=== PATIENT | female | born 1945 | race Caucasian/White ===

== ENCOUNTER 2023-02-12 09:30 | Outpatient (RCR) | payer MEDICARE, MEDICAID, SELFPAY ==
[2023-02-05 09:39] VITALS: BP 105/85; PULSE 80; RESP 18; TEMP 36.1; BMI 24.7
--- NOTE | 2023-02-05 12:19 | PCM.WC.HP ---
History of Present Illness Date of Service: 02/05/23 Chief Complaint: abdominal wall ulcer History of Wound: Stacie is a pleasant 77 yo woman that presents to the wound healing center today for evaluation and treatment for a nonhealing ulcer of her abdominal wall that has been present for approximately 6 months. She is a poor historian due to dementia/cognitive impairment. She resides at an assisted living facility in [facility]. She reports that she has 3 sons. She is unable to tell us if she has had any abdominal surgeries or C-sections but the area where the ulcer is located has the appearance of scar tissue and is at the suprapubic area where an incision for a or panniculectomy could be located. It does have the appearance of an old incision site. No surgical history is available and she denies history. She does have diabetes and reports that she has been obese previously and weighed 260 lbs at one point but is now approx. 140 lb. It looks like she has been treated with Silvadene. She had been treated with Keflex. [facility] Medical History (Updated 02/12/23 @ 07:[address] Joslyn Walsh, ) B12 deficiency Depression, major, in remission HTN (hypertension) Hyperlipidemia Insulin dependent diabetes mellitus Neuropathy due to type 2 diabetes mellitus ИВАН (obstructive sleep apnea) Osteoporosis Polymyalgia rheumatica Renal artery stenosis Restless leg syndrome Rheumatoid arthritis Type 2 diabetes mellitus without complications Home Medications abatacept 125 mg/mL subcutaneous auto-injector 125 mg subcut QWEEK 02/05/23 [History Last Taken Unknown] aspirin 81 mg tablet,delayed release (Adult Aspirin Regimen) 81 mg PO DAILY 02/05/23 [History Last Taken Unknown] atorvastatin 80 mg tablet (Lipitor) 80 mg PO DAILY 02/05/23 [History Last Taken Unknown] buspirone 5 mg tablet 10 mg PO BID 02/05/23 [History Last Taken Unknown] calcium carb,cit ER 600 mg-vit D3 12.5 mcg (500 unit) tablet,ext.rel tab PO 02/05/23 [History Last Taken Unknown] clopidogrel 75 mg tablet (Plavix) 75 mg PO DAILY 02/05/23 [History Last Taken Unknown] clotrimazole-betamethasone 1 %-0.05 % topical cream 1 applic topical BID 02/05/23 [History Last Taken Unknown] cyanocobalamin (vitamin B-12) 1,000 mcg capsule 1,000 mcg PO DAILY 02/05/23 [History Last Taken Unknown] cyclobenzaprine 10 mg tablet 10 mg PO BID 02/05/23 [History Last Taken Unknown] duloxetine 60 mg capsule,delayed release (Cymbalta) 60 mg PO DAILY 02/05/23 [History Last Taken Unknown] escitalopram oxalate 5 mg tablet (Lexapro) 5 mg PO DAILY 02/05/23 [History Last Taken Unknown] folic acid 800 mcg tablet 800 mcg PO DAILY 02/05/23 [History Last Taken Unknown] terbinafine HCl 250 mg tablet 250 mg PO DAILY 02/05/23 [History Last Taken Unknown] topiramate 25 mg sprinkle capsule (Topamax) 25 mg PO QHS 02/05/23 [History Last Taken Unknown] tramadol 50 mg tablet 50 mg PO Q6H PRN pain 02/05/23 [History Last Taken Unknown] Lactobacillus acidophilus (Acidophilus capsule) 500 mmu cells PO DAILY 02/11/23 [History Last Taken Unknown] Saccharomyces boulardii 250 mg capsule (Florastor) 250 mg PO BID 02/11/23 [History Last Taken Unknown] denosumab 60 mg/mL subcutaneous syringe (Prolia) mg subcut 02/11/23 [History Last Taken Unknown] diclofenac sodium 1 % topical gel topical 02/11/23 [History Last Taken Unknown] duloxetine 60 mg capsule,delayed release (Cymbalta) 60 mg PO DAILY 02/11/23 [History Last Taken Unknown] gabapentin 600 mg tablet (Neurontin) 600 mg PO TID 02/11/23 [History Last Taken Unknown] glucosamine sulfate 500 mg tablet (Glucosamine) 1,000 mg PO DAILY 02/11/23 [History Last Taken Unknown] insulin aspart U-100 100 unit/mL subcutaneous solution (Novolog U-100 Insulin aspart) 3 unit subcut DAILY 02/11/23 [History Last Taken Unknown] insulin detemir U-100 100 unit/mL (3 mL) subcutaneous pen (Levemir FlexPen) 3 unit subcut QHS 02/11/23 [History Last Taken Unknown] insulin glargine 100 unit/mL (3 mL) subcutaneous pen (Lantus Solostar U-100 Insulin) 1 unit subcut QPM 02/11/23 [History Last Taken Unknown] lisinopril 5 mg tablet 5 mg PO DAILY 02/11/23 [History Last Taken Unknown] loratadine 10 mg disintegrating tablet (Alavert) 10 mg PO DAILY 02/11/23 [History Last Taken Unknown] lorazepam 0.5 mg tablet (Ativan) 0.5 mg PO BID 02/11/23 [History Last Taken Unknown] magnesium hydroxide 400 mg/5 mL oral suspension (Dulcolax (magnesium hydroxide)) 5 ml PO DAILY 02/11/23 [History Last Taken Unknown] magnesium oxide 400 mg PO DAILY 02/11/23 [History Last Taken Unknown] multivitamin (Daily Multi-Vitamin tablet) 1 tab PO DAILY 02/11/23 [History Last Taken Unknown] omeprazole 40 mg capsule,delayed release 40 mg PO DAILY 02/11/23 [History Last Taken Unknown] oxybutynin chloride 10 mg tablet,extended release 24 hr 10 mg PO DAILY 02/11/23 [History Last Taken Unknown] potassium chloride 20 mEq tablet,extended release(part/cryst) (Klor-Con M) 20 meq PO BID 02/11/23 [History Last Taken Unknown] sulfasalazine 500 mg tablet (Azulfidine) 0.5 g PO DAILY 02/11/23 [History Last Taken Unknown] Allergy/AdvReac Type Severity Reaction Status Date / Time adhesive tape Allergy Mild rash Verified 02/05/23 09:53 morphine Allergy Mild Nausea Verified 02/05/23 09:53 tetracyclines Allergy Mild Rash Uncoded 02/05/23 09:53 unable to obtain Social History Smoking Status: Never smoker ROS Constitutional Constitutional: Denies chills, fatigue or fever(s) Eyes Eyes: Denies blurry vision, change in vision or loss of vision ENT HEENT: Denies dysphagia, hearing loss or sore throat Cardiovascular Cardiovascular: Denies chest pain, edema or palpitations Respiratory/Chest Respiratory/Chest: Denies dry cough, dyspnea, dyspnea on exertion, productive cough or wheezing Gastrointestinal Gastrointestinal: Denies diarrhea, nausea or vomiting Genitourinary Genitourinary: Denies dysuria or polyuria Musculoskeletal Musculoskeletal: Denies arthralgias, joint stiffness or muscle weakness Integumentary Integumentary: Reports erythema and wounds Neurologic Neurologic: Denies dizziness, memory loss or weakness Psychiatric Psychiatric: Denies homicidal ideation or suicidal ideation Endocrine Endocrinology: Denies polydipsia, polyphagia or polyuria Hematologic/Lymphatic Hematologic/Lymphatic: Denies easy bleeding or easy bruising Allergic/Immunologic Allergic/Immunologic: Denies throat swelling, tongue swelling or urticaria Vital Signs Vital Signs Vital Signs: 02/05/23 09:39 Temperature 97 F L Temperature Source Temporal Pulse Rate 80 Respiratory Rate 18 Blood Pressure 105/85 H Blood Pressure Mean 91 Blood Pressure Source Monitor Blood Pressure Position Semi-Fowlers Blood Pressure Location Left Arm Weight Weight: 63.503 kg Body Mass Index (BMI) 24.7 Physical Exam Const alert, oriented x3 and no apparent distress General Appearance: cooperative and comfortable HEENT normocephalic and head/scalp atraumatic Resp normal respiratory effort Effort and Inspection: able to speak in complete sentences Cardio regular rate and regular rhythm Skin Wounds: wounds noted Wound Narrative: as in clinical panel Psych mental status grossly normal, thought process normal, cooperative and affect normal Debridement Note Debridement Note Wound debrided: left lower abdomen Laterality: Left Type of Debridement: Excisional debridement Anesthesia Used: 4% Lidocaine Solution, 5% Lidocaine Gel and Cetacaine Depth: Down to and including healthy tissue and in the subcutaneous layer Percentage of wound debrided: 100 Instrument Used: #15 blade and Forceps Tissue Removed: Yellow slough, devitalized tissue Severity: Fat Layer Exposed Amount of bleeding with debridement: Mild Bleeding Controlled with: Compression and gauze Patient tolerated procedure: Patient tolerated procedure well Post-Debridement Measurements and Additional Note: Post-Debridement Measurements/Treatment PATRICIA - Nurse 1 - General Ulcer Assessment Start: 02/05/23 09:39 Freq: Status: Active Protocol: JOSUE Activity Type Activity Date Activity User E-sign Co-sign Detail Recorded Client Recorded Date Recorded By Document 02/05/23 09:39 [id number] 02/05/23 09:48 RB 02/05/23 09:39 - Today's Visit Information Type of service Initial Visit Arrival Mode Wheelchair Transfer Assistance None Patient Identification Verified (Name & Yes ) Patient Requires Transmission-Based No Precautions Height and Weight Height 5 ft 3 in Weight 63.503 kg Weight in Pounds 140.0 lbs Body Mass Index (BMI) 24.7 BMI Classification Normal BSA - Chris 1.66 Vital Signs Temperature (97.8 F-99.1 F) 97 F L Temperature Source Temporal Pulse Rate (60-100) 80 Pulse Location Monitor Respiratory Rate (12-18) 18 Respiratory rate source Observation Blood Pressure (90/60-120/80) 105/85 H Blood Pressure Mean 91 Source Monitor Position Semi-Fowlers Blood Pressure Location Left Arm Pain Scale: 0-10 Numeric Is Patient Pain Free? Yes Communication Assessment Preferred language Greek Electronic Plotting System Operator Required No Able to Read Yes Able to Write Yes Communication Tools None Right Hearing Abillity Normal Left Hearing Abillity Normal Visual Assistive Devices None Teaching Assessment Preferences Verbal,Written, Demonstration Barriers to Learning None Readiness To Learn Good Willingness to Engage in Self Management Med Activies Readiness to Engage in Self Management Med Activities Anxiety Level Calm Cooperation Cooperative Perception Coherent Interest in Health Problem Asks Questions Education Importance Acknowledges Need Does Patient Smoke tobacco or other No substances Smoking Status Never smoker Functional Assessment Recent Decline in Ability to Perform Ambulation, Bathing, Toileting, Transferring Culture/Confucianism/Manager Roofing Cultural/Confucianism Needs that may affect No Treatment Plan Would you allow our hospital remotely piloted vehicle controller to No meet you for the purpose of spiritual/ emotional support? Manager Roofing to contact place of anglican No Teaching: Wound Center *Welcome to the Wound Center -Person Taught Patient -Teaching Method Discussion -Response to teaching Verbalize understanding WC - Nurse 1 - General Ulcer Measurement Start: 02/05/23 09:39 Freq: Status: Active Protocol: Activity Type Activity Date Activity User E-sign Co-sign Detail Recorded Client Recorded Date Recorded By Document 02/05/23 09:39 [id number] 02/05/23 09:48 RB 02/05/23 09:39 Wound Center Nurse 1 1. L abd fold -Combined with other wound No -Current Size (cm) - Length 2 -Current Size (cm) - Width 10 -Current Size (cm) - Depth 0.3 -Total Square Cm 20 -Photo Taken Yes -Tunneling No -Undermining/Tunneling No -Circular Undermining No -Exudate Amt Large -Exudate Type Serosanguineous -Wound Margin Thickened & Rolled Under -Granulation Amt Small (1-33%) -Granulation Quality Red Jacket -Slough/Fibrin Yes -Necrosis Amt Large (67-100%) -Necrotic Tissue Type Adherent Slough -Structure Exposed N/A -Texture (Lupis-wound Skin Appearance) Assessed -Moisture (Lupis-wound Skin Appearance) Assessed -Color (Lupis-wound Skin Appearance) Assessed -Temperature (Lupis-wound Skin No Abnormality Appearance) (Pt Warm) -Tenderness on Palpation (Lupis-wound No Skin Appearance) -Foul Odor after Cleansing Yes -Anesthetic Used 4% Lidocaine Solution,5% Lidocaine Gel WC - Nurse 2 - General Ulcer CM Notes Start: 02/05/23 09:39 Freq: Status: Active Protocol: Activity Type Activity Date Activity User E-sign Co-sign Detail Recorded Client Recorded Date Recorded By Document 02/05/23 10:06 MW [id number] 02/05/23 10:34 MW 02/05/23 10:06 Wound Center Nurse 2 -Time 10:06 -Correct Patient Yes -Correct Side, Site, Position Yes -Correct Procedure Yes -Procedure Performed Yes -Type of Procedure Debridement -Clinical Debridement Subcutaneous -Tissue Removed Subcutaneous -Post Debridement (cm) - Length 2.7 -Post Debridement (cm) - Width 10.0 -Post Debridement (cm) - Depth 0.5 -Total Square (Post) (cm) 27.00 -Area of Debridement (cm) - Length 2.7 -Area of Debridement (cm) - Width 10.0 -Total Square (Area) (cm) 27.00 -Tunneling No -Undermining/Tunneling No -Circular Undermining No -Wound/Ulcer Outcome Not Healed -Ulcer Cleansing Rinsed/ Irrigated with Saline -Foul Odor after Cleansing No -Bioengineered Tissue No -Bleeding Controlled with Pressure -Treatment Response Procedure Tolerated Well -Offloading No -Debridement - Subq, 1st 20sq cm Yes -Debridement, SubQ, ea addt'l 20sq cm 1 or part thereof Pain Scale: 0-10 Numeric Is Patient Pain Free? Yes - Nurse 3 - General Ulcer D/C NN Start: 02/05/23 09:39 Freq: Status: Active Protocol: Activity Type Activity Date Activity User E-sign Co-sign Detail Recorded Client Recorded Date Recorded By Document 02/05/23 10:52 DL [id number] 02/05/23 10:54 DL 02/05/23 10:52 Wound Care Center Nurse 3 1. L abd fold -Ulcer Cleansing Rinsed/ Irrigated with Saline -Foul Odor after Cleansing No -Other Dressing hydrogel -Primary Dressing Covered/Secured with Dry Gauze, Secured with Tape Treatment Response Procedure Tolerated Well Pain Scale: 0-10 Numeric Is Patient Pain Free? Yes WC - Visit Discharge Discharge Condition Stable Ambulatory Status Ambulatory, Wheelchair Transportation Private [facility] Facility Type Grain Elevator Motor Starter Care Facility Orders Sent Yes Assessment/Plan Assessment/Plan (1) Nonhealing nonsurgical wound with fat layer exposed: CODE(S): T14.8XXA - Other injury of unspecified body region, initial encounter (2) Skin ulcer of abdomen with fat layer exposed: CODE(S): L98.492 - Non-pressure chronic ulcer of skin of other sites with fat layer exposed (3) Type 2 diabetes mellitus without complications: CODE(S): E11.9 - Type 2 diabetes mellitus without complications QUALIFIERS: Diabetes mellitus extermination supervisor insulin use: with extermination supervisor use Qualified Code(s): E11.9 - Type 2 diabetes mellitus without complications; Z79.4 - intermediate card tender (current) use of insulin (4) Neuropathy due to type 2 diabetes mellitus: CODE(S): E11.40 - Type 2 diabetes mellitus with diabetic neuropathy, unspecified (5) Insulin dependent diabetes mellitus: (6) Polymyalgia rheumatica: CODE(S): M35.3 - Polymyalgia rheumatica (7) Rheumatoid arthritis: CODE(S): M06.9 - Rheumatoid arthritis, unspecified QUALIFIERS: Rheumatoid arthritis location: multiple sites Rheumatoid factor presence: unspecified presence Qualified Code(s): M06.9 - Rheumatoid arthritis, unspecified (8) HTN (hypertension): CODE(S): I10 - Essential (primary) hypertension QUALIFIERS: Hypertension type: primary hypertension Qualified Code(s): I10 - Essential (primary) hypertension (9) Renal artery stenosis: CODE(S): I70.1 - Atherosclerosis of renal artery PLAN: Plan Debridement performed today in clinic as annotated above. At home wound-care instructions: Wash ulcer with soap and water. Apply Santyl to wound bed. If unable to obtain sample then would use Fibracol. Consider traditional wound vac. Keep dressing clean and dry. Off-loading: The patient was instructed to avoid pressure and friction on the affected areas. Reposition every 2 hours at minimum. Avoid prolonged standing and/or dangling of legs. When seated, feet should be elevated at chest level. Frequent ambulation is encouraged. Diet: Patient encouraged to increase protein intake while taking caution to avoid high carbohydrate and/or sugar intake. Labs/cultures/imaging: Culture taken today. Follow-up: Return in 1 week for wound care follow up. Return sooner or report to the emergency room should symptoms worsen, or new symptoms arise. Note: [employer] speech recognition kiss mixer software was used to create portions of this document. Sound-alike and misspelled words, as well as other kiss mixer errors may be contained in the documentation.
[2023-02-12 09:34] VITALS: BP 120/60; PULSE 88; RESP 18; TEMP 35.5; BMI 24.7
--- NOTE | 2023-02-12 13:10 | PN.PCM_ITS ---
History of Present Illness Date of Service: 02/12/23 Chief Complaint: abdominal wall ulcer History of Wound: Stacie is a pleasant 77 yo woman that presents to the wound healing center today for evaluation and treatment for a nonhealing ulcer of her abdominal wall that has been present for approximately 6 months. She is a poor historian due to dementia/cognitive impairment. She resides at an assisted living facility in [facility]. She reports that she has 3 sons. She is unable to tell us if she has had any abdominal surgeries or C-sections but the area where the ulcer is located has the appearance of scar tissue and is at the suprapubic area where an incision for a or panniculectomy could be located. It does have the appearance of an old incision site. No surgical history is available and she denies history. She does have diabetes and reports that she has been obese previously and weighed 260 lbs at one point but is now approx. 140 lb. It looks like she has been treated with Silvadene. She had been treated with Keflex. Subjective Subjective Stacie returns today for treatment of a nonhealing ulcer of her left abdominal skin fold. She was started on treatment with Santyl and has been tolerating this. Her wound culture was positive for several bacteria and she was started on Augmentin but does not know if she is taking this medication. It is present on her medication reconciliation form that was sent with her from the SNF where she resides. She admits increased pain but denies fever, chills, increased drainage or erythema. Objective Data Objective Data Vital Signs: Vital Signs Temp Pulse Resp BP 96 F L 88 18 120/60 02/12/23 09:34 02/12/23 09:34 02/12/23 09:34 02/12/23 09:34 Weight: 63.503 kg Body Mass Index (BMI) 24.7 Lab / Micro Data Micro: Microbiology 02/05/23 10:30 Wound Abcess - Abdominal Gram Stain - Final 02/05/23 10:30 Wound Abcess - Abdominal Wound Culture - Final Enterococcus faecalis 02/05/23 10:30 Wound Abcess - Abdominal Anaerobic Culture - Final No anaerobic bacteria isolated. Physical Exam Const alert, oriented x3 and no apparent distress General Appearance: cooperative and comfortable HEENT normocephalic and head/scalp atraumatic Resp normal respiratory effort Effort and Inspection: able to speak in complete sentences Cardio regular rate and regular rhythm Skin Wounds: wounds noted Wound Narrative: as in clinical panel Psych mental status grossly normal, thought process normal, cooperative and affect normal Debridement Note Debridement Note Wound debrided: left lower abdomen Laterality: Left Type of Debridement: Excisional debridement Anesthesia Used: 4% Lidocaine Solution, 5% Lidocaine Gel and Cetacaine Depth: Down to and including healthy tissue and in the subcutaneous layer Percentage of wound debrided: 100 Instrument Used: #15 blade and Forceps Tissue Removed: Yellow slough, devitalized tissue Severity: Fat Layer Exposed Amount of bleeding with debridement: Mild Bleeding Controlled with: Compression and gauze Patient tolerated procedure: Patient tolerated procedure well Post-Debridement Measurements and Additional Note: Post-Debridement Measurements/Treatment - Nurse 1 - General Ulcer Assessment Start: 02/05/23 09:39 Freq: Status: Active Protocol: JENNI Activity Type Activity Date Activity User E-sign Co-sign Detail Recorded Client Recorded Date Recorded By Document 02/05/23 09:39 [id number] 02/05/23 09:48 RB Document 02/12/23 09:34 RB [id number] 02/12/23 09:36 RB 02/05/23 02/12/23 09:39 09:34 - Today's Visit Information Type of service Initial Visit Follow-up Visit (Physician/BARGAIN TABLE CLERK ) Arrival Mode Wheelchair Ambulatory Transfer Assistance None None Patient Identification Verified (Name & Yes Yes ) Patient Requires Transmission-Based No No Precautions Height and Weight Height 5 ft 3 in Weight 63.503 kg Weight in Pounds 140.0 lbs Body Mass Index (BMI) 24.7 24.7 BMI Classification Normal Normal BSA - Chris 1.66 Vital Signs Temperature (97.8 F-99.1 F) 97 F L 96 F L Temperature Source Temporal Temporal Pulse Rate (60-100) 80 88 Pulse Location Monitor Monitor Respiratory Rate (12-18) 18 18 Respiratory rate source Observation Observation Blood Pressure (90/60-120/80) 105/85 H 120/60 Blood Pressure Mean (mm Hg) 91 80 Source Monitor Monitor Position Semi-Fowlers Semi-Fowlers Blood Pressure Location Left Arm Left Arm History Since Last Visit- (Skip if this is Patient's initial visit) Have you changed medications since your No last visit? Any new allergies or adverse reactions No Had a fall/change in ADL's that may No increase risk of falls Signs or symptoms of abuse and/or No neglect since last visit Have you been in the hospital since your No last visit? Has dressing in place as prescribed Yes Has compression in place as prescribed No Has offloadiing in place as prescribed No Experienced any changes in pain level or No management Pain Scale: 0-10 Numeric Is Patient Pain Free? Yes Yes Communication Assessment Preferred language Mosotho Quality Assurance Qa Lab Analyst Required No Able to Read Yes Able to Write Yes Communication Tools None Right Hearing Abillity Normal Left Hearing Abillity Normal Visual Assistive Devices None Teaching Assessment Preferences Verbal,Written, Demonstration Barriers to Learning None Readiness To Learn Good Willingness to Engage in Self Management Med Activies Readiness to Engage in Self Management Med Activities Anxiety Level Calm Cooperation Cooperative Perception Coherent Interest in Health Problem Asks Questions Education Importance Acknowledges Need Does Patient Smoke tobacco or other No substances Smoking Status Never smoker Functional Assessment Recent Decline in Ability to Perform Ambulation, Bathing, Toileting, Transferring Culture/Anabaptism/Helpdesk Analyst Cultural/Anabaptism Needs that may affect No Treatment Plan Would you allow our hospital marketing ambassador to No meet you for the purpose of spiritual/ emotional support? Helpdesk Analyst to contact place of nondenominational No Teaching: Wound Center *Welcome to the Wound Center -Person Taught Patient -Teaching Method Discussion -Response to teaching Verbalize understanding WC - Nurse 1 - General Ulcer Measurement Start: 02/05/23 09:39 Freq: Status: Active Protocol: Activity Type Activity Date Activity User E-sign Co-sign Detail Recorded Client Recorded Date Recorded By Document 02/05/23 09:39 RB [id number] 02/05/23 09:48 RB Document 02/12/23 09:34 RB [id number] 02/12/23 09:36 RB 02/05/23 02/12/23 09:39 09:34 Wound Center Nurse 1 1. L abd fold -Combined with other wound No No -Current Size (cm) - Length 2 0.1 -Current Size (cm) - Width 10 0.1 -Current Size (cm) - Depth 0.3 0.1 -Total Square Cm 20 0.01 -Photo Taken Yes -Tunneling No No -Undermining/Tunneling No No -Circular Undermining No No -Exudate Amt Large Large -Exudate Type Serosanguineous Serosanguineous -Wound Margin Thickened & Distinct, Rolled Under Outline Attached -Granulation Amt Small (1-33%) Medium (34-66%) -Granulation Quality [place] -Slough/Fibrin Yes Yes -Necrosis Amt Large (67-100%) Medium (34-66%) -Necrotic Tissue Type Adherent Slough Adherent Slough -Structure Exposed N/A N/A -Texture (Lupis-wound Skin Appearance) Assessed Assessed, Scarring -Moisture (Lupis-wound Skin Appearance) Assessed Assessed -Color (Lupis-wound Skin Appearance) Assessed Assessed -Temperature (Lupis-wound Skin No Abnormality No Abnormality Appearance) (Pt Warm) (Pt Warm) -Tenderness on Palpation (Lupis-wound No No Skin Appearance) -Ulcer Cleansing Wound Cleanser -Foul Odor after Cleansing Yes No -Anesthetic Used 4% Lidocaine 5% Lidocaine Solution,5% Gel Lidocaine Gel WC - Nurse 2 - General Ulcer CM Notes Start: 02/05/23 09:39 Freq: Status: Active Protocol: Activity Type Activity Date Activity User E-sign Co-sign Detail Recorded Client Recorded Date Recorded By Document 02/05/23 10:06 MW [id number] 02/05/23 10:34 MW Document 02/12/23 10:21 RB [id number] 02/12/23 10:22 RB 02/05/23 02/12/23 10:06 10:21 Wound Center Nurse 2 1. L abd fold -Time 10:06 10:21 -Correct Patient Yes Yes -Correct Side, Site, Position Yes Yes -Correct Procedure Yes Yes -Procedure Performed Yes Yes -Type of Procedure Debridement Debridement -Clinical Debridement Subcutaneous Subcutaneous -Tissue Removed Subcutaneous Subcutaneous -Post Debridement (cm) - Length 2.7 2.7 -Post Debridement (cm) - Width 10.0 10.0 -Post Debridement (cm) - Depth 0.5 0.5 -Total Square (Post) (cm) 27.00 27.00 -Area of Debridement (cm) - Length 2.7 2.7 -Area of Debridement (cm) - Width 10.0 10.0 -Total Square (Area) (cm) 27.00 27.00 -Tunneling No No -Undermining/Tunneling No No -Circular Undermining No No -Wound/Ulcer Outcome Not Healed Not Healed -Ulcer Cleansing Rinsed/ Rinsed/ Irrigated with Irrigated with Saline Saline -Foul Odor after Cleansing No No -Bioengineered Tissue No No -Bleeding Controlled with Pressure Pressure -Treatment Response Procedure Procedure Tolerated Well Tolerated Well -Offloading No No -Debridement - Subq, 1st 20sq cm Yes Yes -Debridement, SubQ, ea addt'l 20sq cm 1 1 or part thereof Pain Scale: 0-10 Numeric Is Patient Pain Free? Yes Yes - Nurse 3 - General Ulcer D/C NN Start: 02/05/23 09:39 Freq: Status: Active Protocol: Activity Type Activity Date Activity User E-sign Co-sign Detail Recorded Client Recorded Date Recorded By Document 02/05/23 10:52 DL [id number] 02/05/23 10:54 DL Document 02/12/23 10:22 RB [id number] 02/12/23 10:23 RB 02/05/23 02/12/23 10:52 10:22 Wound Care Center Nurse 3 1. L abd fold -Ulcer Cleansing Rinsed/ Rinsed/ Irrigated with Irrigated with Saline Saline -Foul Odor after Cleansing No No -Negative Pressure Wound Therapy N/A -Other Dressing hydrogel hydrogel -Primary Dressing Covered/Secured with Dry Gauze, Dry Gauze, Secured with Secured with Tape Tape -Other Covering abd Treatment Response Procedure Procedure Tolerated Well Tolerated Well Pain Scale: 0-10 Numeric Is Patient Pain Free? Yes Yes Teaching: Wound Center Dressing Your Wound -Person Taught Patient -Teaching Method Discussion, Demonstration -Response to teaching Verbalize understanding WC - Visit Discharge Discharge Condition Stable Stable Ambulatory Status Ambulatory, Wheelchair Wheelchair Transportation Private [facility] Medication Reconcilliation completed & No provided to patient/care provider Clinical Summary of Care Provided Yes Facility Type Header Set Up Operator Care Facility Orders Sent Yes Assessment/Plan Assessment/Plan (1) Nonhealing nonsurgical wound with fat layer exposed: CODE(S): T14.8XXA - Other injury of unspecified body region, initial encounter (2) Skin ulcer of abdomen with fat layer exposed: CODE(S): L98.492 - Non-pressure chronic ulcer of skin of other sites with fat layer exposed (3) Type 2 diabetes mellitus without complications: CODE(S): E11.9 - Type 2 diabetes mellitus without complications QUALIFIERS: Diabetes mellitus correction insulin use: with correction use Qualified Code(s): E11.9 - Type 2 diabetes mellitus without complications; Z79.4 - salvage determiner (current) use of insulin (4) Neuropathy due to type 2 diabetes mellitus: CODE(S): E11.40 - Type 2 diabetes mellitus with diabetic neuropathy, unspecified (5) Insulin dependent diabetes mellitus: (6) Polymyalgia rheumatica: CODE(S): M35.3 - Polymyalgia rheumatica (7) Rheumatoid arthritis: CODE(S): M06.9 - Rheumatoid arthritis, unspecified QUALIFIERS: Rheumatoid arthritis location: multiple sites Rheumatoid factor presence: unspecified presence Qualified Code(s): M06.9 - Rheumatoid arthritis, unspecified (8) HTN (hypertension): CODE(S): I10 - Essential (primary) hypertension QUALIFIERS: Hypertension type: primary hypertension Qualified Code(s): I10 - Essential (primary) hypertension (9) Renal artery stenosis: CODE(S): I70.1 - Atherosclerosis of renal artery PLAN: Plan Debridement performed today in clinic as annotated above. At home wound-care instructions: Wash ulcer with soap and water. Apply Santyl to wound bed. Consider traditional wound vac if not improving. Keep dressing clean and dry. Off-loading: The patient was instructed to avoid pressure and friction on the affected areas. Reposition every 2 hours at minimum. Avoid prolonged standing and/or dangling of legs. When seated, feet should be elevated at chest level. Frequent ambulation is encouraged. Diet: Patient encouraged to increase protein intake while taking caution to avoid high carbohydrate and/or sugar intake. Labs/cultures/imaging: Culture positive for Enterococcus Faecalis. Follow-up: Return in 2 weeks for wound care follow up. Return sooner or report to the emergency room should symptoms worsen, or new symptoms arise. Note: [employer] speech recognition outdoor power equipment mechanic software was used to create portions of this document. Sound-alike and misspelled words, as well as other outdoor power equipment mechanic errors may be contained in the documentation.
== END 2023-02-15 23:59 | disposition home or self-care (01) ==
LOC: WC 09:30
PROVIDERS: PCP Internal Medicine; Referring Provider Internal Medicine; Visit Provider Family Medicine
DX: E11.622 Type 2 diabetes mellitus with other skin ulcer (principal); L98.492 Non-pressure chronic ulcer of skin of other sites with fat layer exposed; M35.3 Polymyalgia rheumatica; F03.90 Unspecified dementia, unspecified severity, without behavioral disturbance, psychotic disturbance, mood disturbance, and anxiety; E11.40 Type 2 diabetes mellitus with diabetic neuropathy, unspecified; I70.1 Atherosclerosis of renal artery; Z79.4 Long term (current) use of insulin; I10 Essential (primary) hypertension; E78.5 Hyperlipidemia, unspecified; Z79.02 Long term (current) use of antithrombotics/antiplatelets; Z79.82 Long term (current) use of aspirin; Z79.899 Other long term (current) drug therapy; G47.33 Obstructive sleep apnea (adult) (pediatric)
CPT/HCPCS: 11042; 11045; 87070; 87075; 87077; 87186; 87205; 99203; G0463

== ENCOUNTER 2023-03-12 09:30 | Outpatient (RCR) | payer MEDICARE, MEDICAID, SELFPAY ==
[2023-02-16 00:41] VITALS: BP 120/60; PULSE 88; RESP 18; TEMP 35.5; BMI 24.7
[2023-03-05 09:28] VITALS: BP 137/71; PULSE 95; RESP 20; TEMP 36; BMI 24.7
--- NOTE | 2023-03-05 13:42 | PN.PCM_ITS ---
History of Present Illness Date of Service: 03/05/23 Chief Complaint: abdominal wall ulcer History of Wound: Stacie is a pleasant 77 yo woman that presents to the wound healing center today for evaluation and treatment for a nonhealing ulcer of her abdominal wall that has been present for approximately 6 months. She is a poor historian due to dementia/cognitive impairment. She resides at an assisted living facility in [facility]. She reports that she has 3 sons. She is unable to tell us if she has had any abdominal surgeries or C-sections but the area where the ulcer is located has the appearance of scar tissue and is at the suprapubic area where an incision for a or panniculectomy could be located. It does have the appearance of an old incision site. No surgical history is available and she denies history. She does have diabetes and reports that she has been obese previously and weighed 260 lbs at one point but is now approx. 140 lb. It looks like she has been treated with Silvadene. She had been treated with Keflex. Subjective Subjective Stacie returns today for treatment of a nonhealing ulcer of her left abdominal skin fold. She was started on treatment with Santyl and has been tolerating this. She has worsening of the helio-ulcer today and no change to the ulcer itself. She also reports having vaginal bleeding for the last month which she is going to see a physician for today. She admits increased pain but denies fever, chills, increased drainage or erythema. Objective Data Objective Data Vital Signs: Vital Signs Temp Pulse Resp BP 96.8 F L 95 20 H 137/71 H 03/05/23 09:28 03/05/23 09:28 03/05/23 09:28 03/05/23 09:28 Weight: 63.503 kg Body Mass Index (BMI) 24.7 Physical Exam Const alert, oriented x3 and no apparent distress General Appearance: cooperative and comfortable HEENT normocephalic and head/scalp atraumatic Resp normal respiratory effort Effort and Inspection: able to speak in complete sentences Cardio regular rate and regular rhythm Skin Skin Narrative: surrounding ulcer area there is erythema, skin breakdown and satellite lesions typical of candidal dermatitis General Skin Exam: erythema Wounds: wounds noted Wound Narrative: as in clinical panel Psych mental status grossly normal, thought process normal, cooperative and affect normal Debridement Note Debridement Note Wound debrided: left lateral abdomen Laterality: Left No debridement was completed: No debridement was completed today Post-Debridement Measurements and Additional Note: Post-Debridement Measurements/Treatment WC - Nurse 1 - General Ulcer Assessment Start: 03/05/23 09:24 Freq: Status: Active Protocol: JOSUE Activity Type Activity Date Activity User E-sign Co-sign Detail Recorded Client Recorded Date Recorded By Document 03/05/23 09:28 DL [id number] 03/05/23 09:37 DL 03/05/23 09:28 WC - Today's Visit Information Type of service Follow-up Visit (Physician/CROP SETTING OUT MACHINE OPERATOR ) Arrival Mode Wheelchair Transfer Assistance Manual Transfer Assist (Other) x1 Patient Identification Verified (Name & Yes ) Patient Requires Transmission-Based Yes Precautions Safety Precautions Fall Prevention Height and Weight Body Mass Index (BMI) 24.7 BMI Classification Normal Vital Signs Temperature (97.8 F-99.1 F) 96.8 F L Temperature Source Temporal Pulse Rate (60-100) 95 Pulse Location Monitor Respiratory Rate (12-18) 20 H Respiratory rate source Observation Blood Pressure (90/60-120/80) 137/71 H Blood Pressure Mean (mm Hg) 93 Source Monitor History Since Last Visit- (Skip if this is Patient's initial visit) Have you changed medications since your No last visit? Any new allergies or adverse reactions No Had a fall/change in ADL's that may No increase risk of falls Signs or symptoms of abuse and/or No neglect since last visit Have you been in the hospital since your No last visit? Has dressing in place as prescribed Yes Has compression in place as prescribed N/A Has offloadiing in place as prescribed N/A Experienced any changes in pain level or No management Pain Scale: 0-10 Numeric Is Patient Pain Free? Yes - Nurse 1 - General Ulcer Measurement Start: 03/05/23 09:24 Freq: Status: Active Protocol: Activity Type Activity Date Activity User E-sign Co-sign Detail Recorded Client Recorded Date Recorded By Document 03/05/23 09:28 DL [id number] 03/05/23 09:37 DL 03/05/23 09:28 Wound Center Nurse 1 1. L abd fold -Current Size (cm) - Length 2 -Current Size (cm) - Width 10 -Current Size (cm) - Depth 0.8 -Total Square Cm 20 -Exudate Amt Medium -Exudate Type Serosanguineous -Wound Margin Distinct, Outline Attached -Granulation Amt Large (67-100%) -Granulation Quality Pale,[place] -Necrosis Amt None Present (0 %) -Structure Exposed N/A -Texture (Helio-wound Skin Appearance) Excoriation, Scarring -Moisture (Helio-wound Skin Appearance) Weeping -Color (Helio-wound Skin Appearance) No Abnormality -Temperature (Helio-wound Skin No Abnormality Appearance) (Pt Warm) -Tenderness on Palpation (Helio-wound No Skin Appearance) -Ulcer Cleansing Soap and Water -Foul Odor after Cleansing No -Anesthetic Used 4% Lidocaine Solution WC - Nurse 2 - General Ulcer CM Notes Start: 03/05/23 09:24 Freq: Status: Active Protocol: Activity Type Activity Date Activity User E-sign Co-sign Detail Recorded Client Recorded Date Recorded By Document 03/05/23 10:20 MW Desktop 03/05/23 10:24 MW 03/05/23 10:20 Wound Center Nurse 2 -Time 10:21 -Correct Patient Yes -Correct Side, Site, Position Yes -Correct Procedure Yes -Procedure Performed No -Tunneling No -Undermining/Tunneling No -Circular Undermining No -Wound/Ulcer Outcome Not Healed -Ulcer Cleansing Rinsed/ Irrigated with Saline -Foul Odor after Cleansing No -Bioengineered Tissue No -Bleeding Controlled with NA Pain Scale: 0-10 Numeric Is Patient Pain Free? Yes Assessment/Plan Assessment/Plan (1) Nonhealing nonsurgical wound with fat layer exposed: CODE(S): T14.8XXA - Other injury of unspecified body region, initial encounter (2) Skin ulcer of abdomen with fat layer exposed: CODE(S): L98.492 - Non-pressure chronic ulcer of skin of other sites with fat layer exposed (3) Type 2 diabetes mellitus without complications: CODE(S): E11.9 - Type 2 diabetes mellitus without complications QUALIFIERS: Diabetes mellitus strap machine operator automatic insulin use: with prison use Qualified Code(s): E11.9 - Type 2 diabetes mellitus without complications; Z79.4 - milk wagon driver (current) use of insulin (4) Neuropathy due to type 2 diabetes mellitus: CODE(S): E11.40 - Type 2 diabetes mellitus with diabetic neuropathy, unspecified (5) Insulin dependent diabetes mellitus: (6) Polymyalgia rheumatica: CODE(S): M35.3 - Polymyalgia rheumatica (7) Rheumatoid arthritis: CODE(S): M06.9 - Rheumatoid arthritis, unspecified QUALIFIERS: Rheumatoid arthritis location: multiple sites Rheumatoid factor presence: unspecified presence Qualified Code(s): M06.9 - Rheumatoid arthritis, unspecified (8) HTN (hypertension): CODE(S): I10 - Essential (primary) hypertension QUALIFIERS: Hypertension type: primary hypertension Qualified Code(s): I10 - Essential (primary) hypertension (9) Renal artery stenosis: CODE(S): I70.1 - Atherosclerosis of renal artery PLAN: Plan Debridement performed today in clinic as annotated above. At home wound-care instructions: Wash ulcer with soap and water. Apply Santyl to wound bed and cover with Aquacel Extra and ABD. Consider traditional wound vac if not improving. Keep dressing clean and dry. Fluconazole prescribed for candidal dermatitis. Off-loading: The patient was instructed to avoid pressure and friction on the affected areas. Reposition every 2 hours at minimum. Avoid prolonged standing and/or dangling of legs. When seated, feet should be elevated at chest level. Frequent ambulation is encouraged. Diet: Patient encouraged to increase protein intake while taking caution to avoid high carbohydrate and/or sugar intake. Labs/cultures/imaging: Culture positive for Enterococcus Faecalis and treated with Augmentin. Follow-up: Return in 1 week for wound care follow up. Return sooner or report to the emergency room should symptoms worsen, or new symptoms arise. Note: [employer] speech recognition blanking machine operator software was used to create portions of this document. Sound-alike and misspelled words, as well as other blanking machine operator errors may be contained in the documentation.
[2023-03-12 09:36] VITALS: BP 162/72; PULSE 92; RESP 18; TEMP 35.5; BMI 24.7
--- NOTE | 2023-03-12 14:46 | PCM.WC.PN ---
History of Present Illness Date of Service: 03/12/23 Chief Complaint: abdominal wall ulcer History of Wound: Stacie is a pleasant 77 yo woman that presents to the wound healing center today for evaluation and treatment for a nonhealing ulcer of her abdominal wall that has been present for approximately 6 months. She is a poor historian due to dementia/cognitive impairment. She resides at an assisted living facility in [facility]. She reports that she has 3 sons. She is unable to tell us if she has had any abdominal surgeries or C-sections but the area where the ulcer is located has the appearance of scar tissue and is at the suprapubic area where an incision for a or panniculectomy could be located. It does have the appearance of an old incision site. No surgical history is available and she denies history. She does have diabetes and reports that she has been obese previously and weighed 260 lbs at one point but is now approx. 140 lb. It looks like she has been treated with Silvadene. She had been treated with Keflex. Subjective Subjective Stacie returns today for treatment of a nonhealing ulcer of her left abdominal skin fold. She has some improvement in the periwound but still significant candidal dermatitis. She did receive Fluconazole that was prescribed. She admits increased pain but denies fever, chills, increased drainage or erythema. Objective Data Objective Data Vital Signs: Vital Signs Temp Pulse Resp BP 96 F L 92 18 162/72 H 03/12/23 09:36 03/12/23 09:36 03/12/23 09:36 03/12/23 09:36 Weight: 63.503 kg Body Mass Index (BMI) 24.7 Physical Exam Const alert, oriented x3 and no apparent distress General Appearance: cooperative and comfortable HEENT normocephalic and head/scalp atraumatic Resp normal respiratory effort Effort and Inspection: able to speak in complete sentences Cardio regular rate and regular rhythm Skin Skin Narrative: surrounding ulcer area there is erythema, skin breakdown and satellite lesions typical of candidal dermatitis General Skin Exam: erythema Wounds: wounds noted Wound Narrative: as in clinical panel Psych mental status grossly normal, thought process normal, cooperative and affect normal Debridement Note Debridement Note Wound debrided: left lateral abdomen Laterality: Left No debridement was completed: No debridement was completed today Post-Debridement Measurements and Additional Note: Post-Debridement Measurements/Treatment WC - Nurse 1 - General Ulcer Assessment Start: 03/05/23 09:24 Freq: Status: Active Protocol: JOSUE Activity Type Activity Date Activity User E-sign Co-sign Detail Recorded Client Recorded Date Recorded By Document 03/05/23 09:28 DL [id number] 03/05/23 09:37 DL Document 03/12/23 09:36 RB [id number] 03/12/23 09:38 RB 03/05/23 03/12/23 09:28 09:36 WC - Today's Visit Information Type of service Follow-up Visit Follow-up Visit (Physician/ECONOMICS INSTRUCTOR (Physician/ECONOMICS INSTRUCTOR ) ) Arrival Mode Wheelchair Wheelchair Transfer Assistance Manual Manual Transfer Assist (Other) x1 Patient Identification Verified (Name & Yes Yes ) Patient Requires Transmission-Based Yes No Precautions Safety Precautions Fall Prevention Height and Weight Body Mass Index (BMI) 24.7 24.7 BMI Classification Normal Normal Vital Signs Temperature (97.8 F-99.1 F) 96.8 F L 96 F L Temperature Source Temporal Temporal Pulse Rate (60-100) 95 92 Pulse Location Monitor Monitor Respiratory Rate (12-18) 20 H 18 Respiratory rate source Observation Observation Blood Pressure (90/60-120/80) 137/71 H 162/72 H Blood Pressure Mean (mm Hg) 93 102 Source Monitor Monitor Position Sitting Blood Pressure Location Left Arm History Since Last Visit- (Skip if this is Patient's initial visit) Have you changed medications since your No No last visit? Any new allergies or adverse reactions No No Had a fall/change in ADL's that may No No increase risk of falls Signs or symptoms of abuse and/or No No neglect since last visit Have you been in the hospital since your No No last visit? Has dressing in place as prescribed Yes Yes Has compression in place as prescribed N/A Has offloadiing in place as prescribed N/A No Experienced any changes in pain level or No No management Pain Scale: 0-10 Numeric Is Patient Pain Free? Yes No lower abd -Description Aching -Intensity 5 -Duration (hours) Acute -Pain Behavior Withdrawal from Touch -Pain Aggravating Factors ADL's -Alleviating Factors/Interventions Medication -Effectiveness of Alleviating Factor/ Moderately Intervention effective - Nurse 1 - General Ulcer Measurement Start: 03/05/23 09:24 Freq: Status: Active Protocol: Activity Type Activity Date Activity User E-sign Co-sign Detail Recorded Client Recorded Date Recorded By Document 03/05/23 09:28 DL [id number] 03/05/23 09:37 DL Document 03/12/23 09:36 RB [id number] 03/12/23 09:38 RB 03/05/23 03/12/23 09:28 09:36 Wound Center Nurse 1 1. L abd fold -Combined with other wound No -Current Size (cm) - Length 2 9 -Current Size (cm) - Width 10 2 -Current Size (cm) - Depth 0.8 0.2 -Total Square Cm 20 18 -Tunneling No -Undermining/Tunneling No -Circular Undermining No -Exudate Amt Medium Large -Exudate Type Serosanguineous Serosanguineous -Wound Margin Distinct, Distinct, Outline Outline Attached Attached -Granulation Amt Large (67-100%) Medium (34-66%) -Granulation Quality Pale,Carbon Cliff Carbon Cliff -Slough/Fibrin Yes -Necrosis Amt None Present (0 Medium (34-66%) %) -Necrotic Tissue Type Adherent Slough -Structure Exposed N/A N/A -Texture (Lupis-wound Skin Appearance) Excoriation, Excoriation Scarring -Moisture (Lupis-wound Skin Appearance) Weeping Assessed -Color (Lupis-wound Skin Appearance) No Abnormality Erythema -Temperature (Lupis-wound Skin No Abnormality No Abnormality Appearance) (Pt Warm) (Pt Warm) -Tenderness on Palpation (Lupis-wound No No Skin Appearance) -Ulcer Cleansing Soap and Water Wound Cleanser -Foul Odor after Cleansing No No -Anesthetic Used 4% Lidocaine 5% Lidocaine Solution Gel WC - Nurse 2 - General Ulcer CM Notes Start: 03/05/23 09:24 Freq: Status: Active Protocol: Activity Type Activity Date Activity User E-sign Co-sign Detail Recorded Client Recorded Date Recorded By Document 03/05/23 10:20 MW Desktop 03/05/23 10:24 MW Document 03/12/23 09:56 MW [id number] 03/12/23 10:07 MW 03/05/23 03/12/23 10:20 09:56 Wound Center Nurse 2 1. L abd fold -Time 10:21 09:57 -Correct Patient Yes Yes -Correct Side, Site, Position Yes Yes -Correct Procedure Yes Yes -Procedure Performed No -Tunneling No No -Undermining/Tunneling No No -Circular Undermining No No -Wound/Ulcer Outcome Not Healed Not Healed -Ulcer Cleansing Rinsed/ Rinsed/ Irrigated with Irrigated with Saline Saline -Foul Odor after Cleansing No No -Bioengineered Tissue No No -Bleeding Controlled with NA NA Pain Scale: 0-10 Numeric Is Patient Pain Free? Yes Yes - Nurse 3 - General Ulcer D/C NN Start: 03/05/23 09:24 Freq: Status: Active Protocol: Activity Type Activity Date Activity User E-sign Co-sign Detail Recorded Client Recorded Date Recorded By Document 03/05/23 13:48 DL [id number] 03/05/23 13:50 DL Document 03/12/23 10:36 RB [id number] 03/12/23 10:37 RB 03/05/23 03/12/23 13:48 10:36 Wound Care Center Nurse 3 1. L abd fold -Ulcer Cleansing Rinsed/ Rinsed/ Irrigated with Irrigated with Saline Saline -Foul Odor after Cleansing No -Primary Dressing Applied Aquacel Extra Aquacel AG 4x4 -Other Dressing ABD -Primary Dressing Covered/Secured with Dry Gauze, Dry Gauze, Secured with Secured with Tape Tape -Aquacel Extra 1 -Aquacel AG 4x4 1 Treatment Response Procedure Procedure Tolerated Well Tolerated Well Pain Scale: 0-10 Numeric Is Patient Pain Free? Yes Yes - Visit Discharge Discharge Condition Stable Stable Ambulatory Status Ambulatory Wheelchair Transportation Private Auto Medication Reconcilliation completed & No provided to patient/care provider Clinical Summary of Care Provided Yes Facility Type Detention Care Facility Orders Sent Yes Assessment/Plan Assessment/Plan (1) Nonhealing nonsurgical wound with fat layer exposed: CODE(S): T14.8XXA - Other injury of unspecified body region, initial encounter (2) Skin ulcer of abdomen with fat layer exposed: CODE(S): L98.492 - Non-pressure chronic ulcer of skin of other sites with fat layer exposed (3) Type 2 diabetes mellitus without complications: CODE(S): E11.9 - Type 2 diabetes mellitus without complications QUALIFIERS: Diabetes mellitus marine oil terminal superintendent insulin use: with nursing home use Qualified Code(s): E11.9 - Type 2 diabetes mellitus without complications; Z79.4 - terminal make up operator (current) use of insulin (4) Neuropathy due to type 2 diabetes mellitus: CODE(S): E11.40 - Type 2 diabetes mellitus with diabetic neuropathy, unspecified (5) Insulin dependent diabetes mellitus: (6) Polymyalgia rheumatica: CODE(S): M35.3 - Polymyalgia rheumatica (7) Rheumatoid arthritis: CODE(S): M06.9 - Rheumatoid arthritis, unspecified QUALIFIERS: Rheumatoid arthritis location: multiple sites Rheumatoid factor presence: unspecified presence Qualified Code(s): M06.9 - Rheumatoid arthritis, unspecified (8) HTN (hypertension): CODE(S): I10 - Essential (primary) hypertension QUALIFIERS: Hypertension type: primary hypertension Qualified Code(s): I10 - Essential (primary) hypertension (9) Renal artery stenosis: CODE(S): I70.1 - Atherosclerosis of renal artery PLAN: Plan Debridement performed today in clinic as annotated above. At home wound-care instructions: Wash ulcer with soap and water. Hold Santyl for now due to irritation and infection. Apply Aquacel Extra to ulcer and cover with ABD. Consider traditional wound vac if not improving. Keep dressing clean and dry. Voriconazole prescribed for candidal dermatitis. Off-loading: The patient was instructed to avoid pressure and friction on the affected areas. Reposition every 2 hours at minimum. Avoid prolonged standing and/or dangling of legs. When seated, feet should be elevated at chest level. Frequent ambulation is encouraged. Diet: Patient encouraged to increase protein intake while taking caution to avoid high carbohydrate and/or sugar intake. Labs/cultures/imaging: Culture positive for Enterococcus Faecalis and completed treatment with Augmentin. Follow-up: Return in 1 week for wound care follow up. Return sooner or report to the emergency room should symptoms worsen, or new symptoms arise. Note: [employer] speech recognition manager six sigma software was used to create portions of this document. Sound-alike and misspelled words, as well as other manager six sigma errors may be contained in the documentation.
== END 2023-03-18 23:59 | disposition home or self-care (01) ==
LOC: WC 09:30
PROVIDERS: PCP Internal Medicine; Referring Provider Internal Medicine; Visit Provider Family Medicine
DX: E11.622 Type 2 diabetes mellitus with other skin ulcer (principal); L98.492 Non-pressure chronic ulcer of skin of other sites with fat layer exposed; M05.9 Rheumatoid arthritis with rheumatoid factor, unspecified; M35.3 Polymyalgia rheumatica; M06.9 Rheumatoid arthritis, unspecified; F03.90 Unspecified dementia, unspecified severity, without behavioral disturbance, psychotic disturbance, mood disturbance, and anxiety; E11.40 Type 2 diabetes mellitus with diabetic neuropathy, unspecified; I70.1 Atherosclerosis of renal artery; Z79.4 Long term (current) use of insulin; B37.2 Candidiasis of skin and nail; I10 Essential (primary) hypertension
CPT/HCPCS: 99212; 99213; G0463

== ENCOUNTER 2023-04-09 09:30 | Outpatient (RCR) | payer MEDICARE, MEDICAID, SELFPAY ==
[2023-03-19 00:38] VITALS: BP 162/72; PULSE 92; RESP 18; TEMP 35.5; BMI 24.7
[2023-03-26 09:30] VITALS: BP 115/66; PULSE 87; RESP 18; TEMP 35.7; BMI 24.7
--- NOTE | 2023-03-26 10:15 | PN.PCM_ITS ---
History of Present Illness Date of Service: 03/26/23 Chief Complaint: abdominal wall ulcer History of Wound: Stacie is a pleasant 77 yo woman that presents to the wound healing center today for evaluation and treatment for a nonhealing ulcer of her abdominal wall that has been present for approximately 6 months. She is a poor historian due to dementia/cognitive impairment. She resides at an assisted living facility in [facility]. She reports that she has 3 sons. She is unable to tell us if she has had any abdominal surgeries or C-sections but the area where the ulcer is located has the appearance of scar tissue and is at the suprapubic area where an incision for a or panniculectomy could be located. It does have the appearance of an old incision site. No surgical history is available and she denies history. She does have diabetes and reports that she has been obese previously and weighed 260 lbs at one point but is now approx. 140 lb. It looks like she has been treated with Silvadene. She had been treated with Keflex. Subjective Subjective Stacie returns today for treatment of a nonhealing ulcer of her left abdominal skin fold. She has some improvement in the periwound but still significant candidal dermatitis. She did receive Fluconazole that was prescribed. She admits increased pain but denies fever, chills, increased drainage or erythema. Objective Data Objective Data Vital Signs: Vital Signs Temp Pulse Resp BP 96.3 F L 87 18 115/66 03/26/23 09:30 03/26/23 09:30 03/26/23 09:30 03/26/23 09:30 Weight: 63.503 kg Body Mass Index (BMI) 24.7 Physical Exam Const alert, oriented x3 and no apparent distress General Appearance: cooperative and comfortable HEENT normocephalic and head/scalp atraumatic Resp normal respiratory effort Effort and Inspection: able to speak in complete sentences Cardio regular rate and regular rhythm Skin Skin Narrative: surrounding ulcer area there is erythema, skin breakdown and satellite lesions typical of candidal dermatitis General Skin Exam: erythema Wounds: wounds noted Wound Narrative: as in clinical panel Psych mental status grossly normal, thought process normal, cooperative and affect normal Debridement Note Debridement Note Wound debrided: left lateral abdomen Laterality: Left Wound Grade/Stage: Stage 3 Type of Debridement: Excisional debridement Anesthesia Used: 4% Lidocaine Solution and 5% Lidocaine Gel Depth: Down to and including healthy tissue and in the subcutaneous layer Percentage of wound debrided: 100 Instrument Used: 7mm curette Tissue Removed: Yellow slough, devitalized tissue Severity: Fat Layer Exposed Amount of bleeding with debridement: Mild Bleeding Controlled with: Compression and gauze Patient tolerated procedure: Patient tolerated procedure well Post-Debridement Measurements and Additional Note: Post-Debridement Measurements/Treatment WC - Nurse 1 - General Ulcer Assessment Start: 03/26/23 09:29 Freq: Status: Active Protocol: JOSUE Activity Type Activity Date Activity User E-sign Co-sign Detail Recorded Client Recorded Date Recorded By Document 03/26/23 09:30 RB Desktop 03/26/23 09:32 RB 03/26/23 09:30 WC - Today's Visit Information Type of service Follow-up Visit (Physician/BOWLING BALL ENGRAVER ) Arrival Mode Wheelchair Transfer Assistance Manual Patient Identification Verified (Name & No ) Patient Requires Transmission-Based No Precautions Height and Weight Body Mass Index (BMI) 24.7 BMI Classification Normal Vital Signs Temperature (97.8 F-99.1 F) 96.3 F L Temperature Source Temporal Pulse Rate (60-100) 87 Pulse Location Monitor Respiratory Rate (12-18) 18 Respiratory rate source Observation Blood Pressure (90/60-120/80) 115/66 Blood Pressure Mean (mm Hg) 82 Source Monitor Position Semi-Fowlers Blood Pressure Location Left Arm History Since Last Visit- (Skip if this is Patient's initial visit) Have you changed medications since your No last visit? Any new allergies or adverse reactions No Had a fall/change in ADL's that may No increase risk of falls Signs or symptoms of abuse and/or No neglect since last visit Have you been in the hospital since your No last visit? Has dressing in place as prescribed Yes Has compression in place as prescribed No Has offloadiing in place as prescribed No Experienced any changes in pain level or No management Pain Scale: 0-10 Numeric Is Patient Pain Free? No abd fold -Description Aching -Intensity 3 -Duration (hours) Acute -Pain Behavior Withdrawal from Touch -Pain Aggravating Factors Debridement -Alleviating Factors/Interventions Medication -Effectiveness of Alleviating Factor/ Minimally Intervention effective WC - Nurse 1 - General Ulcer Measurement Start: 03/26/23 09:29 Freq: Status: Active Protocol: Activity Type Activity Date Activity User E-sign Co-sign Detail Recorded Client Recorded Date Recorded By Document 03/26/23 09:30 RB Desktop 03/26/23 09:32 RB 03/26/23 09:30 Wound Center Nurse 1 1. L abd fold -Combined with other wound No -Current Size (cm) - Length 2 -Current Size (cm) - Width 8.2 -Current Size (cm) - Depth 0.2 -Total Square Cm 16.4 -Photo Taken Yes -Tunneling No -Undermining/Tunneling No -Circular Undermining No -Exudate Amt Medium -Exudate Type Serosanguineous -Wound Margin Thickened & Rolled Under -Granulation Amt Medium (34-66%) -Granulation Quality Lyles -Slough/Fibrin Yes -Necrosis Amt Medium (34-66%) -Necrotic Tissue Type Adherent Slough -Structure Exposed N/A -Texture (Helio-wound Skin Appearance) Assessed, Excoriation -Moisture (Helio-wound Skin Appearance) Assessed -Color (Helio-wound Skin Appearance) Erythema -Temperature (Helio-wound Skin No Abnormality Appearance) (Pt Warm) -Tenderness on Palpation (Helio-wound No Skin Appearance) -Ulcer Cleansing Wound Cleanser -Foul Odor after Cleansing No -Anesthetic Used 5% Lidocaine Gel WC - Nurse 3 - General Ulcer D/C NN Start: 03/26/23 09:29 Freq: Status: Active Protocol: Activity Type Activity Date Activity User E-sign Co-sign Detail Recorded Client Recorded Date Recorded By Document 03/26/23 09:59 OH [id number] 03/26/23 10:04 OH 03/26/23 09:59 Wound Care Center Nurse 3 -Ulcer Cleansing Soap and Water -Primary Dressing Applied Aquacel AG 4x4 -Other Dressing 2 abds -Aquacel AG 4x4 1 Pain Scale: 0-10 Numeric Is Patient Pain Free? Yes WC - Visit Discharge Discharge Condition Stable Medication Reconcilliation completed & No provided to patient/care provider Clinical Summary of Care Provided Yes Notes: residential Assessment/Plan Assessment/Plan (1) Nonhealing nonsurgical wound with fat layer exposed: CODE(S): T14.8XXA - Other injury of unspecified body region, initial encounter (2) Skin ulcer of abdomen with fat layer exposed: CODE(S): L98.492 - Non-pressure chronic ulcer of skin of other sites with fat layer exposed (3) Type 2 diabetes mellitus without complications: CODE(S): E11.9 - Type 2 diabetes mellitus without complications QUALIFIERS: Diabetes mellitus correction insulin use: with keno terminal operator use Qualified Code(s): E11.9 - Type 2 diabetes mellitus without complications; Z79.4 - retirement (current) use of insulin (4) Neuropathy due to type 2 diabetes mellitus: CODE(S): E11.40 - Type 2 diabetes mellitus with diabetic neuropathy, unspecified (5) Insulin dependent diabetes mellitus: (6) Polymyalgia rheumatica: CODE(S): M35.3 - Polymyalgia rheumatica (7) Rheumatoid arthritis: CODE(S): M06.9 - Rheumatoid arthritis, unspecified QUALIFIERS: Rheumatoid arthritis location: multiple sites Rheumatoid factor presence: unspecified presence Qualified Code(s): M06.9 - Rheumatoid arthritis, unspecified (8) HTN (hypertension): CODE(S): I10 - Essential (primary) hypertension QUALIFIERS: Hypertension type: primary hypertension Qualified Code(s): I10 - Essential (primary) hypertension (9) Renal artery stenosis: CODE(S): I70.1 - Atherosclerosis of renal artery PLAN: Plan Debridement performed today in clinic as annotated above. At home wound-care instructions: Wash ulcer with soap and water. Apply Aquacel Extra to ulcer and cover with ABD. Consider traditional wound vac if not improving. Keep dressing clean and dry. Apply A and D to helio-wound. Dermatitis improved but still present. Apply lotrisone to right breast skin fold. Off-loading: The patient was instructed to avoid pressure and friction on the affected areas. Reposition every 2 hours at minimum. Avoid prolonged standing and/or dangling of legs. When seated, feet should be elevated at chest level. Frequent ambulation is encouraged. Diet: Patient encouraged to increase protein intake while taking caution to avoid high carbohydrate and/or sugar intake. Labs/cultures/imaging: Culture positive for Enterococcus Faecalis and completed treatment with Augmentin. Follow-up: Return in 1 week for wound care follow up. Return sooner or report to the emergency room should symptoms worsen, or new symptoms arise. Note: [employer] speech recognition engineer third assistant software was used to create portions of this document. Sound-alike and misspelled words, as well as other engineer third assistant errors may be contained in the documentation.
[2023-04-09 09:50] VITALS: BP 107/65; PULSE 92; RESP 18; TEMP 35.6; BMI 24.7
--- NOTE | 2023-04-09 13:35 | PCM.WC.PN ---
History of Present Illness Date of Service: 04/09/23 Chief Complaint: abdominal wall ulcer History of Wound: Stacie is a pleasant 77 yo woman that presents to the wound healing center today for evaluation and treatment for a nonhealing ulcer of her abdominal wall that has been present for approximately 6 months. She is a poor historian due to dementia/cognitive impairment. She resides at an assisted living facility in [facility]. She reports that she has 3 sons. She is unable to tell us if she has had any abdominal surgeries or C-sections but the area where the ulcer is located has the appearance of scar tissue and is at the suprapubic area where an incision for a or panniculectomy could be located. It does have the appearance of an old incision site. No surgical history is available and she denies history. She does have diabetes and reports that she has been obese previously and weighed 260 lbs at one point but is now approx. 140 lb. It looks like she has been treated with Silvadene previously. She had been treated with Keflex. Subjective Subjective Stacie returns today for treatment of a nonhealing ulcer of her left abdominal skin fold. She has some improvement in the periwound but still mild erythema. SNF has been dressing the ulcer with Aquacel Ag and ABD daily per SEP. Patient is a poor historian due to dementia. She admits increased pain but denies fever, chills, increased drainage or erythema. Objective Data Objective Data Vital Signs: Vital Signs Temp Pulse Resp BP 96.1 F L 92 18 107/65 04/09/23 09:50 04/09/23 09:50 04/09/23 09:50 04/09/23 09:50 Weight: 63.503 kg Body Mass Index (BMI) 24.7 Physical Exam Const alert, oriented x3 and no apparent distress General Appearance: cooperative and comfortable HEENT normocephalic and head/scalp atraumatic Resp normal respiratory effort Effort and Inspection: able to speak in complete sentences Cardio regular rate and regular rhythm Skin Skin Narrative: surrounding ulcer area there is erythema, skin breakdown and satellite lesions typical of candidal dermatitis General Skin Exam: erythema Wounds: wounds noted Wound Narrative: as in clinical panel Psych mental status grossly normal, thought process normal, cooperative and affect normal Debridement Note Debridement Note Wound debrided: left lateral abdomen Laterality: Left Wound Grade/Stage: Stage 3 Type of Debridement: Excisional debridement Anesthesia Used: 4% Lidocaine Solution and 5% Lidocaine Gel Depth: Down to and including healthy tissue and in the subcutaneous layer Percentage of wound debrided: 100 Instrument Used: 5mm curette Tissue Removed: Yellow slough, devitalized tissue Severity: Fat Layer Exposed Amount of bleeding with debridement: Mild Bleeding Controlled with: Compression and gauze Patient tolerated procedure: Patient tolerated procedure well Post-Debridement Measurements and Additional Note: Post-Debridement Measurements/Treatment - Nurse 1 - General Ulcer Assessment Start: 03/26/23 09:29 Freq: Status: Active Protocol: [id number] Activity Type Activity Date Activity User E-sign Co-sign Detail Recorded Client Recorded Date Recorded By Document 03/26/23 09:30 RB Desktop 03/26/23 09:32 RB Document 04/09/23 09:50 RB Desktop 04/09/23 09:52 RB 03/26/23 04/09/23 09:30 09:50 - Today's Visit Information Type of service Follow-up Visit Follow-up Visit (Physician/CHARTER BUS DRIVER (Physician/CHARTER BUS DRIVER ) ) Arrival Mode Wheelchair Wheelchair Transfer Assistance Manual Manual Patient Identification Verified (Name & No Yes ) Patient Requires Transmission-Based No No Precautions Height and Weight Body Mass Index (BMI) 24.7 24.7 BMI Classification Normal Normal Vital Signs Temperature (97.8 F-99.1 F) 96.3 F L 96.1 F L Temperature Source Temporal Temporal Pulse Rate (60-100) 87 92 Pulse Location Monitor Monitor Respiratory Rate (12-18) 18 18 Respiratory rate source Observation Observation Blood Pressure (90/60-120/80) 115/66 107/65 Blood Pressure Mean (mm Hg) 82 79 Source Monitor Monitor Position Semi-Fowlers Sitting Blood Pressure Location Left Arm Right Arm History Since Last Visit- (Skip if this is Patient's initial visit) Have you changed medications since your No No last visit? Any new allergies or adverse reactions No No Had a fall/change in ADL's that may No No increase risk of falls Signs or symptoms of abuse and/or No No neglect since last visit Have you been in the hospital since your No No last visit? Has dressing in place as prescribed Yes Yes Has compression in place as prescribed No No Has offloadiing in place as prescribed No No Experienced any changes in pain level or No No management Pain Scale: 0-10 Numeric Is Patient Pain Free? No Yes abd fold -Description Aching -Intensity 3 -Duration (hours) Acute -Pain Behavior Withdrawal from Touch -Pain Aggravating Factors Debridement -Alleviating Factors/Interventions Medication -Effectiveness of Alleviating Factor/ Minimally Intervention effective WC - Nurse 1 - General Ulcer Measurement Start: 03/26/23 09:29 Freq: Status: Active Protocol: Activity Type Activity Date Activity User E-sign Co-sign Detail Recorded Client Recorded Date Recorded By Document 03/26/23 09:30 RB Desktop 03/26/23 09:32 RB Document 04/09/23 09:50 RB Desktop 04/09/23 09:52 RB 03/26/23 04/09/23 09:30 09:50 Wound Center Nurse 1 1. L abd fold -Combined with other wound No No -Current Size (cm) - Length 2 7.7 -Current Size (cm) - Width 8.2 8.8 -Current Size (cm) - Depth 0.2 0.2 -Total Square Cm 16.4 67.76 -Photo Taken Yes -Tunneling No No -Undermining/Tunneling No No -Circular Undermining No No -Exudate Amt Medium Large -Exudate Type Serosanguineous Serosanguineous -Wound Margin Thickened & Thickened & Rolled Under Rolled Under -Granulation Amt Medium (34-66%) Large (67-100%) -Granulation Quality [place],Red -Slough/Fibrin Yes Yes -Necrosis Amt Medium (34-66%) Small (1-33%) -Necrotic Tissue Type Adherent Slough Adherent Slough -Structure Exposed N/A N/A -Texture (Helio-wound Skin Appearance) Assessed, Assessed, Excoriation Excoriation -Moisture (Helio-wound Skin Appearance) Assessed Assessed -Color (Helio-wound Skin Appearance) Erythema Assessed -Temperature (Helio-wound Skin No Abnormality No Abnormality Appearance) (Pt Warm) (Pt Warm) -Tenderness on Palpation (Helio-wound No No Skin Appearance) -Ulcer Cleansing Wound Cleanser Wound Cleanser -Foul Odor after Cleansing No No -Anesthetic Used 5% Lidocaine 4% Lidocaine Gel Solution WC - Nurse 2 - General Ulcer CM Notes Start: 03/26/23 09:29 Freq: Status: Active Protocol: Activity Type Activity Date Activity User E-sign Co-sign Detail Recorded Client Recorded Date Recorded By Document 03/26/23 12:40 PL [id number] 03/26/23 12:41 PL Document 04/09/23 13:06 PL [id number] 04/09/23 13:07 PL 03/26/23 04/09/23 12:40 13:06 Wound Center Nurse 2 1. L abd fold -Time 09:38 10:21 -Correct Patient Yes Yes -Correct Side, Site, Position Yes Yes -Correct Procedure Yes Yes -Procedure Performed Yes Yes -Type of Procedure Debridement Debridement -Clinical Debridement Subcutaneous Subcutaneous -Tissue Removed Subcutaneous Subcutaneous -Post Debridement (cm) - Length 2.0 2.3 -Post Debridement (cm) - Width 8.2 8.0 -Post Debridement (cm) - Depth 0.2 0.2 -Total Square (Post) (cm) 16.40 18.40 -Area of Debridement (cm) - Length 2.0 2.3 -Area of Debridement (cm) - Width 8.2 8.0 -Total Square (Area) (cm) 16.40 18.40 -Tunneling No No -Undermining/Tunneling No No -Circular Undermining No No -Wound/Ulcer Outcome Not Healed Not Healed -Ulcer Cleansing Rinsed/ Rinsed/ Irrigated with Irrigated with Saline Saline -Foul Odor after Cleansing No No -Bioengineered Tissue No No -Bleeding Controlled with Pressure Pressure -Treatment Response Procedure Procedure Tolerated Well Tolerated Well -Debridement - Subq, 1st 20sq cm Yes Yes Pain Scale: 0-10 Numeric Is Patient Pain Free? Yes Yes WC - Nurse 3 - General Ulcer D/C NN Start: 03/26/23 09:29 Freq: Status: Active Protocol: Activity Type Activity Date Activity User E-sign Co-sign Detail Recorded Client Recorded Date Recorded By Document 03/26/23 09:59 MT [id number] 03/26/23 10:04 MT Document 04/09/23 10:49 RB Desktop 04/09/23 10:50 RB 03/26/23 04/09/23 09:59 10:49 Wound Care Center Nurse 3 1. L abd fold -Ulcer Cleansing Soap and Water Rinsed/ Irrigated with Saline -Primary Dressing Applied Aquacel AG 4x4 Aquacel Extra -Other Dressing 2 abds abd ([facility]antyl [facility]) -Primary Dressing Covered/Secured with Dry Gauze, Secured with Tape -Aquacel Extra 1 -Aquacel AG 4x4 1 Treatment Response Procedure Tolerated Well Pain Scale: 0-10 Numeric Is Patient Pain Free? Yes Yes Teaching: Wound Center Dressing Your Wound -Person Taught Patient -Teaching Method Discussion, Demonstration -Response to teaching Unable to comprehend WC - Visit Discharge Discharge Condition Stable Stable Ambulatory Status Wheelchair Transportation Fpc Medication Reconcilliation completed & No No provided to patient/care provider Clinical Summary of Care Provided Yes Yes Notes: [facility] Assessment/Plan Assessment/Plan (1) Nonhealing nonsurgical wound with fat layer exposed: CODE(S): T14.8XXA - Other injury of unspecified body region, initial encounter (2) Skin ulcer of abdomen with fat layer exposed: CODE(S): L98.492 - Non-pressure chronic ulcer of skin of other sites with fat layer exposed (3) Type 2 diabetes mellitus without complications: CODE(S): E11.9 - Type 2 diabetes mellitus without complications QUALIFIERS: Diabetes mellitus buttermilk drier operator insulin use: with buttermilk drier operator use Qualified Code(s): E11.9 - Type 2 diabetes mellitus without complications; Z79.4 - intermodal customer service (current) use of insulin (4) Neuropathy due to type 2 diabetes mellitus: CODE(S): E11.40 - Type 2 diabetes mellitus with diabetic neuropathy, unspecified (5) Insulin dependent diabetes mellitus: (6) Polymyalgia rheumatica: CODE(S): M35.3 - Polymyalgia rheumatica (7) Rheumatoid arthritis: CODE(S): M06.9 - Rheumatoid arthritis, unspecified QUALIFIERS: Rheumatoid arthritis location: multiple sites Rheumatoid factor presence: unspecified presence Qualified Code(s): M06.9 - Rheumatoid arthritis, unspecified (8) HTN (hypertension): CODE(S): I10 - Essential (primary) hypertension QUALIFIERS: Hypertension type: primary hypertension Qualified Code(s): I10 - Essential (primary) hypertension (9) Renal artery stenosis: CODE(S): I70.1 - Atherosclerosis of renal artery PLAN: Plan Debridement performed today in clinic as annotated above. At home wound-care instructions: Wash ulcer with soap and water daily and pat dry. Apply Santyl nickel thickness to largest area of ulcer. Apply Aquacel Ag over Santyl and to other smaller ulcers bilaterally and cover with ABD. Keep dressing clean and dry. Apply A and D to helio-wound. Dermatitis improved but still present. Apply lotrisone to right breast skin fold. Off-loading: The patient was instructed to avoid pressure and friction on the affected areas. Reposition every 2 hours at minimum. Avoid prolonged standing and/or dangling of legs. When seated, feet should be elevated at chest level. Frequent ambulation is encouraged. Diet: Patient encouraged to increase protein intake while taking caution to avoid high carbohydrate and/or sugar intake. Labs/cultures/imaging: Culture positive for Enterococcus Faecalis and completed treatment with Augmentin. Follow-up: Return in 2 weeks for wound care follow up. Return sooner or report to the emergency room should symptoms worsen, or new symptoms arise. Note: [employer] speech recognition licensed clinician software was used to create portions of this document. Sound-alike and misspelled words, as well as other licensed clinician errors may be contained in the documentation.
== END 2023-04-17 23:59 | disposition home or self-care (01) ==
LOC: WC 09:30
PROVIDERS: PCP Internal Medicine; Referring Provider Internal Medicine; Visit Provider Family Medicine
DX: E11.622 Type 2 diabetes mellitus with other skin ulcer (principal); L98.492 Non-pressure chronic ulcer of skin of other sites with fat layer exposed; M35.3 Polymyalgia rheumatica; M06.9 Rheumatoid arthritis, unspecified; F03.90 Unspecified dementia, unspecified severity, without behavioral disturbance, psychotic disturbance, mood disturbance, and anxiety; E11.40 Type 2 diabetes mellitus with diabetic neuropathy, unspecified; Z79.4 Long term (current) use of insulin; B37.2 Candidiasis of skin and nail; I10 Essential (primary) hypertension
CPT/HCPCS: 11042

== ENCOUNTER 2023-05-14 09:15 | Outpatient (RCR) | payer MEDICARE, MEDICAID, SELFPAY ==
[2023-04-18 00:24] VITALS: BP 107/65; PULSE 92; RESP 18; TEMP 35.6; BMI 24.7
--- NOTE | 2023-04-30 12:32 | PN.PCM_ITS ---
History of Present Illness Date of Service: 04/30/23 Chief Complaint: abdominal wall ulcer History of Wound: Stacie is a pleasant 77 yo woman that presents to the wound healing center today for evaluation and treatment for a nonhealing ulcer of her abdominal wall that has been present for approximately 6 months. She is a poor historian due to dementia/cognitive impairment. She resides at an assisted living facility in [facility]. She reports that she has 3 sons. She is unable to tell us if she has had any abdominal surgeries or C-sections but the area where the ulcer is located has the appearance of scar tissue and is at the suprapubic area where an incision for a or panniculectomy could be located. It does have the appearance of an old incision site. No surgical history is available and she denies history. She does have diabetes and reports that she has been obese previously and weighed 260 lbs at one point but is now approx. 140 lb. It looks like she has been treated with Silvadene previously. She had been treated with Keflex. Subjective Subjective Stacie returns today for treatment of a nonhealing ulcer of her left abdominal skin fold. She has significant improvement in the periwound and the ulcer is smaller and showing more granulation. SNF has been dressing the ulcer with Santyl, Aquacel Ag and ABD daily per SEP. Patient is a poor historian due to dementia. She admits increased pain but denies fever, chills, increased drainage or erythema. Objective Data Objective Data Vital Signs: Vital Signs Temp Pulse Resp BP 96.1 F L 92 18 107/65 04/18/23 00:24 04/18/23 00:24 04/18/23 00:24 04/18/23 00:24 Weight: 63.503 kg Body Mass Index (BMI) 24.7 Physical Exam Const alert, oriented x3 and no apparent distress General Appearance: cooperative and comfortable HEENT normocephalic and head/scalp atraumatic Resp normal respiratory effort Effort and Inspection: able to speak in complete sentences Cardio regular rate and regular rhythm Skin Wounds: wounds noted Wound Narrative: as in clinical panel Psych mental status grossly normal, thought process normal, cooperative and affect normal Debridement Note Debridement Note Wound debrided: left lateral abdomen Laterality: Left Wound Grade/Stage: Stage 3 Type of Debridement: Excisional debridement Anesthesia Used: 4% Lidocaine Solution and 5% Lidocaine Gel Depth: Down to and including healthy tissue and in the subcutaneous layer Percentage of wound debrided: 100 Instrument Used: 5mm curette Tissue Removed: Yellow slough, devitalized tissue Severity: Fat Layer Exposed Amount of bleeding with debridement: Mild Bleeding Controlled with: Compression and gauze Patient tolerated procedure: Patient tolerated procedure well Post-Debridement Measurements and Additional Note: Post-Debridement Measurements/Treatment WC - Nurse 2 - General Ulcer CM Notes Start: 04/30/23 10:06 Freq: Status: Active Protocol: Activity Type Activity Date Activity User E-sign Co-sign Detail Recorded Client Recorded Date Recorded By Document 04/30/23 10:06 Desktop 04/30/23 10:12 GM 04/30/23 10:06 Wound Center Nurse 2 1. L abd fold -Time 10:07 -Correct Patient Yes -Correct Side, Site, Position Yes -Correct Procedure Yes -Procedure Performed Yes -Type of Procedure Debridement -Clinical Debridement Subcutaneous -Tissue Removed Subcutaneous -Post Debridement (cm) - Length 2.0 -Post Debridement (cm) - Width 7.7 -Post Debridement (cm) - Depth 0.1 -Total Square (Post) (cm) 15.40 -Area of Debridement (cm) - Length 2.0 -Area of Debridement (cm) - Width 7.7 -Total Square (Area) (cm) 15.40 -Tunneling No -Undermining/Tunneling No -Circular Undermining No -Wound/Ulcer Outcome Not Healed -Ulcer Cleansing Rinsed/ Irrigated with Saline -Foul Odor after Cleansing No -Bioengineered Tissue No -Bleeding Controlled with Pressure -Treatment Response Procedure Tolerated Well -Debridement - Subq, 1st 20sq cm Yes Pain Scale: 0-10 Numeric Is Patient Pain Free? Yes - Nurse 3 - General Ulcer D/C NN Start: 04/30/23 10:06 Freq: Status: Active Protocol: Activity Type Activity Date Activity User E-sign Co-sign Detail Recorded Client Recorded Date Recorded By Document 04/30/23 10:25 Desktop 04/30/23 10:25 GM 04/30/23 10:25 Wound Care Center Nurse 3 1. L abd fold -Ulcer Cleansing Not Cleansed -Foul Odor after Cleansing No -Primary Dressing Applied Aquacel AG 4x4 -Aquacel AG 4x4 1 Pain Scale: 0-10 Numeric Is Patient Pain Free? Yes WC - Visit Discharge Discharge Condition Stable Ambulatory Status Wheelchair Transportation correction Medication Reconcilliation completed & Yes provided to patient/care provider Clinical Summary of Care Provided Yes Assessment/Plan Assessment/Plan (1) HTN (hypertension): CODE(S): I10 - Essential (primary) hypertension QUALIFIERS: Hypertension type: primary hypertension Qualified Code(s): I10 - Essential (primary) hypertension (2) Rheumatoid arthritis: CODE(S): M06.9 - Rheumatoid arthritis, unspecified QUALIFIERS: Rheumatoid arthritis location: multiple sites Rheumatoid factor presence: unspecified presence Qualified Code(s): M06.9 - Rheumatoid arthritis, unspecified (3) Polymyalgia rheumatica: CODE(S): M35.3 - Polymyalgia rheumatica (4) Insulin dependent diabetes mellitus: (5) Neuropathy due to type 2 diabetes mellitus: CODE(S): E11.40 - Type 2 diabetes mellitus with diabetic neuropathy, unspecified (6) Skin ulcer of abdomen with fat layer exposed: CODE(S): L98.492 - Non-pressure chronic ulcer of skin of other sites with fat layer exposed (7) Nonhealing nonsurgical wound with fat layer exposed: CODE(S): T14.8XXA - Other injury of unspecified body region, initial encounter (8) Type 2 diabetes mellitus without complications: CODE(S): E11.9 - Type 2 diabetes mellitus without complications QUALIFIERS: Diabetes mellitus middle or intermediate school principal insulin use: with fdc use Qualified Code(s): E11.9 - Type 2 diabetes mellitus without complications; Z79.4 - long term care phlebotomist (current) use of insulin PLAN: Plan Debridement performed today in clinic as annotated above. At home wound-care instructions: Wash ulcer with soap and water daily and pat dry. Apply Santyl nickel thickness to largest area of ulcer. Apply Aquacel Ag over Santyl and to other smaller ulcers bilaterally and cover with ABD. Keep dressing clean and dry. Apply A and D to helio-wound. Off-loading: The patient was instructed to avoid pressure and friction on the affected areas. Reposition every 2 hours at minimum. Avoid prolonged standing and/or dangling of legs. When seated, feet should be elevated at chest level. Frequent ambulation is encouraged. Diet: Patient encouraged to increase protein intake while taking caution to avoid high carbohydrate and/or sugar intake. Labs/cultures/imaging: Culture positive for Enterococcus Faecalis and completed treatment with Augmentin. Follow-up: Return in 2 weeks for wound care follow up. Return sooner or report to the emergency room should symptoms worsen, or new symptoms arise. Note: [employer] speech recognition electrical intern software was used to create portions of this document. Sound-alike and misspelled words, as well as other electrical intern errors may be contained in the documentation.
[2023-04-30 13:08] VITALS: BP 162/82; PULSE 84; RESP 16; TEMP 36.6; BMI 24.7
--- NOTE | 2023-05-03 13:59 | WC ---
allen from joselyn- nurse at [facility]. states pt's helio wound is ^ red, itchy, yeasty looking, along w/ some purulent drainage from wound (noted w/ olivia chg this am). asked if they could try nystatin cream to helio wound (pasteuriser operator at f also looked at this am and thought it looked yeasty). this nurse notified dr mendoza. ok'd topical nystatin. if area worsens ecf to call wound center back and we will get pt in for a visit this week instead of in 2 weeks.
[2023-05-14 09:22] VITALS: BP 172/79; PULSE 82; RESP 18; TEMP 36.6; BMI 24.7
--- NOTE | 2023-05-14 10:07 | PCM.WC.PN ---
History of Present Illness Date of Service: 05/14/23 Chief Complaint: abdominal wall ulcer History of Wound: Stacie is a pleasant 77 yo woman that presents to the wound healing center today for evaluation and treatment for a nonhealing ulcer of her abdominal wall that has been present for approximately 6 months. She is a poor historian due to dementia/cognitive impairment. She resides at an assisted living facility in [facility]. She reports that she has 3 sons. She is unable to tell us if she has had any abdominal surgeries or C-sections but the area where the ulcer is located has the appearance of scar tissue and is at the suprapubic area where an incision for a or panniculectomy could be located. It does have the appearance of an old incision site. No surgical history is available and she denies history. She does have diabetes and reports that she has been obese previously and weighed 260 lbs at one point but is now approx. 140 lb. It looks like she has been treated with Silvadene previously. She had been treated with Keflex. Subjective Subjective Stacie returns today for treatment of a nonhealing ulcer of her left abdominal skin fold. She has significant worsening in the periwound but the ulcer is smaller and showing more granulation. SNF has been dressing the ulcer with Santyl, Aquacel Ag and ABD daily per SEP. Patient is a poor historian due to dementia. She admits increased pain but denies fever, chills, increased drainage or erythema. Objective Data Objective Data Vital Signs: Vital Signs Temp Pulse Resp BP O2 Del Method 98 F 82 18 172/79 H Room Air 05/14/23 09:22 05/14/23 09:22 05/14/23 09:22 05/14/23 09:22 05/14/23 09:22 Oxygen Delivery Method Room Air Weight: 63.503 kg Body Mass Index (BMI) 24.7 Physical Exam Const alert, oriented x3 and no apparent distress General Appearance: cooperative and comfortable HEENT normocephalic and head/scalp atraumatic Resp normal respiratory effort Effort and Inspection: able to speak in complete sentences Cardio regular rate and regular rhythm Skin Wounds: wounds noted Wound Narrative: as in clinical panel Psych mental status grossly normal, thought process normal, cooperative and affect normal Debridement Note Debridement Note Wound debrided: left lateral abdomen Laterality: Left Wound Grade/Stage: Stage 3 Type of Debridement: Excisional debridement Anesthesia Used: 4% Lidocaine Solution and 5% Lidocaine Gel Depth: Down to and including healthy tissue and in the subcutaneous layer Percentage of wound debrided: 100 Instrument Used: 5mm curette Tissue Removed: Yellow slough, devitalized tissue Severity: Fat Layer Exposed Amount of bleeding with debridement: Mild Bleeding Controlled with: Compression and gauze Patient tolerated procedure: Patient tolerated procedure well Post-Debridement Measurements and Additional Note: Post-Debridement Measurements/Treatment - Nurse 1 - General Ulcer Assessment Start: 04/30/23 10:06 Freq: Status: Active Protocol: NeuropureT Activity Type Activity Date Activity User E-sign Co-sign Detail Recorded Client Recorded Date Recorded By Document 04/30/23 13:08 VA [id number] 04/30/23 13:16 MT Document 05/14/23 09:22 VA Desktop 05/14/23 09:34 MT 04/30/23 05/14/23 13:08 09:22 - Today's Visit Information Type of service Follow-up Visit Follow-up Visit (Physician/AGENCY CASHIER (Physician/AGENCY CASHIER ) ) Arrival Mode Wheelchair Wheelchair Accompanied by self Patient Identification Verified (Name & Yes Yes ) Safety Precautions Fall Prevention Fall Prevention Height and Weight Body Mass Index (BMI) 24.7 24.7 BMI Classification Normal Normal Vital Signs Temperature (97.8 F-99.1 F) 98 F 98 F Temperature Source Temporal Temporal Pulse Rate (60-100) 84 82 Pulse Location Monitor Monitor Respiratory Rate (12-18) 16 18 Respiratory rate source Monitor Observation Oxygen Delivery Method Room Air Room Air Blood Pressure (90/60-120/80) 162/82 H 172/79 H Blood Pressure Mean (mm Hg) 108 110 Source Monitor Monitor Position Sitting Supine Blood Pressure Location Left Arm Right Arm History Since Last Visit- (Skip if this is Patient's initial visit) Has dressing in place as prescribed Yes Yes Has compression in place as prescribed N/A N/A Has offloadiing in place as prescribed N/A N/A Experienced any changes in pain level or No No management Left Footwear Regular Shoe Regular Shoe Right Footwear Regular Shoe Regular Shoe Pain Scale: 0-10 Numeric Is Patient Pain Free? No No abd fold -Description Dull,Throbbing Dull,Throbbing -Duration (hours) Chronic -Pain Behavior Guarding Irritability -Pain Aggravating Factors Changing Changing Position, Position Exercise/ Activity, Debridement -Alleviating Factors/Interventions Medicate when Turning/ due,Turning/ Repositioning, Repositioning Will continue to monitor, Emotional Support WC - Nurse 1 - General Ulcer Measurement Start: 04/30/23 10:06 Freq: Status: Active Protocol: Activity Type Activity Date Activity User E-sign Co-sign Detail Recorded Client Recorded Date Recorded By Document 04/30/23 13:08 VA [id number] 04/30/23 13:16 MT Document 05/14/23 09:22 VA Desktop 05/14/23 09:34 MT 04/30/23 05/14/23 13:08 09:22 Wound Center Nurse 1 1. L abd fold -Combined with other wound No -Current Size (cm) - Length 8.5 1.5 -Current Size (cm) - Width 1.5 7.2 -Current Size (cm) - Depth 0.1 0.1 -Total Square Cm 12.75 10.80 -Photo Taken No -Tunneling No No -Undermining/Tunneling No No -Circular Undermining No No -Exudate Amt Medium Medium -Exudate Type Purulent Purulent -Wound Margin Fibrotic Scar, Thickened & Thickened Scar Rolled Under -Granulation Amt Medium (34-66%) Medium (34-66%) -Granulation Quality Pale,[place]aggoner Pale,[place]aggoner -Necrosis Amt Medium (34-66%) Medium (34-66%) -Necrotic Tissue Type Adherent Slough Adherent Slough -Texture (Lupis-wound Skin Appearance) Assessed, Assessed, Excoriation Induration,Rash -Moisture (Lupis-wound Skin Appearance) Assessed, Assessed, Maceration, Maceration Weeping -Color (Lupis-wound Skin Appearance) Assessed Assessed, Erythema -Temperature (Lupis-wound Skin No Abnormality No Abnormality Appearance) (Pt Warm) (Pt Warm) -Tenderness on Palpation (Lupis-wound No No Skin Appearance) -Ulcer Cleansing Soap and Water Wound Cleanser -Foul Odor after Cleansing No No -Anesthetic Used 5% Lidocaine 5% Lidocaine Gel Gel Lower Limb Edema Present NA NA PATRICIA - Nurse 2 - General Ulcer CM Notes Start: 04/30/23 10:06 Freq: Status: Active Protocol: Activity Type Activity Date Activity User E-sign Co-sign Detail Recorded Client Recorded Date Recorded By Document 04/30/23 10:06 Desktop 04/30/23 10:12 GM Document 05/14/23 09:42 Desktop 05/14/23 09:51 GM 04/30/23 05/14/23 10:06 09:42 Wound Center Nurse 2 1. L abd fold -Time 10:07 09:42 -Correct Patient Yes Yes -Correct Side, Site, Position Yes Yes -Correct Procedure Yes Yes -Procedure Performed Yes Yes -Type of Procedure Debridement Debridement -Clinical Debridement Subcutaneous Subcutaneous -Tissue Removed Subcutaneous Subcutaneous -Post Debridement (cm) - Length 2.0 1.5 -Post Debridement (cm) - Width 7.7 7.0 -Post Debridement (cm) - Depth 0.1 0.1 -Total Square (Post) (cm) 15.40 10.50 -Area of Debridement (cm) - Length 2.0 -Area of Debridement (cm) - Width 7.7 -Total Square (Area) (cm) 15.40 -Tunneling No -Undermining/Tunneling No -Circular Undermining No -Wound/Ulcer Outcome Not Healed Not Healed -Ulcer Cleansing Rinsed/ Rinsed/ Irrigated with Irrigated with Saline Saline -Foul Odor after Cleansing No No -Bioengineered Tissue No No -Bleeding Controlled with Pressure Pressure -Treatment Response Procedure Procedure Tolerated Well Tolerated Well -Debridement - Subq, 1st 20sq cm Yes Yes Pain Scale: 0-10 Numeric Is Patient Pain Free? Yes Yes - Nurse 3 - General Ulcer D/C NN Start: 04/30/23 10:06 Freq: Status: Active Protocol: Activity Type Activity Date Activity User E-sign Co-sign Detail Recorded Client Recorded Date Recorded By Document 04/30/23 10:25 Desktop 04/30/23 10:25 GM Document 05/14/23 10:00 Desktop 05/14/23 10:01 GM 04/30/23 05/14/23 10:25 10:00 Wound Care Center Nurse 3 1. L abd fold -Ulcer Cleansing Not Cleansed -Foul Odor after Cleansing No No -Negative Pressure Wound Therapy N/A -Primary Dressing Applied Aquacel AG 4x4 Aquacel AG 4x4 -Primary Dressing Covered/Secured with Dry Gauze, Secured with Tape -Aquacel AG 4x4 1 1 Pain Scale: 0-10 Numeric Is Patient Pain Free? Yes Yes Teaching: Wound Center wound description -Person Taught Patient -Teaching Method Discussion -Response to teaching Verbalize understanding, Reinforcement needed Dressing Your Wound -Person Taught Patient -Teaching Method Discussion -Response to teaching Verbalize understanding, Reinforcement needed WC - Visit Discharge Discharge Condition Stable Stable Ambulatory Status Wheelchair Wheelchair Transportation long-term long-term transportati Medication Reconcilliation completed & Yes Yes provided to patient/care provider Clinical Summary of Care Provided Yes Yes Assessment/Plan Assessment/Plan (1) HTN (hypertension): CODE(S): I10 - Essential (primary) hypertension QUALIFIERS: Hypertension type: primary hypertension Qualified Code(s): I10 - Essential (primary) hypertension (2) Rheumatoid arthritis: CODE(S): M06.9 - Rheumatoid arthritis, unspecified QUALIFIERS: Rheumatoid arthritis location: multiple sites Rheumatoid factor presence: unspecified presence Qualified Code(s): M06.9 - Rheumatoid arthritis, unspecified (3) Polymyalgia rheumatica: CODE(S): M35.3 - Polymyalgia rheumatica (4) Insulin dependent diabetes mellitus: (5) Neuropathy due to type 2 diabetes mellitus: CODE(S): E11.40 - Type 2 diabetes mellitus with diabetic neuropathy, unspecified (6) Skin ulcer of abdomen with fat layer exposed: CODE(S): L98.492 - Non-pressure chronic ulcer of skin of other sites with fat layer exposed (7) Nonhealing nonsurgical wound with fat layer exposed: CODE(S): T14.8XXA - Other injury of unspecified body region, initial encounter (8) Type 2 diabetes mellitus without complications: CODE(S): E11.9 - Type 2 diabetes mellitus without complications QUALIFIERS: Diabetes mellitus ad terminal makeup operator insulin use: with half-way use Qualified Code(s): E11.9 - Type 2 diabetes mellitus without complications; Z79.4 - marine oil terminal superintendent (current) use of insulin PLAN: Plan Debridement performed today in clinic as annotated above. At home wound-care instructions: Wash ulcer with soap and water daily and pat dry. Apply Santyl nickel thickness to largest area of ulcer. Apply Aquacel Ag over Santyl and to periwound bilaterally and cover with ABD. Keep dressing clean and dry. Diflucan prescribed for yeast infection surrounding wound. Off-loading: The patient was instructed to avoid pressure and friction on the affected areas. Reposition every 2 hours at minimum. Avoid prolonged standing and/or dangling of legs. When seated, feet should be elevated at chest level. Frequent ambulation is encouraged. Diet: Patient encouraged to increase protein intake while taking caution to avoid high carbohydrate and/or sugar intake. Labs/cultures/imaging: Culture positive for Enterococcus Faecalis and completed treatment with Augmentin. Follow-up: Return in 2 weeks for wound care follow up. Return sooner or report to the emergency room should symptoms worsen, or new symptoms arise. Note: [employer] speech recognition lathe set up person software was used to create portions of this document. Sound-alike and misspelled words, as well as other lathe set up person errors may be contained in the documentation.
== END 2023-05-18 23:59 | disposition home or self-care (01) ==
LOC: WC 09:15
PROVIDERS: PCP Internal Medicine; Referring Provider Internal Medicine; Visit Provider Family Medicine
DX: E11.622 Type 2 diabetes mellitus with other skin ulcer (principal); L98.492 Non-pressure chronic ulcer of skin of other sites with fat layer exposed; M35.3 Polymyalgia rheumatica; M06.9 Rheumatoid arthritis, unspecified; F03.90 Unspecified dementia, unspecified severity, without behavioral disturbance, psychotic disturbance, mood disturbance, and anxiety; E11.40 Type 2 diabetes mellitus with diabetic neuropathy, unspecified; Z79.4 Long term (current) use of insulin; R41.89 Other symptoms and signs involving cognitive functions and awareness; I10 Essential (primary) hypertension
CPT/HCPCS: 11042

== ENCOUNTER 2023-05-28 09:28 | Outpatient (RCR) | payer MEDICARE, MEDICAID, SELFPAY ==
[2023-05-19 00:17] VITALS: BP 172/79; PULSE 82; RESP 18; TEMP 36.6; BMI 24.7
[2023-05-28 09:34] VITALS: BP 143/66; PULSE 91; RESP 18; TEMP 35.5; BMI 24.7
--- NOTE | 2023-05-28 11:13 | PCM.WC.PN ---
History of Present Illness Date of Service: 05/28/23 Chief Complaint: abdominal wall ulcer History of Wound: Stacie is a pleasant 77 yo woman that presents to the wound healing center today for evaluation and treatment for a nonhealing ulcer of her abdominal wall that has been present for approximately 6 months. She is a poor historian due to dementia/cognitive impairment. She resides at an assisted living facility in [facility]. She reports that she has 3 sons. She is unable to tell us if she has had any abdominal surgeries or C-sections but the area where the ulcer is located has the appearance of scar tissue and is at the suprapubic area where an incision for a or panniculectomy could be located. It does have the appearance of an old incision site. No surgical history is available and she denies history. She does have diabetes and reports that she has been obese previously and weighed 260 lbs at one point but is now approx. 140 lb. It looks like she has been treated with Silvadene previously. She had been treated with Keflex. Subjective Subjective Stacie returns today for treatment of a nonhealing ulcer of her left abdominal skin fold. She has significant worsening in the periwound but the ulcer is smaller and showing more granulation. SNF has been dressing the ulcer with Santyl, Aquacel Ag and ABD daily per SEP. Patient is a poor historian due to dementia. She admits increased pain but denies fever, chills, increased drainage or erythema. Objective Data Objective Data Vital Signs: Vital Signs Temp Pulse Resp BP 96 F L 91 18 143/66 H 05/28/23 09:34 05/28/23 09:34 05/28/23 09:34 05/28/23 09:34 Weight: 63.503 kg Body Mass Index (BMI) 24.7 Physical Exam Const alert, oriented x3 and no apparent distress General Appearance: cooperative and comfortable HEENT normocephalic and head/scalp atraumatic Resp normal respiratory effort Effort and Inspection: able to speak in complete sentences Cardio regular rate and regular rhythm Skin Wounds: wounds noted Wound Narrative: as in clinical panel Psych mental status grossly normal, thought process normal, cooperative and affect normal Debridement Note Debridement Note Wound debrided: left lateral abdomen Laterality: Left Wound Grade/Stage: Stage 3 Type of Debridement: Excisional debridement Anesthesia Used: 4% Lidocaine Solution and 5% Lidocaine Gel Depth: Down to and including healthy tissue and in the subcutaneous layer Percentage of wound debrided: 100 Instrument Used: 5mm curette Tissue Removed: Yellow slough, devitalized tissue Severity: Fat Layer Exposed Amount of bleeding with debridement: Mild Bleeding Controlled with: Compression and gauze Patient tolerated procedure: Patient tolerated procedure well Post-Debridement Measurements and Additional Note: Post-Debridement Measurements/Treatment - Nurse 1 - General Ulcer Assessment Start: 05/28/23 09:34 Freq: Status: Active Protocol: JOSUE Activity Type Activity Date Activity User E-sign Co-sign Detail Recorded Client Recorded Date Recorded By Document 05/28/23 09:34 CO [place] 05/28/23 09:39 CO 05/28/23 09:34 WC - Today's Visit Information Type of service Follow-up Visit (Physician/TELEPHONE SERVICES SALES REPRESENTATIVE ) Arrival Mode Ambulatory Transfer Assistance None Patient Identification Verified (Name & Yes ) Patient Requires Transmission-Based No Precautions Height and Weight Body Mass Index (BMI) 24.7 BMI Classification Normal Vital Signs Temperature (97.8 F-99.1 F) 96 F L Temperature Source Temporal Pulse Rate (60-100) 91 Pulse Location Monitor Respiratory Rate (12-18) 18 Respiratory rate source Observation Blood Pressure (90/60-120/80) 143/66 H Blood Pressure Mean (mm Hg) 91 Source Monitor Position Semi-Fowlers Blood Pressure Location Left Arm History Since Last Visit- (Skip if this is Patient's initial visit) Have you changed medications since your No last visit? Any new allergies or adverse reactions No Had a fall/change in ADL's that may No increase risk of falls Signs or symptoms of abuse and/or No neglect since last visit Have you been in the hospital since your No last visit? Has dressing in place as prescribed Yes Has compression in place as prescribed No Has offloadiing in place as prescribed No Experienced any changes in pain level or No management Pain Scale: 0-10 Numeric Is Patient Pain Free? Yes - Nurse 1 - General Ulcer Measurement Start: 05/28/23 09:34 Freq: Status: Active Protocol: Activity Type Activity Date Activity User E-sign Co-sign Detail Recorded Client Recorded Date Recorded By Document 05/28/23 09:34 CO [place] 05/28/23 09:39 CO 05/28/23 09:34 Wound Center Nurse 1 1. L abd fold -Combined with other wound No -Current Size (cm) - Length 2 -Current Size (cm) - Width 7.6 -Current Size (cm) - Depth 0.2 -Total Square Cm 15.2 -Tunneling No -Undermining/Tunneling No -Circular Undermining No -Exudate Amt Large -Exudate Type Serosanguineous -Wound Margin Distinct, Outline Attached -Granulation Amt Medium (34-66%) -Granulation Quality [place] -Slough/Fibrin Yes -Necrosis Amt Large (67-100%) -Necrotic Tissue Type Adherent Slough -Structure Exposed N/A -Texture (Lupis-wound Skin Appearance) Assessed -Moisture (Lupis-wound Skin Appearance) Assessed -Color (Lupis-wound Skin Appearance) Assessed -Temperature (Lupis-wound Skin No Abnormality Appearance) (Pt Warm) -Tenderness on Palpation (Lupis-wound No Skin Appearance) -Ulcer Cleansing Wound Cleanser -Foul Odor after Cleansing No -Anesthetic Used 4% Lidocaine Solution WC - Nurse 2 - General Ulcer CM Notes Start: 05/28/23 09:34 Freq: Status: Active Protocol: Activity Type Activity Date Activity User E-sign Co-sign Detail Recorded Client Recorded Date Recorded By Document 05/28/23 09:52 Desktop 05/28/23 10:01 05/28/23 09:52 Wound Center Nurse 2 -Time 09:52 -Correct Patient Yes -Correct Side, Site, Position Yes -Correct Procedure Yes -Procedure Performed Yes -Type of Procedure Debridement -Clinical Debridement Subcutaneous -Tissue Removed Subcutaneous -Post Debridement (cm) - Length 1.4 -Post Debridement (cm) - Width 7.2 -Post Debridement (cm) - Depth 0.1 -Total Square (Post) (cm) 10.08 -Area of Debridement (cm) - Length 1.4 -Area of Debridement (cm) - Width 7.2 -Total Square (Area) (cm) 10.08 -Tunneling No -Undermining/Tunneling No -Circular Undermining No -Wound/Ulcer Outcome Not Healed -Ulcer Cleansing Rinsed/ Irrigated with Saline -Foul Odor after Cleansing No -Bioengineered Tissue No -Bleeding Controlled with Pressure -Treatment Response Procedure Tolerated Well -Assistive Device(s) Wheelchair -Debridement - Subq, 1st 20sq cm Yes Pain Scale: 0-10 Numeric Is Patient Pain Free? Yes WC - Nurse 3 - General Ulcer D/C NN Start: 05/28/23 09:34 Freq: Status: Active Protocol: Activity Type Activity Date Activity User E-sign Co-sign Detail Recorded Client Recorded Date Recorded By Document 05/28/23 10:18 RB Desktop 05/28/23 10:19 RB 05/28/23 10:18 Wound Care Center Nurse 3 1. L abd fold -Ulcer Cleansing Rinsed/ Irrigated with Saline -Primary Dressing Applied Aquacel AG 4x4 -Other Dressing abd pads and silicone tape -Primary Dressing Covered/Secured with Dry Gauze, Secured with Tape -Aquacel AG 4x4 1 Treatment Response Procedure Tolerated Well Pain Scale: 0-10 Numeric Is Patient Pain Free? Yes WC - Visit Discharge Discharge Condition Stable Ambulatory Status Wheelchair Transportation Private Auto Medication Reconcilliation completed & No provided to patient/care provider Clinical Summary of Care Provided Yes Assessment/Plan Assessment/Plan (1) HTN (hypertension): CODE(S): I10 - Essential (primary) hypertension QUALIFIERS: Hypertension type: primary hypertension Qualified Code(s): I10 - Essential (primary) hypertension (2) Rheumatoid arthritis: CODE(S): M06.9 - Rheumatoid arthritis, unspecified QUALIFIERS: Rheumatoid arthritis location: multiple sites Rheumatoid factor presence: unspecified presence Qualified Code(s): M06.9 - Rheumatoid arthritis, unspecified (3) Polymyalgia rheumatica: CODE(S): M35.3 - Polymyalgia rheumatica (4) Insulin dependent diabetes mellitus: (5) Neuropathy due to type 2 diabetes mellitus: CODE(S): E11.40 - Type 2 diabetes mellitus with diabetic neuropathy, unspecified (6) Skin ulcer of abdomen with fat layer exposed: CODE(S): L98.492 - Non-pressure chronic ulcer of skin of other sites with fat layer exposed (7) Nonhealing nonsurgical wound with fat layer exposed: CODE(S): T14.8XXA - Other injury of unspecified body region, initial encounter (8) Type 2 diabetes mellitus without complications: CODE(S): E11.9 - Type 2 diabetes mellitus without complications QUALIFIERS: Diabetes mellitus terminal operations manager insulin use: with fci use Qualified Code(s): E11.9 - Type 2 diabetes mellitus without complications; Z79.4 - buttermaker (current) use of insulin PLAN: Plan Debridement performed today in clinic as annotated above. At home wound-care instructions: Wash ulcer with soap and water daily and pat dry. Apply Aquacel Ag to wound bed and cover with ABD. Keep dressing clean and dry. Diflucan prescribed for yeast infection surrounding wound. Apply clotrimazole-betamethasone to periwound. Use silicone tape to secure dressings. Off-loading: The patient was instructed to avoid pressure and friction on the affected areas. Reposition every 2 hours at minimum. Avoid prolonged standing and/or dangling of legs. When seated, feet should be elevated at chest level. Frequent ambulation is encouraged. Diet: Patient encouraged to increase protein intake while taking caution to avoid high carbohydrate and/or sugar intake. Labs/cultures/imaging: Culture positive for Enterococcus Faecalis and completed treatment with Augmentin. Follow-up: Return in 3 weeks for wound care follow up. Return sooner or report to the emergency room should symptoms worsen, or new symptoms arise. Note: [employer] speech recognition process cheese cooker software was used to create portions of this document. Sound-alike and misspelled words, as well as other process cheese cooker errors may be contained in the documentation.
== END 2023-06-17 23:59 | disposition home or self-care (01) ==
LOC: WC 09:28
PROVIDERS: PCP Internal Medicine; Referring Provider Internal Medicine; Visit Provider Family Medicine
DX: E11.622 Type 2 diabetes mellitus with other skin ulcer (principal); L98.492 Non-pressure chronic ulcer of skin of other sites with fat layer exposed; M06.9 Rheumatoid arthritis, unspecified; F03.90 Unspecified dementia, unspecified severity, without behavioral disturbance, psychotic disturbance, mood disturbance, and anxiety; I10 Essential (primary) hypertension; M35.3 Polymyalgia rheumatica; E11.40 Type 2 diabetes mellitus with diabetic neuropathy, unspecified; Z79.4 Long term (current) use of insulin
CPT/HCPCS: 11042

== ENCOUNTER 2023-07-16 09:00 | Outpatient (RCR) | payer MEDICARE, MEDICAID, SELFPAY ==
[2023-06-18 00:11] VITALS: BP 143/66; PULSE 91; RESP 18; TEMP 35.5; BMI 24.7
[2023-06-18 09:21] VITALS: BP 150/57; PULSE 82; RESP 18; TEMP 36.4; BMI 24.7
--- NOTE | 2023-06-18 13:19 | PCM.WC.PN ---
History of Present Illness Date of Service: 06/18/23 Chief Complaint: abdominal wall ulcer History of Wound: Stacie is a pleasant 77 yo woman that presents to the wound healing center today for evaluation and treatment for a nonhealing ulcer of her abdominal wall that has been present for approximately 6 months. She is a poor historian due to dementia/cognitive impairment. She resides at an assisted living facility in [facility]. She reports that she has 3 sons. She is unable to tell us if she has had any abdominal surgeries or C-sections but the area where the ulcer is located has the appearance of scar tissue and is at the suprapubic area where an incision for a or panniculectomy could be located. It does have the appearance of an old incision site. No surgical history is available and she denies history. She does have diabetes and reports that she has been obese previously and weighed 260 lbs at one point but is now approx. 140 lb. It looks like she has been treated with Silvadene previously. She had been treated with Keflex. Subjective Subjective Stacie returns today for treatment of a nonhealing ulcer of her left abdominal skin fold. She has significant improvement in the periwound and the ulcer is smaller and showing more granulation. SNF has been dressing the ulcer with Aquacel Ag and ABD daily per SEP and applying clotrimazole to periwound. Medipore tape was found on lower abdomen and this may be the cause of her irritation. Patient is a poor historian due to dementia. She admits increased pain but denies fever, chills, increased drainage or erythema. Objective Data Objective Data Vital Signs: Vital Signs Temp Pulse Resp BP 97.5 F L 82 18 150/57 H 06/18/23 09:21 06/18/23 09:21 06/18/23 09:21 06/18/23 09:21 Weight: 63.503 kg Body Mass Index (BMI) 24.7 Physical Exam Const alert, oriented x3 and no apparent distress General Appearance: cooperative and comfortable HEENT normocephalic and head/scalp atraumatic Resp normal respiratory effort Effort and Inspection: able to speak in complete sentences Cardio regular rate and regular rhythm Skin General Skin Exam: erythema and dermatitis Wounds: wounds noted Wound Narrative: as in clinical panel Psych mental status grossly normal, thought process normal, cooperative and affect normal Debridement Note Debridement Note Wound debrided: left lateral abdomen Laterality: Left Wound Grade/Stage: Stage 3 Type of Debridement: Excisional debridement Anesthesia Used: 4% Lidocaine Solution and 5% Lidocaine Gel Depth: Down to and including healthy tissue and in the subcutaneous layer Percentage of wound debrided: 100 Instrument Used: 5mm curette Tissue Removed: Yellow slough, devitalized tissue Severity: Fat Layer Exposed Amount of bleeding with debridement: Mild Bleeding Controlled with: Compression and gauze Patient tolerated procedure: Patient tolerated procedure well Post-Debridement Measurements and Additional Note: Post-Debridement Measurements/Treatment - Nurse 1 - General Ulcer Assessment Start: 06/18/23 09:21 Freq: Status: Active Protocol: JOSUE Activity Type Activity Date Activity User E-sign Co-sign Detail Recorded Client Recorded Date Recorded By Document 06/18/23 09:21 PL Tablet 06/18/23 09:23 PL 06/18/23 09:21 WC - Today's Visit Information Type of service Follow-up Visit (Physician/SLASH TRIMMER ) Arrival Mode Wheelchair Transfer Assistance Manual Patient Identification Verified (Name & Yes ) Patient Requires Transmission-Based No Precautions Safety Precautions NA Height and Weight Body Mass Index (BMI) 24.7 BMI Classification Normal Vital Signs Temperature (97.8 F-99.1 F) 97.5 F L Temperature Source Temporal Pulse Rate (60-100) 82 Respiratory Rate (12-18) 18 Blood Pressure (90/60-120/80) 150/57 H Blood Pressure Mean (mm Hg) 88 History Since Last Visit- (Skip if this is Patient's initial visit) Have you changed medications since your No last visit? Any new allergies or adverse reactions No Had a fall/change in ADL's that may No increase risk of falls Signs or symptoms of abuse and/or No neglect since last visit Have you been in the hospital since your No last visit? Has dressing in place as prescribed Yes Has compression in place as prescribed N/A Has offloadiing in place as prescribed N/A Experienced any changes in pain level or No management Pain Scale: 0-10 Numeric Is Patient Pain Free? Yes PATRICIA Garza Nurse 2 - General Ulcer CM Notes Start: 06/18/23 09:21 Freq: Status: Active Protocol: Activity Type Activity Date Activity User E-sign Co-sign Detail Recorded Client Recorded Date Recorded By Document 06/18/23 09:57 GM Desktop 1201/23 10:15 06/18/23 09:57 Wound Center Nurse 2 1. L abd fold -Time 09:57 -Correct Patient Yes -Correct Side, Site, Position Yes -Correct Procedure Yes -Procedure Performed Yes -Type of Procedure Debridement -Clinical Debridement Subcutaneous -Tissue Removed Subcutaneous -Post Debridement (cm) - Length 1.7 -Post Debridement (cm) - Width 6.8 -Post Debridement (cm) - Depth 0.1 -Total Square (Post) (cm) 11.56 -Area of Debridement (cm) - Length 1.7 -Area of Debridement (cm) - Width 6.8 -Total Square (Area) (cm) 11.56 -Tunneling No -Undermining/Tunneling No -Wound/Ulcer Outcome Not Healed -Ulcer Cleansing Rinsed/ Irrigated with Saline -Foul Odor after Cleansing No -Bioengineered Tissue No -Bleeding Controlled with Pressure -Treatment Response Procedure Tolerated Well -Debridement - Subq, 1st 20sq cm Yes Pain Scale: 0-10 Numeric Is Patient Pain Free? Yes WC - Nurse 3 - General Ulcer D/C NN Start: 06/18/23 09:21 Freq: Status: Active Protocol: Activity Type Activity Date Activity User E-sign Co-sign Detail Recorded Client Recorded Date Recorded By Document 06/18/23 10:18 [facility] 06/18/23 10:19 06/18/23 10:18 Wound Care Center Nurse 3 1. L abd fold -Ulcer Cleansing Not Cleansed -Foul Odor after Cleansing No -Negative Pressure Wound Therapy N/A -Primary Dressing Applied Aquacel AG 4x4 -Primary Dressing Covered/Secured with Dry Gauze, Secured with Tape -Aquacel AG 4x4 1 Pain Scale: 0-10 Numeric Is Patient Pain Free? Yes Teaching: Wound Center wound description -Person Taught Patient -Teaching Method Discussion -Response to teaching Verbalize understanding, Reinforcement needed Dressing Your Wound -Person Taught Patient -Teaching Method Discussion, Demonstration -Response to teaching Verbalize understanding WC - Visit Discharge Discharge Condition Stable Transportation residential transport Medication Reconcilliation completed & Yes provided to patient/care provider Clinical Summary of Care Provided Yes Assessment/Plan Assessment/Plan (1) HTN (hypertension): CODE(S): I10 - Essential (primary) hypertension QUALIFIERS: Hypertension type: primary hypertension Qualified Code(s): I10 - Essential (primary) hypertension (2) Rheumatoid arthritis: CODE(S): M06.9 - Rheumatoid arthritis, unspecified QUALIFIERS: Rheumatoid arthritis location: multiple sites Rheumatoid factor presence: unspecified presence Qualified Code(s): M06.9 - Rheumatoid arthritis, unspecified (3) Polymyalgia rheumatica: CODE(S): M35.3 - Polymyalgia rheumatica (4) Insulin dependent diabetes mellitus: (5) Neuropathy due to type 2 diabetes mellitus: CODE(S): E11.40 - Type 2 diabetes mellitus with diabetic neuropathy, unspecified (6) Skin ulcer of abdomen with fat layer exposed: CODE(S): L98.492 - Non-pressure chronic ulcer of skin of other sites with fat layer exposed (7) Nonhealing nonsurgical wound with fat layer exposed: CODE(S): T14.8XXA - Other injury of unspecified body region, initial encounter (8) Type 2 diabetes mellitus without complications: CODE(S): E11.9 - Type 2 diabetes mellitus without complications QUALIFIERS: Diabetes mellitus combined rail operator insulin use: with intermediate use Qualified Code(s): E11.9 - Type 2 diabetes mellitus without complications; Z79.4 - process control programmer (current) use of insulin PLAN: Plan Debridement performed today in clinic as annotated above. At home wound-care instructions: Wash ulcer with soap and water daily and pat dry. Apply Aquacel Ag to wound bed and cover with ABD. Keep dressing clean and dry. Apply clotrimazole-betamethasone to periwound. Use silicone tape to secure dressings. Off-loading: The patient was instructed to avoid pressure and friction on the affected areas. Reposition every 2 hours at minimum. Avoid prolonged standing and/or dangling of legs. When seated, feet should be elevated at chest level. Frequent ambulation is encouraged. Diet: Patient encouraged to increase protein intake while taking caution to avoid high carbohydrate and/or sugar intake. Labs/cultures/imaging: Culture positive for Enterococcus Faecalis and completed treatment with Augmentin. Follow-up: Return in 2 weeks for wound care follow up. Return sooner or report to the emergency room should symptoms worsen, or new symptoms arise. Note: [employer] speech recognition silo filler software was used to create portions of this document. Sound-alike and misspelled words, as well as other silo filler errors may be contained in the documentation.
[2023-07-02 09:07] VITALS: BP 150/85; PULSE 99; RESP 18; TEMP 35.5; BMI 24.7
--- NOTE | 2023-07-02 13:46 | PN.PCM_ITS ---
History of Present Illness Date of Service: 07/02/23 Chief Complaint: abdominal wall ulcer History of Wound: Stacie is a pleasant 77 yo woman that presents to the wound healing center today for evaluation and treatment for a nonhealing ulcer of her abdominal wall that has been present for approximately 6 months. She is a poor historian due to dementia/cognitive impairment. She resides at an assisted living facility in [facility]. She reports that she has 3 sons. She is unable to tell us if she has had any abdominal surgeries or C-sections but the area where the ulcer is located has the appearance of scar tissue and is at the suprapubic area where an incision for a or panniculectomy could be located. It does have the appearance of an old incision site. No surgical history is available and she denies history. She does have diabetes and reports that she has been obese previously and weighed 260 lbs at one point but is now approx. 140 lb. It looks like she has been treated with Silvadene previously. She had been treated with Keflex. Subjective Subjective Stacie returns today for treatment of a nonhealing ulcer of her left abdominal skin fold. There has been minimal change to the ulcer but the periwound has been worse. SNF has been dressing the ulcer with Aquacel Ag and ABD daily per SEP and applying clotrimazole to periwound. Patient is a poor historian due to dementia. She admits increased pain but denies fever, chills, increased drainage or erythema. Objective Data Objective Data Vital Signs: Vital Signs Temp Pulse Resp BP 96 F L 99 18 150/85 H 07/02/23 09:07 07/02/23 09:07 07/02/23 09:07 07/02/23 09:07 Weight: 63.503 kg Body Mass Index (BMI) 24.7 Physical Exam Const alert, oriented x3 and no apparent distress General Appearance: cooperative and comfortable HEENT normocephalic and head/scalp atraumatic Resp normal respiratory effort Effort and Inspection: able to speak in complete sentences Cardio regular rate and regular rhythm Skin General Skin Exam: erythema and dermatitis Wounds: wounds noted Wound Narrative: as in clinical panel Psych mental status grossly normal, thought process normal, cooperative and affect normal Debridement Note Debridement Note Wound debrided: left lateral abdomen Laterality: Left Wound Grade/Stage: Stage 3 Type of Debridement: Excisional debridement Anesthesia Used: 4% Lidocaine Solution and 5% Lidocaine Gel Depth: Down to and including healthy tissue and in the subcutaneous layer Percentage of wound debrided: 100 Instrument Used: 5mm curette Tissue Removed: Yellow slough, devitalized tissue Severity: Fat Layer Exposed Amount of bleeding with debridement: Mild Bleeding Controlled with: Compression and gauze Patient tolerated procedure: Patient tolerated procedure well Post-Debridement Measurements and Additional Note: Post-Debridement Measurements/Treatment WC - Nurse 1 - General Ulcer Assessment Start: 06/18/23 09:21 Freq: Status: Active Protocol: [email or web address].[email or web address] Activity Type Activity Date Activity User E-sign Co-sign Detail Recorded Client Recorded Date Recorded By Document 06/18/23 09:21 PL Tablet 06/18/23 09:23 PL Document 07/02/23 09:07 RB Desktop 07/02/23 09:09 RB 06/18/23 07/02/23 09:21 09:07 - Today's Visit Information Type of service Follow-up Visit Follow-up Visit (Physician/PUMP STITCHER (Physician/PUMP STITCHER ) ) Arrival Mode Wheelchair Wheelchair Transfer Assistance Manual Manual Patient Identification Verified (Name & Yes Yes ) Patient Requires Transmission-Based No No Precautions Safety Precautions NA Height and Weight Body Mass Index (BMI) 24.7 24.7 BMI Classification Normal Normal Vital Signs Temperature (97.8 F-99.1 F) 97.5 F L 96 F L Temperature Source Temporal Temporal Pulse Rate (60-100) 82 99 Pulse Location Monitor Respiratory Rate (12-18) 18 18 Respiratory rate source Observation Blood Pressure (90/60-120/80) 150/57 H 150/85 H Blood Pressure Mean (mm Hg) 88 106 Source Monitor Position Semi-Fowlers Blood Pressure Location Left Arm History Since Last Visit- (Skip if this is Patient's initial visit) Have you changed medications since your No No last visit? Any new allergies or adverse reactions No No Had a fall/change in ADL's that may No No increase risk of falls Signs or symptoms of abuse and/or No No neglect since last visit Have you been in the hospital since your No No last visit? Has dressing in place as prescribed Yes Yes Has compression in place as prescribed N/A No Has offloadiing in place as prescribed N/A No Experienced any changes in pain level or No No management Pain Scale: 0-10 Numeric Is Patient Pain Free? Yes Yes WC - Nurse 1 - General Ulcer Measurement Start: 06/18/23 09:21 Freq: Status: Active Protocol: Activity Type Activity Date Activity User E-sign Co-sign Detail Recorded Client Recorded Date Recorded By Document 07/02/23 09:07 RB Desktop 07/02/23 09:09 RB 07/02/23 09:07 Wound Center Nurse 1 1. L abd fold -Combined with other wound No -Current Size (cm) - Length 1.5 -Current Size (cm) - Width 7.5 -Current Size (cm) - Depth 0.1 -Total Square Cm 11.25 -Tunneling No -Undermining/Tunneling No -Circular Undermining No -Exudate Amt Large -Exudate Type Serosanguineous -Wound Margin Thickened & Rolled Under -Granulation Amt Large (67-100%) -Granulation Quality [place] -Slough/Fibrin Yes -Necrosis Amt Medium (34-66%) -Necrotic Tissue Type Adherent Slough -Structure Exposed N/A -Texture (Lupis-wound Skin Appearance) Assessed -Moisture (Lupis-wound Skin Appearance) Assessed -Color (Lupis-wound Skin Appearance) Erythema -Temperature (Lupis-wound Skin No Abnormality Appearance) (Pt Warm) -Tenderness on Palpation (Lupis-wound No Skin Appearance) -Ulcer Cleansing Wound Cleanser -Foul Odor after Cleansing No -Anesthetic Used 4% Lidocaine Solution - Nurse 2 - General Ulcer CM Notes Start: 06/18/23 09:21 Freq: Status: Active Protocol: Activity Type Activity Date Activity User E-sign Co-sign Detail Recorded Client Recorded Date Recorded By Document 06/18/23 09:57 GM Desktop 06/18/23 10:15 GM Document 07/02/23 09:43 MW Desktop 07/02/23 09:51 MW 06/18/23 07/02/23 09:57 09:43 Wound Center Nurse 2 1. L abd fold -Time 09:57 09:43 -Correct Patient Yes Yes -Correct Side, Site, Position Yes Yes -Correct Procedure Yes Yes -Procedure Performed Yes Yes -Type of Procedure Debridement Debridement -Clinical Debridement Subcutaneous Subcutaneous -Tissue Removed Subcutaneous Subcutaneous -Post Debridement (cm) - Length 1.7 8.0 -Post Debridement (cm) - Width 6.8 1.5 -Post Debridement (cm) - Depth 0.1 0.1 -Total Square (Post) (cm) 11.56 12.00 -Area of Debridement (cm) - Length 1.7 8.0 -Area of Debridement (cm) - Width 6.8 1.5 -Total Square (Area) (cm) 11.56 12.00 -Tunneling No No -Undermining/Tunneling No No -Circular Undermining No -Wound/Ulcer Outcome Not Healed Not Healed -Ulcer Cleansing Rinsed/ Rinsed/ Irrigated with Irrigated with Saline Saline -Foul Odor after Cleansing No No -Bioengineered Tissue No No -Bleeding Controlled with Pressure Pressure -Treatment Response Procedure Procedure Tolerated Well Tolerated Well -Offloading No -Debridement - Subq, 1st 20sq cm Yes Yes Pain Scale: 0-10 Numeric Is Patient Pain Free? Yes Yes - Nurse 3 - General Ulcer D/C NN Start: 06/18/23 09:21 Freq: Status: Active Protocol: Activity Type Activity Date Activity User E-sign Co-sign Detail Recorded Client Recorded Date Recorded By Document 06/18/23 10:18 [employer] 06/18/23 10:19 [employer] Document 07/02/23 10:[address] [facility] Desktop 07/02/23 10:[address] [facility] 06/18/23 07/02/23 10:18 10:02 Wound Care Center Nurse 3 1. L abd fold -Ulcer Cleansing Not Cleansed Rinsed/ Irrigated with Saline -Foul Odor after Cleansing No No -Negative Pressure Wound Therapy N/A -Primary Dressing Applied Aquacel AG 4x4 Aquacel AG 4x4 -Other Dressing abd, silicone tape -Primary Dressing Covered/Secured with Dry Gauze, Secured with Tape -Aquacel AG 4x4 1 1 Treatment Response Procedure Tolerated Well Pain Scale: 0-10 Numeric Is Patient Pain Free? Yes Yes Teaching: Wound Center wound description -Person Taught Patient -Teaching Method Discussion -Response to teaching Verbalize understanding, Reinforcement needed Dressing Your Wound -Person Taught Patient -Teaching Method Discussion, Demonstration -Response to teaching Verbalize understanding WC - Visit Discharge Discharge Condition Stable Stable Transportation intermediate ecf transport Medication Reconcilliation completed & Yes provided to patient/care provider Clinical Summary of Care Provided Yes Facility Type [facility] Assessment/Plan Assessment/Plan (1) HTN (hypertension): CODE(S): I10 - Essential (primary) hypertension QUALIFIERS: Hypertension type: primary hypertension Qualified Code(s): I10 - Essential (primary) hypertension (2) Rheumatoid arthritis: CODE(S): M06.9 - Rheumatoid arthritis, unspecified QUALIFIERS: Rheumatoid arthritis location: multiple sites Rheumatoid factor presence: unspecified presence Qualified Code(s): M06.9 - Rheumatoid arthritis, unspecified (3) Polymyalgia rheumatica: CODE(S): M35.3 - Polymyalgia rheumatica (4) Insulin dependent diabetes mellitus: (5) Neuropathy due to type 2 diabetes mellitus: CODE(S): E11.40 - Type 2 diabetes mellitus with diabetic neuropathy, unspecified (6) Skin ulcer of abdomen with fat layer exposed: CODE(S): L98.492 - Non-pressure chronic ulcer of skin of other sites with fat layer exposed (7) Nonhealing nonsurgical wound with fat layer exposed: CODE(S): T14.8XXA - Other injury of unspecified body region, initial encounter (8) Type 2 diabetes mellitus without complications: CODE(S): E11.9 - Type 2 diabetes mellitus without complications QUALIFIERS: Diabetes mellitus terminal superintendent insulin use: with terminal superintendent use Qualified Code(s): E11.9 - Type 2 diabetes mellitus without complications; Z79.4 - retirement (current) use of insulin PLAN: Plan Debridement performed today in clinic as annotated above. At home wound-care instructions: Wash ulcer with soap and water daily and pat dry. Apply Aquacel Ag to wound bed and cover with ABD. Keep dressing clean and dry. Apply Nystatin powder to periwound. Use silicone tape to secure dressings. Diflucan 200 mg once weekly prescribed to treat candidal infection complicating wound healing. Off-loading: The patient was instructed to avoid pressure and friction on the affected areas. Reposition every 2 hours at minimum. Avoid prolonged standing and/or dangling of legs. When seated, feet should be elevated at chest level. Frequent ambulation is encouraged. Diet: Patient encouraged to increase protein intake while taking caution to avoid high carbohydrate and/or sugar intake. Labs/cultures/imaging: Follow-up: Return in 2 weeks for wound care follow up. Return sooner or report to the emergency room should symptoms worsen, or new symptoms arise. Note: [employer] speech recognition electrical test technician software was used to create portions of this document. Sound-alike and misspelled words, as well as other electrical test technician errors may be contained in the documentation.
[2023-07-16 08:47] VITALS: BP 149/75; PULSE 95; RESP 16; TEMP 35.5; BMI 24.7
--- NOTE | 2023-07-16 11:51 | PN.PCM_ITS ---
History of Present Illness Date of Service: 07/16/23 Chief Complaint: abdominal wall ulcer History of Wound: Stacie is a pleasant 77 yo woman that presents to the wound healing center today for evaluation and treatment for a nonhealing ulcer of her abdominal wall that has been present for approximately 6 months. She is a poor historian due to dementia/cognitive impairment. She resides at an assisted living facility in [facility]. She reports that she has 3 sons. She is unable to tell us if she has had any abdominal surgeries or C-sections but the area where the ulcer is located has the appearance of scar tissue and is at the suprapubic area where an incision for a or panniculectomy could be located. It does have the appearance of an old incision site. No surgical history is available and she denies history. She does have diabetes and reports that she has been obese previously and weighed 260 lbs at one point but is now approx. 140 lb. It looks like she has been treated with Silvadene previously. She had been treated with Keflex. Subjective Subjective Stacie returns today for treatment of a nonhealing ulcer of her left abdominal skin fold. There has been minimal change to the ulcer but the periwound has been worse. SNF has been dressing the ulcer with Aquacel Ag and ABD daily per SEP and applying clotrimazole to periwound. Patient is a poor historian due to dementia. She admits increased pain but denies fever, chills, increased drainage or erythema. Objective Data Objective Data Vital Signs: Vital Signs Temp Pulse Resp BP O2 Del Method 95.9 F L 95 16 149/75 H Room Air 07/16/23 08:47 07/16/23 08:47 07/16/23 08:47 07/16/23 08:47 07/16/23 08:47 Oxygen Delivery Method Room Air Weight: 63.503 kg Body Mass Index (BMI) 24.7 Physical Exam Const alert, oriented x3 and no apparent distress General Appearance: cooperative and comfortable HEENT normocephalic and head/scalp atraumatic Resp normal respiratory effort Effort and Inspection: able to speak in complete sentences Cardio regular rate and regular rhythm Skin General Skin Exam: erythema and dermatitis Wounds: wounds noted Wound Narrative: as in clinical panel Psych mental status grossly normal, thought process normal, cooperative and affect normal Debridement Note Debridement Note Wound debrided: left lateral abdomen Laterality: Left Wound Grade/Stage: Stage 3 Type of Debridement: Excisional debridement Anesthesia Used: 4% Lidocaine Solution and 5% Lidocaine Gel Depth: Down to and including healthy tissue and in the subcutaneous layer Percentage of wound debrided: 100 Instrument Used: 5mm curette Tissue Removed: Yellow slough, devitalized tissue Severity: Fat Layer Exposed Amount of bleeding with debridement: Mild Bleeding Controlled with: Compression and gauze Patient tolerated procedure: Patient tolerated procedure well Post-Debridement Measurements and Additional Note: Post-Debridement Measurements/Treatment - Nurse 1 - General Ulcer Assessment Start: 06/18/23 09:21 Freq: Status: Active Protocol: PATRICIAAsh Access TechnologyJaime Activity Type Activity Date Activity User E-sign Co-sign Detail Recorded Client Recorded Date Recorded By Document 06/18/23 09:21 PL Tablet 06/18/23 09:23 PL Document 07/02/23 09:07 RB Desktop 07/02/23 09:09 RB Document 07/16/23 08:47 DL Desktop 07/16/23 08:54 DL 06/18/23 07/02/23 07/16/23 09:21 09:07 08:47 - Today's Visit Information Type of service Follow-up Visit Follow-up Visit Follow-up Visit (Physician/RETREAD TECHNICIAN (Physician/RETREAD TECHNICIAN (Physician/RETREAD TECHNICIAN ) ) ) Arrival Mode Wheelchair Wheelchair Wheelchair Transfer Assistance Manual Manual Other Transfer Assist (Other) 1 assist Patient Identification Verified (Name & Yes Yes Yes ) Patient Requires Transmission-Based No No No Precautions Safety Precautions NA Height and Weight Body Mass Index (BMI) 24.7 24.7 24.7 BMI Classification Normal Normal Normal Vital Signs Temperature (97.8 F-99.1 F) 97.5 F L 96 F L 95.9 F L Temperature Source Temporal Temporal Temporal Pulse Rate (60-100) 82 99 95 Pulse Location Monitor Monitor Respiratory Rate (12-18) 18 18 16 Respiratory rate source Observation Observation Oxygen Delivery Method Room Air Blood Pressure (90/60-120/80) 150/57 H 150/85 H 149/75 H Blood Pressure Mean (mm Hg) 88 106 99 Source Monitor Monitor Position Semi-Fowlers Sitting Blood Pressure Location Left Arm Right Arm History Since Last Visit- (Skip if this is Patient's initial visit) Have you changed medications since your No No No last visit? Any new allergies or adverse reactions No No No Had a fall/change in ADL's that may No No No increase risk of falls Signs or symptoms of abuse and/or No No No neglect since last visit Have you been in the hospital since your No No No last visit? Has dressing in place as prescribed Yes Yes Yes Has compression in place as prescribed N/A No N/A Has offloadiing in place as prescribed N/A No N/A Experienced any changes in pain level or No No No management Left Footwear Regular Shoe Right Footwear Regular Shoe Pain Scale: 0-10 Numeric Is Patient Pain Free? Yes Yes Yes WC - Nurse 1 - General Ulcer Measurement Start: 06/18/23 09:21 Freq: Status: Active Protocol: Activity Type Activity Date Activity User E-sign Co-sign Detail Recorded Client Recorded Date Recorded By Document 07/02/23 09:07 RB Desktop 07/02/23 09:09 RB Document 07/16/23 08:47 DL Desktop 07/16/23 08:54 DL 07/02/23 07/16/23 09:07 08:47 Wound Center Nurse 1 1. L abd fold -Combined with other wound No No -Current Size (cm) - Length 1.5 1.3 -Current Size (cm) - Width 7.5 9 -Current Size (cm) - Depth 0.1 0.2 -Total Square Cm 11.25 11.7 -Date of Last Picture (Recall this 07/16/23 field) -Photo Taken Yes -Epithelialization None Present -Tunneling No No -Undermining/Tunneling No No -Circular Undermining No -Exudate Amt Large Large -Exudate Type Serosanguineous Serosanguineous -Wound Margin Thickened & Distinct, Rolled Under Outline Attached -Granulation Amt Large (67-100%) Medium (34-66%) -Granulation Quality [place] -Slough/Fibrin Yes Yes -Necrosis Amt Medium (34-66%) Medium (34-66%) -Necrotic Tissue Type Adherent Slough Adherent Slough -Structure Exposed N/A -Texture (Lupis-wound Skin Appearance) Assessed Assessed, Excoriation, Scarring,Rash -Moisture (Lupis-wound Skin Appearance) Assessed Assessed -Color (Lupis-wound Skin Appearance) Erythema Assessed, Erythema -Temperature (Lupis-wound Skin No Abnormality No Abnormality Appearance) (Pt Warm) (Pt Warm) -Tenderness on Palpation (Lupis-wound No Yes Skin Appearance) -Ulcer Cleansing Wound Cleanser Soap and Water -Foul Odor after Cleansing No No -Anesthetic Used 4% Lidocaine 4% Lidocaine Solution Solution WC - Nurse 2 - General Ulcer CM Notes Start: 06/18/23 09:21 Freq: Status: Active Protocol: Activity Type Activity Date Activity User E-sign Co-sign Detail Recorded Client Recorded Date Recorded By Document 06/18/23 09:57 GM Desktop 06/18/23 10:15 GM Document 07/02/23 09:43 MW Desktop 07/02/23 09:51 MW Document 07/16/23 09:38 GM Desktop 07/16/23 09:46 GM 06/18/23 07/02/23 07/16/23 09:57 09:43 09:38 Wound Center Nurse 2 1. L abd fold -Time 09:57 09:43 09:38 -Correct Patient Yes Yes Yes -Correct Side, Site, Position Yes Yes Yes -Correct Procedure Yes Yes Yes -Procedure Performed Yes Yes Yes -Type of Procedure Debridement Debridement Debridement -Clinical Debridement Subcutaneous Subcutaneous Subcutaneous -Tissue Removed Subcutaneous Subcutaneous Subcutaneous -Post Debridement (cm) - Length 1.7 8.0 1.0 -Post Debridement (cm) - Width 6.8 1.5 7.0 -Post Debridement (cm) - Depth 0.1 0.1 0.1 -Total Square (Post) (cm) 11.56 12.00 7.00 -Area of Debridement (cm) - Length 1.7 8.0 1.0 -Area of Debridement (cm) - Width 6.8 1.5 7.0 -Total Square (Area) (cm) 11.56 12.00 7.00 -Tunneling No No No -Undermining/Tunneling No No No -Circular Undermining No No -Wound/Ulcer Outcome Not Healed Not Healed Not Healed -Ulcer Cleansing Rinsed/ Rinsed/ Rinsed/ Irrigated with Irrigated with Irrigated with Saline Saline Saline -Foul Odor after Cleansing No No Yes, Due to Product Use -Bioengineered Tissue No No No -Bleeding Controlled with Pressure Pressure Pressure -Treatment Response Procedure Procedure Procedure Tolerated Well Tolerated Well Tolerated Well -Offloading No -Debridement - Subq, 1st 20sq cm Yes Yes Yes Pain Scale: 0-10 Numeric Is Patient Pain Free? Yes Yes Yes WC - Nurse 3 - General Ulcer D/C NN Start: 06/18/23 09:21 Freq: Status: Active Protocol: Activity Type Activity Date Activity User E-sign Co-sign Detail Recorded Client Recorded Date Recorded By Document 06/18/23 10:18 GM Desktop 06/18/23 10:19 GM Document 07/02/23 10:02 BM Desktop 07/02/23 10:03 [facility] Document 07/16/23 09:49 KW Desktop 07/16/23 09:51 KW 06/18/23 07/02/23 07/16/23 10:18 10:02 09:49 Wound Care Center Nurse 3 1. L abd fold -Ulcer Cleansing Not Cleansed Rinsed/ Rinsed/ Irrigated with Irrigated with Saline Saline -Foul Odor after Cleansing No No -Negative Pressure Wound Therapy N/A -Primary Dressing Applied Aquacel AG 4x4 Aquacel AG 4x4 Aquacel Extra -Other Dressing abd, silicone tape -Primary Dressing Covered/Secured with Dry Gauze, Dry Gauze, Secured with Secured with Tape Tape -Aquacel Extra 1 -Aquacel AG 4x4 1 1 Treatment Response Procedure Tolerated Well Pain Scale: 0-10 Numeric Is Patient Pain Free? Yes Yes Yes Teaching: Wound Center wound description -Person Taught Patient -Teaching Method Discussion -Response to teaching Verbalize understanding, Reinforcement needed Dressing Your Wound -Person Taught Patient -Teaching Method Discussion, Demonstration -Response to teaching Verbalize understanding WC - Visit Discharge Discharge Condition Stable Stable Stable Ambulatory Status Wheelchair Transportation halfway ecf halfway transport transport Medication Reconcilliation completed & Yes No provided to patient/care provider Clinical Summary of Care Provided Yes Yes Facility Type Detention Care Facility Assessment/Plan Assessment/Plan (1) HTN (hypertension): CODE(S): I10 - Essential (primary) hypertension QUALIFIERS: Hypertension type: primary hypertension Qualified Code(s): I10 - Essential (primary) hypertension (2) Rheumatoid arthritis: CODE(S): M06.9 - Rheumatoid arthritis, unspecified QUALIFIERS: Rheumatoid arthritis location: multiple sites Rheumatoid factor presence: unspecified presence Qualified Code(s): M06.9 - Rheumatoid arthritis, unspecified (3) Polymyalgia rheumatica: CODE(S): M35.3 - Polymyalgia rheumatica (4) Insulin dependent diabetes mellitus: (5) Neuropathy due to type 2 diabetes mellitus: CODE(S): E11.40 - Type 2 diabetes mellitus with diabetic neuropathy, unspecified (6) Skin ulcer of abdomen with fat layer exposed: CODE(S): L98.492 - Non-pressure chronic ulcer of skin of other sites with fat layer exposed (7) Nonhealing nonsurgical wound with fat layer exposed: CODE(S): T14.8XXA - Other injury of unspecified body region, initial encounter (8) Type 2 diabetes mellitus without complications: CODE(S): E11.9 - Type 2 diabetes mellitus without complications QUALIFIERS: Diabetes mellitus longterm insulin use: with longterm use Qualified Code(s): E11.9 - Type 2 diabetes mellitus without complications; Z79.4 - regional intermodal truck driver (current) use of insulin PLAN: Plan Debridement performed today in clinic as annotated above. At home wound-care instructions: Wash ulcer with soap and water daily and pat dry. Apply Aquacel Extra to wound bed and cover with ABD. Keep dressing clean and dry. Apply Nystatin powder to periwound. Use silicone tape to secure dressings. Diflucan 200 mg once weekly prescribed to treat candidal infection complicating wound healing. Off-loading: The patient was instructed to avoid pressure and friction on the affected areas. Reposition every 2 hours at minimum. Avoid prolonged standing and/or dangling of legs. When seated, feet should be elevated at chest level. Frequent ambulation is encouraged. Diet: Patient encouraged to increase protein intake while taking caution to avoid high carbohydrate and/or sugar intake. Labs/cultures/imaging: Follow-up: Return in 2 weeks for wound care follow up. Return sooner or report to the emergency room should symptoms worsen, or new symptoms arise. Note: [employer] speech recognition trademark affixer software was used to create portions of this document. Sound-alike and misspelled words, as well as other trademark affixer errors may be contained in the documentation.
== END 2023-07-18 23:59 | disposition home or self-care (01) ==
LOC: WC 09:00
PROVIDERS: PCP Internal Medicine; Referring Provider Internal Medicine; Visit Provider Family Medicine
DX: E11.622 Type 2 diabetes mellitus with other skin ulcer (principal); L98.492 Non-pressure chronic ulcer of skin of other sites with fat layer exposed; M35.3 Polymyalgia rheumatica; M06.9 Rheumatoid arthritis, unspecified; F03.90 Unspecified dementia, unspecified severity, without behavioral disturbance, psychotic disturbance, mood disturbance, and anxiety; Z79.4 Long term (current) use of insulin; R41.89 Other symptoms and signs involving cognitive functions and awareness; I10 Essential (primary) hypertension
CPT/HCPCS: 11042

== ENCOUNTER 2023-08-13 09:30 | Outpatient (RCR) | payer MEDICARE, MEDICAID, SELFPAY ==
[2023-07-19 00:12] VITALS: BP 149/75; PULSE 95; RESP 16; TEMP 35.5; BMI 24.7
[2023-07-30 09:40] VITALS: BP 122/69; PULSE 108; RESP 18; TEMP 35.6; BMI 24.7
--- NOTE | 2023-07-30 13:30 | PN.PCM_ITS ---
History of Present Illness Date of Service: 07/30/23 Chief Complaint: abdominal wall ulcer History of Wound: Stacie is a pleasant 77 yo woman that presents to the wound healing center today for evaluation and treatment for a nonhealing ulcer of her abdominal wall that has been present for approximately 6 months. She is a poor historian due to dementia/cognitive impairment. She resides at an assisted living facility in [facility]. She reports that she has 3 sons. She is unable to tell us if she has had any abdominal surgeries or C-sections but the area where the ulcer is located has the appearance of scar tissue and is at the suprapubic area where an incision for a or panniculectomy could be located. It does have the appearance of an old incision site. No surgical history is available and she denies history. She does have diabetes and reports that she has been obese previously and weighed 260 lbs at one point but is now approx. 140 lb. It looks like she has been treated with Silvadene previously. She had been treated with Keflex. Subjective Subjective Stacie returns today for treatment of a nonhealing ulcer of her left abdominal skin fold. There has been minimal change to the ulcer but the periwound has been worse. SNF has been dressing the ulcer with Aquacel Ag and ABD daily per SEP and applying clotrimazole to periwound. Patient is a poor historian due to dementia. She admits increased pain but denies fever, chills, increased drainage or erythema. There is significant odor from the ulcer today. Objective Data Objective Data Vital Signs: Vital Signs Temp Pulse Resp BP O2 Del Method 96.0 F L 108 H 18 122/69 H Room Air 07/30/23 09:40 07/30/23 09:40 07/30/23 09:40 07/30/23 09:40 07/30/23 09:40 Oxygen Delivery Method Room Air Weight: 63.503 kg Body Mass Index (BMI) 24.7 Physical Exam Const alert, oriented x3 and no apparent distress General Appearance: cooperative and comfortable HEENT normocephalic and head/scalp atraumatic Resp normal respiratory effort Effort and Inspection: able to speak in complete sentences Cardio regular rate and regular rhythm Skin General Skin Exam: erythema and dermatitis Wounds: wounds noted Wound Narrative: as in clinical panel Psych mental status grossly normal, thought process normal, cooperative and affect normal Debridement Note Debridement Note Wound debrided: left lateral abdomen Laterality: Left Wound Grade/Stage: Stage 3 Type of Debridement: Excisional debridement Anesthesia Used: 4% Lidocaine Solution and 5% Lidocaine Gel Depth: Down to and including healthy tissue and in the subcutaneous layer Percentage of wound debrided: 100 Instrument Used: 5mm curette Tissue Removed: Yellow slough, devitalized tissue Severity: Fat Layer Exposed Amount of bleeding with debridement: Mild Bleeding Controlled with: Compression and gauze Patient tolerated procedure: Patient tolerated procedure well Post-Debridement Measurements and Additional Note: Post-Debridement Measurements/Treatment - Nurse 1 - General Ulcer Assessment Start: 07/30/23 09:39 Freq: Status: Active Protocol: JOSUE Activity Type Activity Date Activity User E-sign Co-sign Detail Recorded Client Recorded Date Recorded By Document 07/30/23 09:40 KW Desktop 07/30/23 09:49 KW 07/30/23 09:40 WC - Today's Visit Information Type of service Follow-up Visit (Physician/INSPECTOR WATCH ASSEMBLY ) Arrival Mode Wheelchair Patient Identification Verified (Name & Yes ) Height and Weight Body Mass Index (BMI) 24.7 BMI Classification Normal Vital Signs Temperature (97.8 F-99.1 F) 96.0 F L Temperature Source Temporal Pulse Rate (60-100) 108 H Pulse Location Monitor Respiratory Rate (12-18) 18 Respiratory rate source Observation Oxygen Delivery Method Room Air Blood Pressure (90/60-120/80) 122/69 H Blood Pressure Mean (mm Hg) 86 Source Monitor Position Sitting Blood Pressure Location Left Arm History Since Last Visit- (Skip if this is Patient's initial visit) Have you changed medications since your No last visit? Any new allergies or adverse reactions No Had a fall/change in ADL's that may No increase risk of falls Signs or symptoms of abuse and/or No neglect since last visit Have you been in the hospital since your No last visit? Has dressing in place as prescribed Yes Has compression in place as prescribed N/A Has offloadiing in place as prescribed N/A Experienced any changes in pain level or No management Left Footwear Regular Shoe Right Footwear Regular Shoe Pain Scale: 0-10 Numeric Is Patient Pain Free? Yes - Nurse 1 - General Ulcer Measurement Start: 07/30/23 09:39 Freq: Status: Active Protocol: Activity Type Activity Date Activity User E-sign Co-sign Detail Recorded Client Recorded Date Recorded By Document 07/30/23 09:40 KW Desktop 07/30/23 09:49 07/30/23 09:40 Wound Center Nurse 1 1. L abd fold -Current Size (cm) - Length 1.5 -Current Size (cm) - Width 5.8 -Current Size (cm) - Depth 0.1 -Total Square Cm 8.70 -Exudate Amt Large -Exudate Type Serosanguineous -Wound Margin Distinct, Outline Attached -Granulation Amt Large (67-100%) -Granulation Quality Red -Texture (Lupis-wound Skin Appearance) Assessed, Excoriation, Rash -Moisture (Lupis-wound Skin Appearance) Assessed -Color (Lupis-wound Skin Appearance) Assessed, Erythema -Temperature (Lupis-wound Skin No Abnormality Appearance) (Pt Warm) -Tenderness on Palpation (Lupis-wound Yes Skin Appearance) -Ulcer Cleansing Soap and Water -Foul Odor after Cleansing Yes -Anesthetic Used 5% Lidocaine Gel -Wound Comment(s) ABD is very excoriated and sore. WC - Nurse 2 - General Ulcer CM Notes Start: 07/30/23 09:39 Freq: Status: Active Protocol: Activity Type Activity Date Activity User E-sign Co-sign Detail Recorded Client Recorded Date Recorded By Document 07/30/23 10:20 Desktop 07/30/23 10:21 07/30/23 10:20 Wound Center Nurse 2 -Time 10:20 -Correct Patient Yes -Correct Side, Site, Position Yes -Correct Procedure Yes -Procedure Performed Yes -Type of Procedure Debridement -Clinical Debridement Subcutaneous -Tissue Removed Subcutaneous -Post Debridement (cm) - Length 1.2 -Post Debridement (cm) - Width 6.0 -Post Debridement (cm) - Depth 0.1 -Total Square (Post) (cm) 7.20 -Area of Debridement (cm) - Length 1.2 -Area of Debridement (cm) - Width 6.0 -Total Square (Area) (cm) 7.20 -Tunneling No -Undermining/Tunneling No -Circular Undermining No -Wound/Ulcer Outcome Not Healed -Ulcer Cleansing Rinsed/ Irrigated with Saline -Foul Odor after Cleansing No -Bioengineered Tissue No -Bleeding Controlled with Pressure -Treatment Response Procedure Tolerated Well -Debridement - Subq, 1st 20sq cm Yes Pain Scale: 0-10 Numeric Is Patient Pain Free? Yes WC - Nurse 3 - General Ulcer D/C NN Start: 07/30/23 09:39 Freq: Status: Active Protocol: Activity Type Activity Date Activity User E-sign Co-sign Detail Recorded Client Recorded Date Recorded By Document 07/30/23 10:24 RB Desktop 07/30/23 10:26 RB 07/30/23 10:24 Wound Care Center Nurse 3 1. L abd fold -Ulcer Cleansing Wound Cleanser -Primary Dressing Applied Aquacel Extra -Other Dressing abd -Primary Dressing Covered/Secured with Secured with Tape -Other Covering silicone tape -Aquacel Extra 1 Treatment Response Procedure Tolerated Well Pain Scale: 0-10 Numeric Is Patient Pain Free? No lower abd -Description Aching -Intensity 5 -Duration (hours) Acute -Pain Aggravating Factors Debridement -Alleviating Factors/Interventions Medication -Effectiveness of Alleviating Factor/ Minimally Intervention effective WC - Visit Discharge Discharge Condition Stable Ambulatory Status Wheelchair Transportation Private Auto Medication Reconcilliation completed & No provided to patient/care provider Clinical Summary of Care Provided Yes Assessment/Plan Assessment/Plan (1) HTN (hypertension): CODE(S): I10 - Essential (primary) hypertension QUALIFIERS: Hypertension type: primary hypertension Qualified Code(s): I10 - Essential (primary) hypertension (2) Rheumatoid arthritis: CODE(S): M06.9 - Rheumatoid arthritis, unspecified QUALIFIERS: Rheumatoid arthritis location: multiple sites Rheumatoid factor presence: unspecified presence Qualified Code(s): M06.9 - Rheumatoid arthritis, unspecified (3) Polymyalgia rheumatica: CODE(S): M35.3 - Polymyalgia rheumatica (4) Insulin dependent diabetes mellitus: (5) Neuropathy due to type 2 diabetes mellitus: CODE(S): E11.40 - Type 2 diabetes mellitus with diabetic neuropathy, unspecified (6) Skin ulcer of abdomen with fat layer exposed: CODE(S): L98.492 - Non-pressure chronic ulcer of skin of other sites with fat layer exposed (7) Nonhealing nonsurgical wound with fat layer exposed: CODE(S): T14.8XXA - Other injury of unspecified body region, initial encounter (8) Type 2 diabetes mellitus without complications: CODE(S): E11.9 - Type 2 diabetes mellitus without complications QUALIFIERS: Diabetes mellitus intermodal owner operator truck driver insulin use: with intermodal owner operator truck driver use Qualified Code(s): E11.9 - Type 2 diabetes mellitus without complications; Z79.4 - termite inspector (current) use of insulin PLAN: Plan Debridement performed today in clinic as annotated above. At home wound-care instructions: Wash ulcer with soap and water daily and pat dry. Apply Aquacel Extra to wound bed and cover with ABD. Keep dressing clean a nd dry. Apply Nystatin powder to periwound. Use silicone tape to secure dressings. Diflucan 200 mg once weekly prescribed to treat candidal infection complicating wound healing. Change dressings twice daily due to periwound irritation. Off-loading: The patient was instructed to avoid pressure and friction on the affected areas. Reposition every 2 hours at minimum. Avoid prolonged standing and/or dangling of legs. When seated, feet should be elevated at chest level. Frequent ambulation is encouraged. Diet: Patient encouraged to increase protein intake while taking caution to avoid high carbohydrate and/or sugar intake. Labs/cultures/imaging: Wound culture taken today due to odor and increased erythema. Follow-up: Return in 2 weeks for wound care follow up. Return sooner or report to the emergency room should symptoms worsen, or new symptoms arise. Note: [employer] speech recognition boatbuilder supervisor software was used to create portions of this document. Sound-alike and misspelled words, as well as other boatbuilder supervisor errors may be contained in the documentation.
[2023-08-13 09:40] VITALS: BP 138/81; PULSE 94; RESP 18; TEMP 35.7; BMI 24.7
--- NOTE | 2023-08-13 12:46 | PCM.WC.PN ---
History of Present Illness Date of Service: 08/13/23 Chief Complaint: abdominal wall ulcer History of Wound: Stacie is a pleasant 77 yo woman that presents to the wound healing center today for evaluation and treatment for a nonhealing ulcer of her abdominal wall that has been present for approximately 6 months. She is a poor historian due to dementia/cognitive impairment. She resides at an assisted living facility in [facility]. She reports that she has 3 sons. She is unable to tell us if she has had any abdominal surgeries or C-sections but the area where the ulcer is located has the appearance of scar tissue and is at the suprapubic area where an incision for a or panniculectomy could be located. It does have the appearance of an old incision site. No surgical history is available and she denies history. She does have diabetes and reports that she has been obese previously and weighed 260 lbs at one point but is now approx. 140 lb. It looks like she has been treated with Silvadene previously. She had been treated with Keflex. Subjective Subjective Stacie returns today for treatment of a nonhealing ulcer of her left abdominal skin fold. There has been minimal change to the ulcer but the periwound has been worse. SNF has been dressing the ulcer with Aquacel Ag and ABD twice daily per SEP and applying clotrimazole to periwound. Patient is a poor historian due to dementia. She admits improvement in pain but denies fever, chills, increased drainage or erythema. Wound culture was positive for Enterococcus and anaerobic bacteria. Has been on Augmentin x 2 weeks. Objective Data Objective Data Vital Signs: Vital Signs Temp Pulse Resp BP O2 Del Method 96.3 F L 94 18 138/81 H Room Air 08/13/23 09:40 08/13/23 09:40 08/13/23 09:40 08/13/23 09:40 07/30/23 09:40 Oxygen Delivery Method Room Air Weight: 63.503 kg Body Mass Index (BMI) 24.7 Lab / Micro Data Micro: Microbiology 07/30/23 10:20 Wound - Abdominal Gram Stain - Final 07/30/23 10:20 Wound - Abdominal Wound Culture - Final Enterococcus faecalis Gram positive twan 07/30/23 10:20 Wound - Abdominal Anaerobic Culture - Final Anaerobic cocci Physical Exam Const alert, oriented x3 and no apparent distress General Appearance: cooperative and comfortable HEENT normocephalic and head/scalp atraumatic Resp normal respiratory effort Effort and Inspection: able to speak in complete sentences Cardio regular rate and regular rhythm Skin General Skin Exam: erythema and dermatitis Wounds: wounds noted Wound Narrative: as in clinical panel Psych mental status grossly normal, thought process normal, cooperative and affect normal Debridement Note Debridement Note Wound debrided: left lateral abdomen Laterality: Left Wound Grade/Stage: Stage 3 Type of Debridement: Excisional debridement Anesthesia Used: 4% Lidocaine Solution and 5% Lidocaine Gel Depth: Down to and including healthy tissue and in the subcutaneous layer Percentage of wound debrided: 100 Instrument Used: 5mm curette Tissue Removed: Yellow slough, devitalized tissue Severity: Fat Layer Exposed Amount of bleeding with debridement: Mild Bleeding Controlled with: Compression and gauze Patient tolerated procedure: Patient tolerated procedure well Post-Debridement Measurements and Additional Note: Post-Debridement Measurements/Treatment - Nurse 1 - General Ulcer Assessment Start: 07/30/23 09:39 Freq: Status: Active Protocol: JOSUE Activity Type Activity Date Activity User E-sign Co-sign Detail Recorded Client Recorded Date Recorded By Document 07/30/23 09:40 KW Desktop 07/30/23 09:49 KW Document 08/13/23 09:40 RB [id number] 08/13/23 09:42 RB 07/30/23 08/13/23 09:40 09:40 - Today's Visit Information Type of service Follow-up Visit Follow-up Visit (Physician/AGENT BROKER (Physician/AGENT BROKER ) ) Arrival Mode Wheelchair Ambulatory Transfer Assistance None Patient Identification Verified (Name & Yes Yes ) Patient Requires Transmission-Based No Precautions Height and Weight Body Mass Index (BMI) 24.7 24.7 BMI Classification Normal Normal Vital Signs Temperature (97.8 F-99.1 F) 96.0 F L 96.3 F L Temperature Source Temporal Temporal Pulse Rate (60-100) 108 H 94 Pulse Location Monitor Monitor Respiratory Rate (12-18) 18 18 Respiratory rate source Observation Observation Oxygen Delivery Method Room Air Blood Pressure (90/60-120/80) 122/69 H 138/81 H Blood Pressure Mean (mm Hg) 86 100 Source Monitor Monitor Position Sitting Semi-Fowlers Blood Pressure Location Left Arm Left Arm History Since Last Visit- (Skip if this is Patient's initial visit) Have you changed medications since your No No last visit? Any new allergies or adverse reactions No No Had a fall/change in ADL's that may No No increase risk of falls Signs or symptoms of abuse and/or No No neglect since last visit Have you been in the hospital since your No No last visit? Has dressing in place as prescribed Yes Yes Has compression in place as prescribed N/A No Has offloadiing in place as prescribed N/A No Experienced any changes in pain level or No No management Left Footwear Regular Shoe Right Footwear Regular Shoe Pain Scale: 0-10 Numeric Is Patient Pain Free? Yes Yes WC - Nurse 1 - General Ulcer Measurement Start: 07/30/23 09:39 Freq: Status: Active Protocol: Activity Type Activity Date Activity User E-sign Co-sign Detail Recorded Client Recorded Date Recorded By Document 07/30/23 09:40 KW Desktop 07/30/23 09:49 KW Document 08/13/23 09:40 RB [id number] 08/13/23 09:42 RB 07/30/23 08/13/23 09:40 09:40 Wound Center Nurse 1 1. L abd fold -Combined with other wound No -Current Size (cm) - Length 1.5 7.4 -Current Size (cm) - Width 5.8 1.2 -Current Size (cm) - Depth 0.1 0.1 -Total Square Cm 8.70 8.88 -Photo Taken Yes -Tunneling No -Undermining/Tunneling No -Circular Undermining No -Exudate Amt Large Medium -Exudate Type Serosanguineous Serosanguineous -Wound Margin Distinct, Distinct, Outline Outline Attached Attached -Granulation Amt Large (67-100%) Medium (34-66%) -Granulation Quality [place] -Slough/Fibrin Yes -Necrosis Amt Medium (34-66%) -Necrotic Tissue Type Adherent Slough -Structure Exposed N/A -Texture (Lupis-wound Skin Appearance) Assessed, Assessed Excoriation, Rash -Moisture (Lupis-wound Skin Appearance) Assessed Assessed -Color (Lupis-wound Skin Appearance) Assessed, Assessed, Erythema Erythema -Temperature (Lupis-wound Skin No Abnormality No Abnormality Appearance) (Pt Warm) (Pt Warm) -Tenderness on Palpation (Lupis-wound Yes No Skin Appearance) -Ulcer Cleansing Soap and Water Wound Cleanser -Foul Odor after Cleansing Yes No -Anesthetic Used 5% Lidocaine 4% Lidocaine Gel Solution -Wound Comment(s) ABD is very excoriated and sore. WC - Nurse 2 - General Ulcer CM Notes Start: 07/30/23 09:39 Freq: Status: Active Protocol: Activity Type Activity Date Activity User E-sign Co-sign Detail Recorded Client Recorded Date Recorded By Document 07/30/23 10:20 Desktop 07/30/23 10:21 Document 08/13/23 09:41 Desktop 08/13/23 09:48 07/30/23 08/13/23 10:20 09:41 Wound Center Nurse 2 1. L abd fold -Time 10:20 09:41 -Correct Patient Yes Yes -Correct Side, Site, Position Yes Yes -Correct Procedure Yes Yes -Procedure Performed Yes Yes -Type of Procedure Debridement Debridement -Clinical Debridement Subcutaneous Subcutaneous -Tissue Removed Subcutaneous Subcutaneous -Post Debridement (cm) - Length 1.2 0.8 -Post Debridement (cm) - Width 6.0 6.5 -Post Debridement (cm) - Depth 0.1 0.1 -Total Square (Post) (cm) 7.20 5.20 -Area of Debridement (cm) - Length 1.2 0.8 -Area of Debridement (cm) - Width 6.0 6.5 -Total Square (Area) (cm) 7.20 5.20 -Tunneling No No -Undermining/Tunneling No No -Circular Undermining No No -Wound/Ulcer Outcome Not Healed Not Healed -Ulcer Cleansing Rinsed/ Rinsed/ Irrigated with Irrigated with Saline Saline -Foul Odor after Cleansing No No -Bioengineered Tissue No No -Bleeding Controlled with Pressure Pressure -Treatment Response Procedure Procedure Tolerated Well Tolerated Well -Debridement - Subq, 1st 20sq cm Yes Yes Pain Scale: 0-10 Numeric Is Patient Pain Free? Yes Yes PATRICIA - Nurse 3 - General Ulcer D/C NN Start: 07/30/23 09:39 Freq: Status: Active Protocol: Activity Type Activity Date Activity User E-sign Co-sign Detail Recorded Client Recorded Date Recorded By Document 07/30/23 10:24 RB Desktop 07/30/23 10:26 RB Document 08/13/23 09:52 KW Desktop 08/13/23 09:55 KW 07/30/23 08/13/23 10:24 09:52 Wound Care Center Nurse 3 1. L abd fold -Ulcer Cleansing Wound Cleanser -Primary Dressing Applied Aquacel Extra Aquacel Extra -Other Dressing abd -Primary Dressing Covered/Secured with Secured with Dry Gauze, Tape Secured with Tape -Other Covering silicone tape -Aquacel Extra 1 1 Treatment Response Procedure Tolerated Well Pain Scale: 0-10 Numeric Is Patient Pain Free? No Yes lower abd -Description Aching -Intensity 5 -Duration (hours) Acute -Pain Aggravating Factors Debridement -Alleviating Factors/Interventions Medication -Effectiveness of Alleviating Factor/ Minimally Intervention effective WC - Visit Discharge Discharge Condition Stable Stable Ambulatory Status Wheelchair Wheelchair Transportation Private Auto Medication Reconcilliation completed & No No provided to patient/care provider Clinical Summary of Care Provided Yes Yes Assessment/Plan Assessment/Plan (1) HTN (hypertension): CODE(S): I10 - Essential (primary) hypertension QUALIFIERS: Hypertension type: primary hypertension Qualified Code(s): I10 - Essential (primary) hypertension (2) Rheumatoid arthritis: CODE(S): M06.9 - Rheumatoid arthritis, unspecified QUALIFIERS: Rheumatoid arthritis location: multiple sites Rheumatoid factor presence: unspecified presence Qualified Code(s): M06.9 - Rheumatoid arthritis, unspecified (3) Polymyalgia rheumatica: CODE(S): M35.3 - Polymyalgia rheumatica (4) Insulin dependent diabetes mellitus: (5) Neuropathy due to type 2 diabetes mellitus: CODE(S): E11.40 - Type 2 diabetes mellitus with diabetic neuropathy, unspecified (6) Skin ulcer of abdomen with fat layer exposed: CODE(S): L98.492 - Non-pressure chronic ulcer of skin of other sites with fat layer exposed (7) Nonhealing nonsurgical wound with fat layer exposed: CODE(S): T14.8XXA - Other injury of unspecified body region, initial encounter (8) Type 2 diabetes mellitus without complications: CODE(S): E11.9 - Type 2 diabetes mellitus without complications QUALIFIERS: Diabetes mellitus intermodal dispatcher insulin use: with usp use Qualified Code(s): E11.9 - Type 2 diabetes mellitus without complications; Z79.4 - jail (current) use of insulin PLAN: Plan Debridement performed today in clinic as annotated above. At home wound-care instructions: There has been improvement in the erythema and no more odor. Wash ulcer with soap and water daily and pat dry. Apply Aquacel Extra to wound bed and cover with ABD. Keep dressing clean and dry. Apply Nystatin powder to periwound. Use silicone tape to secure dressings. Diflucan 200 mg once weekly prescribed to treat candidal infection complicating wound healing. Change dressings twice daily due to periwound irritation. Will extend antibiotic x 1 week. Off-loading: The patient was instructed to avoid pressure and friction on the affected areas. Reposition every 2 hours at minimum. Avoid prolonged standing and/or dangling of legs. When seated, feet should be elevated at chest level. Frequent ambulation is encouraged. Diet: Patient encouraged to increase protein intake while taking caution to avoid high carbohydrate and/or sugar intake. Labs/cultures/imaging: Wound culture 07/30/23 was positive for anearobic bacteria and Enterococcus. Follow-up: Return in 2 weeks for wound care follow up. Return sooner or report to the emergency room should symptoms worsen, or new symptoms arise. Note: [employer] speech recognition business records manager software was used to create portions of this document. Sound-alike and misspelled words, as well as other business records manager errors may be contained in the documentation.
== END 2023-08-18 23:59 | disposition home or self-care (01) ==
LOC: WC 09:30
PROVIDERS: PCP Internal Medicine; Referring Provider Internal Medicine; Visit Provider Family Medicine
DX: E11.622 Type 2 diabetes mellitus with other skin ulcer (principal); L98.492 Non-pressure chronic ulcer of skin of other sites with fat layer exposed; M06.9 Rheumatoid arthritis, unspecified; M35.3 Polymyalgia rheumatica; F03.90 Unspecified dementia, unspecified severity, without behavioral disturbance, psychotic disturbance, mood disturbance, and anxiety; E11.40 Type 2 diabetes mellitus with diabetic neuropathy, unspecified; Z79.4 Long term (current) use of insulin; I10 Essential (primary) hypertension
CPT/HCPCS: 11042; 87070; 87075; 87077; 87186; 87205

== ENCOUNTER 2023-09-10 09:00 | Outpatient (RCR) | payer MEDICARE, MEDICAID, SELFPAY ==
[2023-08-19 00:12] VITALS: BP 138/81; PULSE 94; RESP 18; TEMP 35.7; BMI 24.7
[2023-08-27 09:14] VITALS: BP 191/92; PULSE 78; RESP 18; TEMP 35.7; BMI 24.7
--- NOTE | 2023-08-27 12:19 | PCM.WC.PN ---
History of Present Illness Date of Service: 08/27/23 Chief Complaint: abdominal wall ulcer History of Wound: Stacie is a pleasant 77 yo woman that presents to the wound healing center today for evaluation and treatment for a nonhealing ulcer of her abdominal wall that has been present for approximately 6 months. She is a poor historian due to dementia/cognitive impairment. She resides at an assisted living facility in [facility]. She reports that she has 3 sons. She is unable to tell us if she has had any abdominal surgeries or C-sections but the area where the ulcer is located has the appearance of scar tissue and is at the suprapubic area where an incision for a or panniculectomy could be located. It does have the appearance of an old incision site. No surgical history is available and she denies history. She does have diabetes and reports that she has been obese previously and weighed 260 lbs at one point but is now approx. 140 lb. It looks like she has been treated with Silvadene previously. She had been treated with Keflex. Subjective Subjective Stacie returns today for treatment of a nonhealing ulcer of her left abdominal skin fold. There has been minimal change to the ulcer but the periwound has been worse. SNF has been dressing the ulcer with Aquacel Ag and ABD twice daily per SEP and applying clotrimazole to periwound. Patient is a poor historian due to dementia. She admits improvement in pain but denies fever, chills, increased drainage or erythema. Wound culture was positive for Enterococcus and anaerobic bacteria. Has been on Augmentin x 4 weeks. Objective Data Objective Data Vital Signs: Vital Signs Temp Pulse Resp BP O2 Del Method 96.2 F L 78 18 191/92 H Room Air 08/27/23 09:14 08/27/23 09:14 08/27/23 09:14 08/27/23 09:14 08/27/23 09:14 Oxygen Delivery Method Room Air Weight: 63.503 kg Body Mass Index (BMI) 24.7 Physical Exam Const alert, oriented x3 and no apparent distress General Appearance: cooperative and comfortable HEENT normocephalic and head/scalp atraumatic Resp normal respiratory effort Effort and Inspection: able to speak in complete sentences Cardio regular rate and regular rhythm Skin General Skin Exam: erythema and dermatitis Wounds: wounds noted Wound Narrative: as in clinical panel Psych mental status grossly normal, thought process normal, cooperative and affect normal Debridement Note Debridement Note Wound debrided: left lateral abdomen Laterality: Left Wound Grade/Stage: Stage 3 Type of Debridement: Selective debridement Anesthesia Used: 4% Lidocaine Solution and 5% Lidocaine Gel Depth: Down to and including healthy tissue and in the subcutaneous layer Percentage of wound debrided: 100 Instrument Used: 5mm curette Tissue Removed: Yellow slough, devitalized tissue Severity: Fat Layer Exposed Amount of bleeding with debridement: Mild Bleeding Controlled with: Compression and gauze Patient tolerated procedure: Patient tolerated procedure well Post-Debridement Measurements and Additional Note: Post-Debridement Measurements/Treatment - Nurse 1 - General Ulcer Assessment Start: 08/27/23 09:13 Freq: Status: Active Protocol: JOSUE Activity Type Activity Date Activity User E-sign Co-sign Detail Recorded Client Recorded Date Recorded By Document 08/27/23 09:14 KW Desktop 08/27/23 09:34 KW 08/27/23 09:14 WC - Today's Visit Information Type of service Follow-up Visit (Physician/INFORMATION SECURITY CONSULTANT ) Arrival Mode Wheelchair Accompanied by nursing aid Patient Identification Verified (Name & Yes ) Height and Weight Body Mass Index (BMI) 24.7 BMI Classification Normal Vital Signs Temperature (97.8 F-99.1 F) 96.2 F L Temperature Source Temporal Pulse Rate (60-100) 78 Pulse Location Monitor Respiratory Rate (12-18) 18 Respiratory rate source Observation Oxygen Delivery Method Room Air Blood Pressure (90/60-120/80) 191/92 H Blood Pressure Mean (mm Hg) 125 Source Monitor Position Sitting Blood Pressure Location Right Forearm History Since Last Visit- (Skip if this is Patient's initial visit) Have you changed medications since your No last visit? Any new allergies or adverse reactions No Had a fall/change in ADL's that may No increase risk of falls Signs or symptoms of abuse and/or No neglect since last visit Have you been in the hospital since your No last visit? Has dressing in place as prescribed Yes Has compression in place as prescribed N/A Has offloadiing in place as prescribed N/A Experienced any changes in pain level or No management Left Footwear Regular Shoe Right Footwear Regular Shoe Pain Scale: 0-10 Numeric Is Patient Pain Free? Yes - Nurse 1 - General Ulcer Measurement Start: 08/27/23 09:13 Freq: Status: Active Protocol: Activity Type Activity Date Activity User E-sign Co-sign Detail Recorded Client Recorded Date Recorded By Document 08/27/23 09:14 KW Desktop 08/27/23 09:34 KW 08/27/23 09:14 Wound Center Nurse 1 1. L abd fold -Current Size (cm) - Length 0.5 -Current Size (cm) - Width 6.0 -Current Size (cm) - Depth 0.1 -Total Square Cm 3.00 -Photo Taken No -Epithelialization Small 1-33% -Tunneling No -Undermining/Tunneling No -Circular Undermining No -Exudate Amt Medium -Exudate Type Serosanguineous -Wound Margin Distinct, Outline Attached -Granulation Amt Large (67-100%) -Granulation Quality Red -Slough/Fibrin Yes -Necrosis Amt Small (1-33%) -Necrotic Tissue Type Adherent Slough -Structure Exposed N/A -Texture (Lupis-wound Skin Appearance) Assessed -Moisture (Lupis-wound Skin Appearance) Assessed -Color (Lupis-wound Skin Appearance) Assessed -Temperature (Lupis-wound Skin No Abnormality Appearance) (Pt Warm) -Tenderness on Palpation (Lupis-wound No Skin Appearance) -Ulcer Cleansing Soap and Water -Anesthetic Used 5% Lidocaine Gel WC - Nurse 2 - General Ulcer CM Notes Start: 08/27/23 09:13 Freq: Status: Active Protocol: Activity Type Activity Date Activity User E-sign Co-sign Detail Recorded Client Recorded Date Recorded By Document 08/27/23 09:38 [id number] 08/27/23 09:47 08/27/23 09:38 Wound Center Nurse 2 -Time 09:38 -Correct Patient Yes -Correct Side, Site, Position Yes -Correct Procedure Yes -Procedure Performed Yes -Type of Procedure Debridement -Clinical Debridement Epidermis / Dermis -Tissue Removed Epidermis, Dermis -Post Debridement (cm) - Length 1.0 -Post Debridement (cm) - Width 5.5 -Post Debridement (cm) - Depth 0.1 -Total Square (Post) (cm) 5.50 -Area of Debridement (cm) - Length 1.0 -Area of Debridement (cm) - Width 5.5 -Total Square (Area) (cm) 5.50 -Tunneling No -Undermining/Tunneling No -Circular Undermining No -Wound/Ulcer Outcome Not Healed -Ulcer Cleansing Rinsed/ Irrigated with Saline -Foul Odor after Cleansing No -Bioengineered Tissue No -Bleeding Controlled with Silver Nitrate -Treatment Response Procedure Tolerated Well -Debridement - Open, 1st 20sq cm Yes Pain Scale: 0-10 Numeric Is Patient Pain Free? Yes - Nurse 3 - General Ulcer D/C NN Start: 08/27/23 09:13 Freq: Status: Active Protocol: Activity Type Activity Date Activity User E-sign Co-sign Detail Recorded Client Recorded Date Recorded By Document 08/27/23 10:07 RB Desktop 08/27/23 10:08 RB 08/27/23 10:07 Wound Care Center Nurse 3 1. L abd fold -Ulcer Cleansing Rinsed/ Irrigated with Saline -Primary Dressing Applied Aquacel Extra -Other Dressing abs / silicone tape -Aquacel Extra 1 Treatment Response Procedure Tolerated Well Pain Scale: 0-10 Numeric Is Patient Pain Free? Yes WC - Visit Discharge Discharge Condition Stable Ambulatory Status Wheelchair Transportation NH transport Medication Reconcilliation completed & No provided to patient/care provider Clinical Summary of Care Provided Yes Assessment/Plan Assessment/Plan (1) HTN (hypertension): CODE(S): I10 - Essential (primary) hypertension QUALIFIERS: Hypertension type: primary hypertension Qualified Code(s): I10 - Essential (primary) hypertension (2) Rheumatoid arthritis: CODE(S): M06.9 - Rheumatoid arthritis, unspecified QUALIFIERS: Rheumatoid arthritis location: multiple sites Rheumatoid factor presence: unspecified presence Qualified Code(s): M06.9 - Rheumatoid arthritis, unspecified (3) Polymyalgia rheumatica: CODE(S): M35.3 - Polymyalgia rheumatica (4) Insulin dependent diabetes mellitus: (5) Neuropathy due to type 2 diabetes mellitus: CODE(S): E11.40 - Type 2 diabetes mellitus with diabetic neuropathy, unspecified (6) Skin ulcer of abdomen with fat layer exposed: CODE(S): L98.492 - Non-pressure chronic ulcer of skin of other sites with fat layer exposed (7) Nonhealing nonsurgical wound with fat layer exposed: CODE(S): T14.8XXA - Other injury of unspecified body region, initial encounter (8) Type 2 diabetes mellitus without complications: CODE(S): E11.9 - Type 2 diabetes mellitus without complications QUALIFIERS: Diabetes mellitus medical terminologist insulin use: with senior care use Qualified Code(s): E11.9 - Type 2 diabetes mellitus without complications; Z79.4 - director long term care (current) use of insulin PLAN: Plan Debridement performed today in clinic as annotated above. At home wound-care instructions: There has been improvement in the erythema and no more odor. Wash ulcer with soap and water daily and pat dry. Apply Aquacel Extra to wound bed and cover with ABD. Keep dressing clean and dry. Apply Nystatin powder to periwound. Use silicone tape to secure dressings. Diflucan 200 mg once weekly prescribed to treat candidal infection complicating wound healing. Change dressings twice daily due to periwound irritation. Will check wound culture again today. Off-loading: The patient was instructed to avoid pressure and friction on the affected areas. Reposition every 2 hours at minimum. Avoid prolonged standing and/or dangling of legs. When seated, feet should be elevated at chest level. Frequent ambulation is encouraged. Diet: Patient encouraged to increase protein intake while taking caution to avoid high carbohydrate and/or sugar intake. Labs/cultures/imaging: Wound culture 07/30/23 was positive for anearobic bacteria and Enterococcus, treated x 3 weeks with Augmentin. Follow-up: Return in 2 weeks for wound care follow up. Return sooner or report to the emergency room should symptoms worsen, or new symptoms arise. Note: [employer] speech recognition custom bike builder software was used to create portions of this document. Sound-alike and misspelled words, as well as other custom bike builder errors may be contained in the documentation.
--- NOTE | 2023-08-31 14:14 | WC ---
N.O'S RECEIVED PER DR YUAN IN REGARDS TO RECENT CX RESULTS. AUGMENTIN 500/125MB PO BID X 14 DAYS #28, NO REFILLS. FLAGYL 500MG PO BID X 14 DAYS #28, NO REFILLS. ATTEMPTED MULT X'S TO CALL ORDERS IN TO [facility]. KEPT GETTING VOICEMAIL. LEFT MSG REQUESTING NURSE TO CALL FACILITY FOR NEW MED ORDERS. ALSO, REFAXED CX RESULTS TO FACILITY FOR FYI. ALLERGIES REVIEWED.
[2023-09-10 09:15] VITALS: BP 123/58; PULSE 80; RESP 18; TEMP 36.1; BMI 24.7
--- NOTE | 2023-09-10 13:25 | PN.PCM_ITS ---
History of Present Illness Date of Service: 09/10/23 Chief Complaint: abdominal wall ulcer History of Wound: Stacie is a pleasant 77 yo woman that presents to the wound healing center today for evaluation and treatment for a nonhealing ulcer of her abdominal wall that has been present for approximately 6 months. She is a poor historian due to dementia/cognitive impairment. She resides at an assisted living facility in [facility]. She reports that she has 3 sons. She is unable to tell us if she has had any abdominal surgeries or C-sections but the area where the ulcer is located has the appearance of scar tissue and is at the suprapubic area where an incision for a or panniculectomy could be located. It does have the appearance of an old incision site. No surgical history is available and she denies history. She does have diabetes and reports that she has been obese previously and weighed 260 lbs at one point but is now approx. 140 lb. It looks like she has been treated with Silvadene previously. She had been treated with Keflex. Subjective Subjective Stacie returns today for treatment of a nonhealing ulcer of her left abdominal skin fold. There has been minimal change to the ulcer but the lupis-wound is much better. SNF has been dressing the ulcer with Aquacel Ag and ABD twice daily per SEP and applying clotrimazole to periwound. Patient is a poor historian due to dementia. She admits improvement in pain but denies fever, chills, increased drainage or erythema. Wound culture was positive for MRSA, Enterococcus and anaerobic bacteria 08/27/23. Objective Data Objective Data Vital Signs: Vital Signs Temp Pulse Resp BP O2 Del Method 96.9 F L 80 18 123/58 H Room Air 09/10/23 09:15 09/10/23 09:15 09/10/23 09:15 09/10/23 09:15 08/27/23 09:14 Oxygen Delivery Method Room Air Weight: 63.503 kg Body Mass Index (BMI) 24.7 Lab / Micro Data Micro: Microbiology 08/27/23 09:45 Wound - Abdominal Gram Stain - Final 08/27/23 09:45 Wound - Abdominal Wound Culture - Final Meth. resistant Staph. aureus Enterococcus faecalis Corynebacterium striatum 08/27/23 09:45 Wound - Abdominal Anaerobic Culture - Final Anaerobic cocci Clostridium group Physical Exam Const alert, oriented x3 and no apparent distress General Appearance: cooperative and comfortable HEENT normocephalic and head/scalp atraumatic Resp normal respiratory effort Effort and Inspection: able to speak in complete sentences Cardio regular rate and regular rhythm Skin General Skin Exam: erythema and dermatitis Wounds: wounds noted Wound Narrative: as in clinical panel Psych mental status grossly normal, thought process normal, cooperative and affect normal Debridement Note Debridement Note Wound debrided: left lateral abdomen Laterality: Left Wound Grade/Stage: Stage 3 Type of Debridement: Selective debridement Anesthesia Used: 4% Lidocaine Solution and 5% Lidocaine Gel Depth: Down to and including healthy tissue and in the subcutaneous layer Percentage of wound debrided: 100 Instrument Used: 5mm curette Tissue Removed: Yellow slough, devitalized tissue Severity: Fat Layer Exposed Amount of bleeding with debridement: Mild Bleeding Controlled with: Compression and gauze Patient tolerated procedure: Patient tolerated procedure well Post-Debridement Measurements and Additional Note: Post-Debridement Measurements/Treatment - Nurse 1 - General Ulcer Assessment Start: 08/27/23 09:13 Freq: Status: Active Protocol: JOSUE Activity Type Activity Date Activity User E-sign Co-sign Detail Recorded Client Recorded Date Recorded By Document 08/27/23 09:14 KW Desktop 08/27/23 09:34 KW Document 09/10/23 09:15 RB Desktop 09/10/23 09:17 RB 08/27/23 09/10/23 09:14 09:15 - Today's Visit Information Type of service Follow-up Visit Follow-up Visit (Physician/HOME SECURITY PROFESSIONAL (Physician/HOME SECURITY PROFESSIONAL ) ) Arrival Mode Wheelchair Wheelchair Transfer Assistance Manual Accompanied by nursing aid Patient Identification Verified (Name & Yes No ) Patient Requires Transmission-Based No Precautions Height and Weight Body Mass Index (BMI) 24.7 24.7 BMI Classification Normal Normal Vital Signs Temperature (97.8 F-99.1 F) 96.2 F L 96.9 F L Temperature Source Temporal Temporal Pulse Rate (60-100) 78 80 Pulse Location Monitor Monitor Respiratory Rate (12-18) 18 18 Respiratory rate source Observation Observation Oxygen Delivery Method Room Air Blood Pressure (90/60-120/80) 191/92 H 123/58 H Blood Pressure Mean (mm Hg) 125 79 Source Monitor Monitor Position Sitting Semi-Fowlers Blood Pressure Location Right Forearm Left Arm History Since Last Visit- (Skip if this is Patient's initial visit) Have you changed medications since your No No last visit? Any new allergies or adverse reactions No No Had a fall/change in ADL's that may No No increase risk of falls Signs or symptoms of abuse and/or No No neglect since last visit Have you been in the hospital since your No No last visit? Has dressing in place as prescribed Yes Yes Has compression in place as prescribed N/A No Has offloadiing in place as prescribed N/A No Experienced any changes in pain level or No No management Left Footwear Regular Shoe Right Footwear Regular Shoe Pain Scale: 0-10 Numeric Is Patient Pain Free? Yes Yes WC - Nurse 1 - General Ulcer Measurement Start: 08/27/23 09:13 Freq: Status: Active Protocol: Activity Type Activity Date Activity User E-sign Co-sign Detail Recorded Client Recorded Date Recorded By Document 08/27/23 09:14 KW Desktop 08/27/23 09:34 KW Document 09/10/23 09:15 RB Desktop 09/10/23 09:17 RB 08/27/23 09/10/23 09:14 09:15 Wound Center Nurse 1 1. L abd fold -Combined with other wound No -Current Size (cm) - Length 0.5 6.2 -Current Size (cm) - Width 6.0 1 -Current Size (cm) - Depth 0.1 0.2 -Total Square Cm 3.00 6.2 -Photo Taken No Yes -Epithelialization Small 1-33% -Tunneling No No -Undermining/Tunneling No No -Circular Undermining No No -Exudate Amt Medium Large -Exudate Type Serosanguineous Serosanguineous -Wound Margin Distinct, Distinct, Outline Outline Attached Attached -Granulation Amt Large (67-100%) Medium (34-66%) -Granulation Quality [place] -Slough/Fibrin Yes Yes -Necrosis Amt Small (1-33%) Medium (34-66%) -Necrotic Tissue Type Adherent Slough Adherent Slough -Structure Exposed N/A N/A -Texture (Lupis-wound Skin Appearance) Assessed Assessed -Moisture (Lupis-wound Skin Appearance) Assessed Assessed -Color (Lupis-wound Skin Appearance) Assessed Assessed -Temperature (Lupis-wound Skin No Abnormality No Abnormality Appearance) (Pt Warm) (Pt Warm) -Tenderness on Palpation (Lupis-wound No No Skin Appearance) -Ulcer Cleansing Soap and Water Wound Cleanser -Foul Odor after Cleansing No -Anesthetic Used 5% Lidocaine 5% Lidocaine Gel Gel PATRICIA - Nurse 2 - General Ulcer CM Notes Start: 08/27/23 09:13 Freq: Status: Active Protocol: Activity Type Activity Date Activity User E-sign Co-sign Detail Recorded Client Recorded Date Recorded By Document 08/27/23 09:38 [id number] 08/27/23 09:47 Document 09/10/23 09:32 GM Desktop 09/10/23 09:39 08/27/23 09/10/23 09:38 09:32 Wound Center Nurse 2 1. L abd fold -Time 09:38 09:32 -Correct Patient Yes Yes -Correct Side, Site, Position Yes Yes -Correct Procedure Yes Yes -Procedure Performed Yes Yes -Type of Procedure Debridement Debridement -Clinical Debridement Epidermis / Epidermis / Dermis Dermis -Tissue Removed Epidermis, Epidermis, Dermis Dermis -Post Debridement (cm) - Length 1.0 1.0 -Post Debridement (cm) - Width 5.5 5.5 -Post Debridement (cm) - Depth 0.1 0.1 -Total Square (Post) (cm) 5.50 5.50 -Area of Debridement (cm) - Length 1.0 1.0 -Area of Debridement (cm) - Width 5.5 5.5 -Total Square (Area) (cm) 5.50 5.50 -Tunneling No No -Undermining/Tunneling No No -Circular Undermining No No -Wound/Ulcer Outcome Not Healed Not Healed -Ulcer Cleansing Rinsed/ Rinsed/ Irrigated with Irrigated with Saline Saline -Foul Odor after Cleansing No No -Bioengineered Tissue No No -Bleeding Controlled with Silver Nitrate Pressure -Treatment Response Procedure Procedure Tolerated Well Tolerated Well -Debridement - Open, 1st 20sq cm Yes Yes Pain Scale: 0-10 Numeric Is Patient Pain Free? Yes Yes PATRICIA - Nurse 3 - General Ulcer D/C NN Start: 08/27/23 09:13 Freq: Status: Active Protocol: Activity Type Activity Date Activity User E-sign Co-sign Detail Recorded Client Recorded Date Recorded By Document 08/27/23 10:07 RB Desktop 08/27/23 10:08 RB Document 09/10/23 12:33 RB [id number] 09/10/23 12:34 RB 08/27/23 09/10/23 10:07 12:33 Wound Care Center Nurse 3 1. L abd fold -Ulcer Cleansing Rinsed/ Rinsed/ Irrigated with Irrigated with Saline Saline -Primary Dressing Applied Aquacel Extra Aquacel Extra -Other Dressing abs / silicone ABD , SILICONE tape TAPE -Aquacel Extra 1 1 Treatment Response Procedure Procedure Tolerated Well Tolerated Well Pain Scale: 0-10 Numeric Is Patient Pain Free? Yes Yes WC - Visit Discharge Discharge Condition Stable Stable Ambulatory Status Wheelchair Wheelchair Transportation NH transport [facility] Medication Reconcilliation completed & No No provided to patient/care provider Clinical Summary of Care Provided Yes Yes Assessment/Plan Assessment/Plan (1) HTN (hypertension): CODE(S): I10 - Essential (primary) hypertension QUALIFIERS: Hypertension type: primary hypertension Qualified C ode(s): I10 - Essential (primary) hypertension (2) Rheumatoid arthritis: CODE(S): M06.9 - Rheumatoid arthritis, unspecified QUALIFIERS: Rheumatoid arthritis location: multiple sites Rheumatoid factor presence: unspecified presence Qualified Code(s): M06.9 - Rheumatoid arthritis, unspecified (3) Polymyalgia rheumatica: CODE(S): M35.3 - Polymyalgia rheumatica (4) Insulin dependent diabetes mellitus: (5) Neuropathy due to type 2 diabetes mellitus: CODE(S): E11.40 - Type 2 diabetes mellitus with diabetic neuropathy, unspecified (6) Skin ulcer of abdomen with fat layer exposed: CODE(S): L98.492 - Non-pressure chronic ulcer of skin of other sites with fat layer exposed (7) Nonhealing nonsurgical wound with fat layer exposed: CODE(S): T14.8XXA - Other injury of unspecified body region, initial encounter (8) Type 2 diabetes mellitus without complications: CODE(S): E11.9 - Type 2 diabetes mellitus without complications QUALIFIERS: Diabetes mellitus shelter insulin use: with shelter use Qualified Code(s): E11.9 - Type 2 diabetes mellitus without complications; Z79.4 - [facility] (current) use of insulin PLAN: Plan Debridement performed today in clinic as annotated above. At home wound-care instructions: There has been improvement in the erythema and no more odor. Wash ulcer with soap and water daily and pat dry. Apply Aquacel Extra to wound bed and cover with ABD. Keep dressing clean and dry. Apply Nystatin powder to periwound. Use silicone tape to secure dressings. Diflucan 200 mg once weekly prescribed to treat candidal infection complicating wound healing. Change dressings twice daily due to periwound irritation. Will continue Augmentin and Flagyl. Off-loading: The patient was instructed to avoid pressure and friction on the affected areas. Reposition every 2 hours at minimum. Avoid prolonged standing and/or dangling of legs. When seated, feet should be elevated at chest level. Frequent ambulation is encouraged. Diet: Patient encouraged to increase protein intake while taking caution to avoid high carbohydrate and/or sugar intake. Labs/cultures/imaging: Wound culture 07/30/23 was positive for anearobic bacteria and Enterococcus, treated x 3 weeks with Augmentin, Cultured again and continued Enterococcus and Aneaerobic bacteria 08/27/23. Follow-up: Return in 2 weeks for wound care follow up. Return sooner or report to the emergency room should symptoms worsen, or new symptoms arise. Note: [employer] speech recognition fiber locking supervisor software was used to create portions of this document. Sound-alike and misspelled words, as well as other fiber locking supervisor errors may be contained in the documentation.
== END 2023-09-16 23:59 | disposition home or self-care (01) ==
LOC: WC 09:00
PROVIDERS: PCP Internal Medicine; Referring Provider Internal Medicine; Visit Provider Family Medicine
DX: E11.622 Type 2 diabetes mellitus with other skin ulcer (principal); L98.492 Non-pressure chronic ulcer of skin of other sites with fat layer exposed; M06.9 Rheumatoid arthritis, unspecified; F03.90 Unspecified dementia, unspecified severity, without behavioral disturbance, psychotic disturbance, mood disturbance, and anxiety; E11.40 Type 2 diabetes mellitus with diabetic neuropathy, unspecified; Z79.4 Long term (current) use of insulin; M35.3 Polymyalgia rheumatica; I10 Essential (primary) hypertension
CPT/HCPCS: 87070; 87075; 87077; 87186; 87205; 97597

== ENCOUNTER 2023-10-15 09:00 | Outpatient (RCR) | payer MEDICARE, MEDICAID, SELFPAY ==
[2023-09-17 00:25] VITALS: BP 123/58; PULSE 80; RESP 18; TEMP 36.1; BMI 24.7
[2023-10-01 09:02] VITALS: BP 143/89; PULSE 99; RESP 18; TEMP 35.2; BMI 24.7
--- NOTE | 2023-10-01 14:21 | PN.PCM_ITS ---
History of Present Illness Date of Service: 10/01/23 Chief Complaint: abdominal wall ulcer History of Wound: Stacie is a pleasant 78 yo woman that presents to the wound healing center today for evaluation and treatment for a nonhealing ulcer of her abdominal wall that has been present for approximately 6 months. She is a poor historian due to dementia/cognitive impairment. She resides at an assisted living facility in [facility]. She reports that she has 3 sons. She is unable to tell us if she has had any abdominal surgeries or C-sections but the area where the ulcer is located has the appearance of scar tissue and is at the suprapubic area where an incision for a or panniculectomy could be located. It does have the appearance of an old incision site. No surgical history is available and she denies history. She does have diabetes and reports that she has been obese previously and weighed 260 lbs at one point but is now approx. 140 lb. It looks like she has been treated with Silvadene previously. She had been treated with Keflex. Subjective Subjective Stacie returns today for treatment of a nonhealing ulcer of her left abdominal skin fold. There has been improvement to the ulcer and the lupis-wound is much better. SNF has been dressing the ulcer with Aquacel Ag and ABD twice daily per SEP and applying clotrimazole to periwound. Patient is a poor historian due to dementia. She admits improvement in pain but denies fever, chills, increased drainage or erythema. Wound culture was positive for MRSA, Enterococcus and anaerobic bacteria 08/27/23. Objective Data Objective Data Vital Signs: Vital Signs Temp Pulse Resp BP O2 Del Method 95.3 F L 99 18 143/89 H Room Air 10/01/23 09:02 10/01/23 09:02 10/01/23 09:02 10/01/23 09:02 10/01/23 09:02 Oxygen Delivery Method Room Air Weight: 63.503 kg Body Mass Index (BMI) 24.7 Physical Exam Const alert, oriented x3 and no apparent distress General Appearance: cooperative and comfortable HEENT normocephalic and head/scalp atraumatic Resp normal respiratory effort Effort and Inspection: able to speak in complete sentences Cardio regular rate and regular rhythm Skin General Skin Exam: erythema and dermatitis Wounds: wounds noted Wound Narrative: as in clinical panel Psych mental status grossly normal, thought process normal, cooperative and affect normal Debridement Note Debridement Note Wound debrided: left lateral abdomen Laterality: Left Wound Grade/Stage: Stage 3 Type of Debridement: Selective debridement Anesthesia Used: 4% Lidocaine Solution and 5% Lidocaine Gel Depth: Down to and including healthy tissue and in the subcutaneous layer Percentage of wound debrided: 100 Instrument Used: 5mm curette Tissue Removed: Yellow slough, devitalized tissue Severity: Fat Layer Exposed Amount of bleeding with debridement: Mild Bleeding Controlled with: Compression and gauze Patient tolerated procedure: Patient tolerated procedure well Post-Debridement Measurements and Additional Note: Post-Debridement Measurements/Treatment - Nurse 1 - General Ulcer Assessment Start: 10/01/23 09:02 Freq: Status: Active Protocol: JOSUE Activity Type Activity Date Activity User E-sign Co-sign Detail Recorded Client Recorded Date Recorded By Document 10/01/23 09:02 KW Desktop 10/01/23 09:04 KW 10/01/23 09:02 PATRICIA - Today's Visit Information Type of service Follow-up Visit (Physician/ELECTRIC CLOCK MECHANIC ) Arrival Mode Wheelchair Patient Identification Verified (Name & Yes ) Height and Weight Body Mass Index (BMI) 24.7 BMI Classification Normal Vital Signs Temperature (97.8 F-99.1 F) 95.3 F L Temperature Source Temporal Pulse Rate (60-100) 99 Pulse Location Monitor Respiratory Rate (12-18) 18 Respiratory rate source Observation Oxygen Delivery Method Room Air Blood Pressure (90/60-120/80) 143/89 H Blood Pressure Mean (mm Hg) 107 Source Monitor Position Sitting Blood Pressure Location Left Arm History Since Last Visit- (Skip if this is Patient's initial visit) Have you changed medications since your No last visit? Any new allergies or adverse reactions No Had a fall/change in ADL's that may No increase risk of falls Signs or symptoms of abuse and/or No neglect since last visit Have you been in the hospital since your No last visit? Has dressing in place as prescribed Yes Has compression in place as prescribed N/A Has offloadiing in place as prescribed N/A Experienced any changes in pain level or No management Left Footwear Regular Shoe Right Footwear Regular Shoe Pain Scale: 0-10 Numeric Is Patient Pain Free? No lt abd -Description Burning,Aching -Pain Behavior Moaning,Facial Grimacing - Nurse 1 - General Ulcer Measurement Start: 10/01/23 09:02 Freq: Status: Active Protocol: Activity Type Activity Date Activity User E-sign Co-sign Detail Recorded Client Recorded Date Recorded By Document 10/01/23 09:02 KW Desktop 10/01/23 09:04 10/01/23 09:02 Wound Center Nurse 1 1. L abd fold -Current Size (cm) - Length 0.8 -Current Size (cm) - Width 3 -Current Size (cm) - Depth 0.1 -Total Square Cm 2.4 -Epithelialization Small 1-33% -Exudate Amt Small -Exudate Type Serosanguineous -Wound Margin Distinct, Outline Attached -Granulation Amt Large (67-100%) -Granulation Quality Red -Texture (Lupis-wound Skin Appearance) Assessed -Moisture (Lupis-wound Skin Appearance) Assessed -Color (Lupis-wound Skin Appearance) Assessed, Erythema -Temperature (Lupis-wound Skin No Abnormality Appearance) (Pt Warm) -Tenderness on Palpation (Lupis-wound Yes Skin Appearance) -Ulcer Cleansing Soap and Water -Foul Odor after Cleansing No -Anesthetic Used 5% Lidocaine Gel WC - Nurse 2 - General Ulcer CM Notes Start: 10/01/23 09:02 Freq: Status: Active Protocol: Activity Type Activity Date Activity User E-sign Co-sign Detail Recorded Client Recorded Date Recorded By Document 10/01/23 09:10 Desktop 10/01/23 09:21 10/01/23 09:10 Wound Center Nurse 2 -Time 09:10 -Correct Patient Yes -Correct Side, Site, Position Yes -Correct Procedure Yes -Procedure Performed Yes -Type of Procedure Debridement -Clinical Debridement Subcutaneous -Tissue Removed Subcutaneous -Post Debridement (cm) - Length 0.6 -Post Debridement (cm) - Width 3.5 -Post Debridement (cm) - Depth 0.1 -Total Square (Post) (cm) 2.10 -Area of Debridement (cm) - Length 0.6 -Area of Debridement (cm) - Width 3.5 -Total Square (Area) (cm) 2.10 -Tunneling No -Undermining/Tunneling No -Circular Undermining No -Wound/Ulcer Outcome Not Healed -Ulcer Cleansing Rinsed/ Irrigated with Saline -Foul Odor after Cleansing No -Bioengineered Tissue No -Bleeding Controlled with Pressure -Treatment Response Procedure Tolerated Well -Debridement - Subq, 1st 20sq cm Yes Pain Scale: 0-10 Numeric Is Patient Pain Free? Yes WC - Nurse 3 - General Ulcer D/C NN Start: 10/01/23 09:02 Freq: Status: Active Protocol: Activity Type Activity Date Activity User E-sign Co-sign Detail Recorded Client Recorded Date Recorded By Document 10/01/23 09:26 KW Desktop 10/01/23 09:27 KW 10/01/23 09:26 Wound Care Center Nurse 3 1. L abd fold -Primary Dressing Applied Aquacel Extra -Primary Dressing Covered/Secured with Dry Gauze, Secured with Tape -Aquacel Extra 1 Pain Scale: 0-10 Numeric Is Patient Pain Free? Yes WC - Visit Discharge Discharge Condition Stable Ambulatory Status Wheelchair Medication Reconcilliation completed & No provided to patient/care provider Clinical Summary of Care Provided Yes Assessment/Plan Assessment/Plan (1) HTN (hypertension): CODE(S): I10 - Essential (primary) hypertension QUALIFIERS: Hypertension type: primary hypertension Qualified Code(s): I10 - Essential (primary) hypertension (2) Rheumatoid arthritis: CODE(S): M06.9 - Rheumatoid arthritis, unspecified QUALIFIERS: Rheumatoid arthritis location: multiple sites Rheumatoid factor presence: unspecified presence Qualified Code(s): M06.9 - Rheumatoid arthritis, unspecified (3) Polymyalgia rheumatica: CODE(S): M35.3 - Polymyalgia rheumatica (4) Insulin dependent diabetes mellitus: (5) Neuropathy due to type 2 diabetes mellitus: CODE(S): E11.40 - Type 2 diabetes mellitus with diabetic neuropathy, unspecified (6) Skin ulcer of abdomen with fat layer exposed: CODE(S): L98.492 - Non-pressure chronic ulcer of skin of other sites with fat layer exposed (7) Nonhealing nonsurgical wound with fat layer exposed: CODE(S): T14.8XXA - Other injury of unspecified body region, initial encounter (8) Type 2 diabetes mellitus without complications: CODE(S): E11.9 - Type 2 diabetes mellitus without complications QUALIFIERS: Diabetes mellitus export coordinator insulin use: with care home use Qualified Code(s): E11.9 - Type 2 diabetes mellitus without complications; Z79.4 - retirement (current) use of insulin PLAN: Plan Debridement performed today in clinic as annotated above. At home wound-care instructions: There has been improvement in the erythema but there is odor today. Wash ulcer with soap and water daily and pat dry. Apply Aquacel Extra to wound bed and cover with ABD. Keep dressing clean and dry. Apply Nystatin powder to periwound. Use silicone tape to secure dressings. Diflucan 200 mg once weekly prescribed to treat candidal infection complicating wound healing. Change dressings twice daily due to periwound irritation. Off-loading: The patient was instructed to avoid pressure and friction on the affected areas. Reposition every 2 hours at minimum. Avoid prolonged standing and/or dangling of legs. When seated, feet should be elevated at chest level. Frequent ambulation is encouraged. Diet: Patient encouraged to increase protein intake while taking caution to avoid high carbohydrate and/or sugar intake. Labs/cultures/imaging: Wound culture 07/30/23 was positive for anearobic bacteria and Enterococcus, treated x 3 weeks with Augmentin, Cultured again and continued Enterococcus and Aneaerobic bacteria 08/27/23. Wound culture taken 10/01/23 and will treat based on results. Follow-up: Return in 2 weeks for wound care follow up. Return sooner or report to the emergency room should symptoms worsen, or new symptoms arise. Note: [employer] speech recognition assembler wire mesh gate software was used to create portions of this document. Sound-alike and misspelled words, as well as other assembler wire mesh gate errors may be contained in the documentation.
[2023-10-15 08:50] VITALS: BP 119/50; PULSE 67; RESP 18; TEMP 35.5; BMI 24.7
--- NOTE | 2023-10-15 13:34 | PN.PCM_ITS ---
History of Present Illness Date of Service: 10/15/23 Chief Complaint: abdominal wall ulcer History of Wound: Stacie is a pleasant 78 yo woman that presents to the wound healing center today for evaluation and treatment for a nonhealing ulcer of her abdominal wall that has been present for approximately 6 months. She is a poor historian due to dementia/cognitive impairment. She resides at an assisted living facility in [facility]. She reports that she has 3 sons. She is unable to tell us if she has had any abdominal surgeries or C-sections but the area where the ulcer is located has the appearance of scar tissue and is at the suprapubic area where an incision for a or panniculectomy could be located. It does have the appearance of an old incision site. No surgical history is available and she denies history. She does have diabetes and reports that she has been obese previously and weighed 260 lbs at one point but is now approx. 140 lb. It looks like she has been treated with Silvadene previously. She had been treated with Keflex. Subjective Subjective Stacie returns today for treatment of a nonhealing ulcer of her left abdominal skin fold. There has been improvement to the ulcer and the helio-wound is much better. SNF has been dressing the ulcer with Aquacel Ag and ABD twice daily per SEP and applying clotrimazole to periwound. Patient is a poor historian due to dementia. She admits improvement in pain but denies fever, chills, increased drainage or erythema. Wound culture was positive for MRSA, Enterococcus and Proteus bacteria 10/01/23. Objective Data Objective Data Vital Signs: Vital Signs Temp Pulse Resp BP O2 Del Method 95.9 F L 67 18 119/50 L Room Air 10/15/23 08:50 10/15/23 08:50 10/15/23 08:50 10/15/23 08:50 10/15/23 08:50 Oxygen Delivery Method Room Air Weight: 63.503 kg Body Mass Index (BMI) 24.7 Lab / Micro Data Micro: Microbiology 10/01/23 Unknown Wound - Abdominal Gram Stain - Final 10/01/23 Unknown Wound - Abdominal Wound Culture - Final Proteus mirabilis Enterococcus faecalis Meth. resistant Staph. aureus 10/01/23 Unknown Wound - Abdominal Anaerobic Culture - Final No anaerobic bacteria isolated. Physical Exam Const alert, oriented x3 and no apparent distress General Appearance: cooperative and comfortable HEENT normocephalic and head/scalp atraumatic Resp normal respiratory effort Effort and Inspection: able to speak in complete sentences Cardio regular rate and regular rhythm Skin General Skin Exam: erythema and dermatitis Wounds: wounds noted Wound Narrative: as in clinical panel Psych mental status grossly normal, thought process normal, cooperative and affect normal Debridement Note Debridement Note Wound debrided: left lateral abdomen Laterality: Left Wound Grade/Stage: Stage 3 Type of Debridement: Selective debridement Anesthesia Used: 4% Lidocaine Solution and 5% Lidocaine Gel Depth: Down to and including healthy tissue and in the subcutaneous layer Percentage of wound debrided: 100 Instrument Used: 5mm curette Tissue Removed: Yellow slough, devitalized tissue Severity: Fat Layer Exposed Amount of bleeding with debridement: Mild Bleeding Controlled with: Compression and gauze Patient tolerated procedure: Patient tolerated procedure well Post-Debridement Measurements and Additional Note: Post-Debridement Measurements/Treatment - Nurse 1 - General Ulcer Assessment Start: 10/01/23 09:02 Freq: Status: Active Protocol: JOSUE Activity Type Activity Date Activity User E-sign Co-sign Detail Recorded Client Recorded Date Recorded By Document 10/01/23 09:02 KW Desktop 10/01/23 09:04 KW Document 10/15/23 08:50 KW Desktop 10/15/23 09:00 KW 10/01/23 10/15/23 09:02 08:50 - Today's Visit Information Type of service Follow-up Visit Follow-up Visit (Physician/SUPERVISOR [employer] (Physician/SUPERVIS[employer] ) ) Arrival Mode Wheelchair Ambulatory Patient Identification Verified (Name & Yes Yes ) Height and Weight Body Mass Index (BMI) 24.7 24.7 BMI Classification Normal Normal Vital Signs Temperature (97.8 F-99.1 F) 95.3 F L 95.9 F L Temperature Source Temporal Temporal Pulse Rate (60-100) 99 67 Pulse Location Monitor Monitor Respiratory Rate (12-18) 18 18 Respiratory rate source Observation Observation Oxygen Delivery Method Room Air Room Air Blood Pressure (90/60-120/80) 143/89 H 119/50 L Blood Pressure Mean (mm Hg) 107 73 Source Monitor Monitor Position Sitting Semi-Fowlers Blood Pressure Location Left Arm Left Arm History Since Last Visit- (Skip if this is Patient's initial visit) Have you changed medications since your No No last visit? Any new allergies or adverse reactions No No Had a fall/change in ADL's that may No No increase risk of falls Signs or symptoms of abuse and/or No No neglect since last visit Have you been in the hospital since your No No last visit? Has dressing in place as prescribed Yes Yes Has compression in place as prescribed N/A N/A Has offloadiing in place as prescribed N/A N/A Experienced any changes in pain level or No No management Left Footwear Regular Shoe Regular Shoe Right Footwear Regular Shoe Regular Shoe Pain Scale: 0-10 Numeric Is Patient Pain Free? No Yes lt abd -Description Burning,Aching -Pain Behavior Moaning,Facial Grimacing WC - Nurse 1 - General Ulcer Measurement Start: 10/01/23 09:02 Freq: Status: Active Protocol: Activity Type Activity Date Activity User E-sign Co-sign Detail Recorded Client Recorded Date Recorded By Document 10/01/23 09:02 [employer] 10/01/23 09:04 KW Document 10/15/23 08:50 [employer] 10/15/23 09:00 KW 10/01/23 10/15/23 09:02 08:50 Wound Center Nurse 1 1. L abd fold -Current Size (cm) - Length 0.8 3 -Current Size (cm) - Width 3 0.5 -Current Size (cm) - Depth 0.1 0.2 -Total Square Cm 2.4 1.5 -Epithelialization Small 1-33% -Exudate Amt Small Small -Exudate Type Serosanguineous Serosanguineous -Wound Margin Distinct, Distinct, Outline Outline Attached Attached -Granulation Amt Large (67-100%) Large (67-100%) -Granulation Quality Red Red -Texture (Helio-wound Skin Appearance) Assessed Assessed -Moisture (Helio-wound Skin Appearance) Assessed Assessed -Color (Helio-wound Skin Appearance) Assessed, Assessed, Erythema Erythema -Temperature (Helio-wound Skin No Abnormality No Abnormality Appearance) (Pt Warm) (Pt Warm) -Tenderness on Palpation (Helio-wound Yes Skin Appearance) -Ulcer Cleansing Soap and Water Soap and Water -Foul Odor after Cleansing No No -Anesthetic Used 5% Lidocaine 4% Lidocaine Gel Solution WC - Nurse 2 - General Ulcer CM Notes Start: 10/01/23 09:02 Freq: Status: Active Protocol: Activity Type Activity Date Activity User E-sign Co-sign Detail Recorded Client Recorded Date Recorded By Document 10/01/23 09:10 GM Desktop 10/01/23 09:21 GM Document 10/15/23 09:20 GM Desktop 10/15/23 09:25 GM 10/01/23 10/15/23 09:10 09:20 Wound Center Nurse 2 1. L abd fold -Time 09:10 09:20 -Correct Patient Yes Yes -Correct Side, Site, Position Yes Yes -Correct Procedure Yes Yes -Procedure Performed Yes Yes -Type of Procedure Debridement Debridement -Clinical Debridement Subcutaneous Epidermis / Dermis -Tissue Removed Subcutaneous Epidermis -Post Debridement (cm) - Length 0.6 -Post Debridement (cm) - Width 3.5 -Post Debridement (cm) - Depth 0.1 -Total Square (Post) (cm) 2.10 -Area of Debridement (cm) - Length 0.6 -Area of Debridement (cm) - Width 3.5 -Total Square (Area) (cm) 2.10 -Tunneling No No -Undermining/Tunneling No No -Circular Undermining No No -Wound/Ulcer Outcome Not Healed Not Healed -Ulcer Cleansing Rinsed/ Rinsed/ Irrigated with Irrigated with Saline Saline -Foul Odor after Cleansing No -Bioengineered Tissue No -Bleeding Controlled with Pressure Pressure -Treatment Response Procedure Procedure Tolerated Well Tolerated Well -Debridement - Open, 1st 20sq cm Yes -Debridement - Subq, 1st 20sq cm Yes No Pain Scale: 0-10 Numeric Is Patient Pain Free? Yes Yes - Nurse 3 - General Ulcer D/C NN Start: 10/01/23 09:02 Freq: Status: Active Protocol: Activity Type Activity Date Activity User E-sign Co-sign Detail Recorded Client Recorded Date Recorded By Document 10/01/23 09:26 KW Desktop 10/01/23 09:27 KW Document 10/15/23 09:40 DL Desktop 10/15/23 09:41 DL 10/01/23 10/15/23 09:26 09:40 Wound Care Center Nurse 3 1. L abd fold -Ulcer Cleansing Rinsed/ Irrigated with Saline -Foul Odor after Cleansing No -Primary Dressing Applied Aquacel Extra Aquacel Extra -Primary Dressing Covered/Secured with Dry Gauze, Dry Gauze, Secured with Secured with Tape Tape -Aquacel Extra 1 1 Treatment Response Procedure Tolerated Well Pain Scale: 0-10 Numeric Is Patient Pain Free? Yes Yes WC - Visit Discharge Discharge Condition Stable Stable Ambulatory Status Wheelchair Wheelchair Transportation caregiver/ECF Medication Reconcilliation completed & No provided to patient/care provider Clinical Summary of Care Provided Yes Facility Type Quality Rep Care Facility Orders Sent Yes Assessment/Plan Assessment/Plan (1) HTN (hypertension): CODE(S): I10 - Essential (primary) hypertension QUALIFIERS: Hypertension type: primary hypertension Qualified Code(s): I10 - Essential (primary) hypertension (2) Rheumatoid arthritis: CODE(S): M06.9 - Rheumatoid arthritis, unspecified QUALIFIERS: Rheumatoid arthritis location: multiple sites Rheumatoid factor presence: unspecified presence Qualified Code(s): M06.9 - Rheumatoid arthritis, unspecified (3) Polymyalgia rheumatica: CODE(S): M35.3 - Polymyalgia rheumatica (4) Insulin dependent diabetes mellitus: (5) Neuropathy due to type 2 diabetes mellitus: CODE(S): E11.40 - Type 2 diabetes mellitus with diabetic neuropathy, unspecified (6) Skin ulcer of abdomen with fat layer exposed: CODE(S): L98.492 - Non-pressure chronic ulcer of skin of other sites with fat layer exposed (7) Nonhealing nonsurgical wound with fat layer exposed: CODE(S): T14.8XXA - Other injury of unspecified body region, initial encounter (8) Type 2 diabetes mellitus without complications: CODE(S): E11.9 - Type 2 diabetes mellitus without complications QUALIFIERS: Diabetes mellitus longwall foreman insulin use: with longwall foreman use Qualified Code(s): E11.9 - Type 2 diabetes mellitus without complications; Z79.4 - termite helper (current) use of insulin PLAN: Plan Debridement performed today in clinic as annotated above. At home wound-care instructions: There has been improvement in the erythema but there is odor today. Wash ulcer with soap and water daily and pat dry. Apply Aquacel Extra to wound bed and cover with ABD. Keep dressing clean and dry. Apply Nystatin powder to periwound. Use silicone tape to secure dressings. Diflucan 200 mg once weekly prescribed to treat candidal infection complicating wound healing. Change dressings twice daily due to periwound irritation. Off-loading: The patient was instructed to avoid pressure and friction on the affected areas. Reposition every 2 hours at minimum. Avoid prolonged standing and/or dangling of legs. When seated, feet should be elevated at chest level. Frequent ambulation is encouraged. Diet: Patient encouraged to increase protein intake while taking caution to avoid high carbohydrate and/or sugar intake. Labs/cultures/imaging: Wound culture 07/30/23 was positive for anearobic bacteria and Enterococcus, treated x 3 weeks with Augmentin, Cultured again and continued Enterococcus and Aneaerobic bacteria 08/27/23. Wound culture taken 10/01/23 and was positive for Proteus, Enterococcus, and MRSA and she was treated with Augmentin and Bactrim. Follow-up: Return in 2 weeks for wound care follow up. Return sooner or report to the emergency room should symptoms worsen, or new symptoms arise. Note: [employer] speech recognition school curriculum developer software was used to create portions of this document. Sound-alike and misspelled words, as well as other school curriculum developer errors may be contained in the documentation.
== END 2023-10-17 23:59 | disposition home or self-care (01) ==
LOC: WC 09:00
PROVIDERS: PCP Internal Medicine; Referring Provider Internal Medicine; Visit Provider Family Medicine
DX: L98.492 Non-pressure chronic ulcer of skin of other sites with fat layer exposed (principal); E11.622 Type 2 diabetes mellitus with other skin ulcer; M06.9 Rheumatoid arthritis, unspecified; E11.40 Type 2 diabetes mellitus with diabetic neuropathy, unspecified; Z79.4 Long term (current) use of insulin; M35.3 Polymyalgia rheumatica; I10 Essential (primary) hypertension; B95.62 Methicillin resistant Staphylococcus aureus infection as the cause of diseases classified elsewhere; B95.2 Enterococcus as the cause of diseases classified elsewhere; B96.4 Proteus (mirabilis) (morganii) as the cause of diseases classified elsewhere
CPT/HCPCS: 11042; 87070; 87075; 87077; 87186; 87205; 97597

== ENCOUNTER 2023-11-12 09:00 | Outpatient (RCR) | payer MEDICARE, MEDICAID, SELFPAY ==
[2023-10-18 00:21] VITALS: BP 119/50; PULSE 67; RESP 18; TEMP 35.5; BMI 24.7
[2023-10-29 09:03] VITALS: BP 177/72; PULSE 97; RESP 18; TEMP 35.3; BMI 24.7
--- NOTE | 2023-10-29 13:29 | PCM.WC.PN ---
History of Present Illness Date of Service: 10/29/23 Chief Complaint: abdominal wall ulcer History of Wound: Stacie is a pleasant 78 yo woman that presents to the wound healing center today for evaluation and treatment for a nonhealing ulcer of her abdominal wall that has been present for approximately 6 months. She is a poor historian due to dementia/cognitive impairment. She resides at an assisted living facility in [facility]. She reports that she has 3 sons. She is unable to tell us if she has had any abdominal surgeries or C-sections but the area where the ulcer is located has the appearance of scar tissue and is at the suprapubic area where an incision for a or panniculectomy could be located. It does have the appearance of an old incision site. No surgical history is available and she denies history. She does have diabetes and reports that she has been obese previously and weighed 260 lbs at one point but is now approx. 140 lb. It looks like she has been treated with Silvadene previously. She had been treated with Keflex. Subjective Subjective Stacie returns today for treatment of a nonhealing ulcer of her left abdominal skin fold. There has been improvement to the ulcer and the lupis-wound is much better. SNF has been dressing the ulcer with Aquacel Ag and ABD twice daily per SEP and applying clotrimazole to periwound. Patient is a poor historian due to dementia. She admits improvement in pain but denies fever, chills, increased drainage or erythema. Wound culture was positive for MRSA, Enterococcus and Proteus bacteria 10/01/23. Objective Data Objective Data Vital Signs: Vital Signs Temp Pulse Resp BP 95.5 F L 97 18 177/72 H 10/29/23 09:03 10/29/23 09:03 10/29/23 09:03 10/29/23 09:03 Weight: 63.503 kg Body Mass Index (BMI) 24.7 Physical Exam Const alert, oriented x3 and no apparent distress General Appearance: cooperative and comfortable HEENT normocephalic and head/scalp atraumatic Resp normal respiratory effort Effort and Inspection: able to speak in complete sentences Cardio regular rate and regular rhythm Skin General Skin Exam: erythema and dermatitis Wounds: wounds noted Wound Narrative: as in clinical panel Psych mental status grossly normal, thought process normal, cooperative and affect normal Debridement Note Debridement Note Wound debrided: left lateral abdomen Laterality: Left Wound Grade/Stage: Stage 3 Type of Debridement: Excisional debridement Anesthesia Used: 4% Lidocaine Solution and 5% Lidocaine Gel Depth: Down to and including healthy tissue and in the subcutaneous layer Percentage of wound debrided: 100 Instrument Used: 3mm curette Tissue Removed: Yellow slough, devitalized tissue Severity: Fat Layer Exposed Amount of bleeding with debridement: Mild Bleeding Controlled with: Compression and gauze Patient tolerated procedure: Patient tolerated procedure well Post-Debridement Measurements and Additional Note: Post-Debridement Measurements/Treatment WC - Nurse 1 - General Ulcer Assessment Start: 10/29/23 09:03 Freq: Status: Active Protocol: JOSUE Activity Type Activity Date Activity User E-sign Co-sign Detail Recorded Client Recorded Date Recorded By Document 10/29/23 09:03 RB Desktop 10/29/23 09:05 RB 10/29/23 09:03 WC - Today's Visit Information Type of service Follow-up Visit (Physician/MANAGER ADULT ) Arrival Mode Wheelchair Transfer Assistance None Patient Identification Verified (Name & Yes ) Patient Requires Transmission-Based No Precautions Height and Weight Body Mass Index (BMI) 24.7 BMI Classification Normal Vital Signs Temperature (97.8 F-99.1 F) 95.5 F L Temperature Source Temporal Pulse Rate (60-100) 97 Pulse Location Monitor Respiratory Rate (12-18) 18 Respiratory rate source Observation Blood Pressure (90/60-120/80) 177/72 H Blood Pressure Mean (mm Hg) 107 Source Monitor Position Semi-Fowlers Blood Pressure Location Left Arm History Since Last Visit- (Skip if this is Patient's initial visit) Have you changed medications since your No last visit? Any new allergies or adverse reactions No Had a fall/change in ADL's that may No increase risk of falls Signs or symptoms of abuse and/or No neglect since last visit Have you been in the hospital since your No last visit? Has dressing in place as prescribed Yes Has compression in place as prescribed No Has offloadiing in place as prescribed No Experienced any changes in pain level or No management Pain Scale: 0-10 Numeric Is Patient Pain Free? Yes PATRICIA - Nurse 1 - General Ulcer Measurement Start: 10/29/23 09:03 Freq: Status: Active Protocol: Activity Type Activity Date Activity User E-sign Co-sign Detail Recorded Client Recorded Date Recorded By Document 10/29/23 09:03 RB Desktop 10/29/23 09:05 RB 10/29/23 09:03 Wound Center Nurse 1 1. L abd fold -Combined with other wound No -Current Size (cm) - Length 0.7 -Current Size (cm) - Width 5.5 -Current Size (cm) - Depth 0.1 -Total Square Cm 3.85 -Tunneling No -Undermining/Tunneling No -Circular Undermining No -Exudate Amt Medium -Exudate Type Serosanguineous -Wound Margin Distinct, Outline Attached -Granulation Amt Medium (34-66%) -Granulation Quality [place] -Slough/Fibrin Yes -Necrosis Amt Medium (34-66%) -Necrotic Tissue Type Adherent Slough -Structure Exposed N/A -Texture (Lupis-wound Skin Appearance) Assessed, Excoriation, Rash -Moisture (Lupis-wound Skin Appearance) Assessed -Color (Lupis-wound Skin Appearance) Assessed,Rubor -Temperature (Lupis-wound Skin No Abnormality Appearance) (Pt Warm) -Tenderness on Palpation (Lupis-wound No Skin Appearance) -Ulcer Cleansing Wound Cleanser -Foul Odor after Cleansing No -Anesthetic Used 4% Lidocaine Solution WC - Nurse 2 - General Ulcer CM Notes Start: 10/29/23 09:03 Freq: Status: Active Protocol: Activity Type Activity Date Activity User E-sign Co-sign Detail Recorded Client Recorded Date Recorded By Document 10/29/23 09:18 Desktop 10/29/23 09:33 10/29/23 09:18 Wound Center Nurse 2 -Time 09:18 -Correct Patient Yes -Correct Side, Site, Position Yes -Correct Procedure Yes -Procedure Performed Yes -Type of Procedure Debridement -Tissue Removed Epidermis, Subcutaneous -Post Debridement (cm) - Length 2.5 -Post Debridement (cm) - Width 0.5 -Post Debridement (cm) - Depth 0.1 -Total Square (Post) (cm) 1.25 -Area of Debridement (cm) - Length 2.5 -Area of Debridement (cm) - Width 0.5 -Total Square (Area) (cm) 1.25 -Tunneling No -Undermining/Tunneling No -Circular Undermining No -Wound/Ulcer Outcome Not Healed -Ulcer Cleansing Wound Cleanser -Foul Odor after Cleansing No -Bioengineered Tissue No -Bleeding Controlled with Pressure -Treatment Response Procedure Tolerated Well -Debridement - Subq, 1st 20sq cm No -Apply Skin Sub - 1st 25 sq cm - Legs 1 -Epifix (per sq cm) 4 Pain Scale: 0-10 Numeric Is Patient Pain Free? Yes - Nurse 3 - General Ulcer D/C NN Start: 10/29/23 09:03 Freq: Status: Active Protocol: Activity Type Activity Date Activity User E-sign Co-sign Detail Recorded Client Recorded Date Recorded By Document 10/29/23 09:41 PA Desktop 10/29/23 09:42 PA 10/29/23 09:41 Wound Care Center Nurse 3 1. L abd fold -Primary Dressing Applied Aquacel Extra -Other Dressing steri strips placed -Aquacel Extra 1 Pain Scale: 0-10 Numeric Is Patient Pain Free? Yes WC - Visit Discharge Discharge Condition Stable Ambulatory Status Wheelchair Medication Reconcilliation completed & No provided to patient/care provider Clinical Summary of Care Provided Yes Notes: pt lives at [facility] Assessment/Plan Assessment/Plan (1) HTN (hypertension): CODE(S): I10 - Essential (primary) hypertension QUALIFIERS: Hypertension type: primary hypertension Qualified Code(s): I10 - Essential (primary) hypertension (2) Rheumatoid arthritis: CODE(S): M06.9 - Rheumatoid arthritis, unspecified QUALIFIERS: Rheumatoid arthritis location: multiple sites Rheumatoid factor presence: unspecified presence Qualified Code(s): M06.9 - Rheumatoid arthritis, unspecified (3) Polymyalgia rheumatica: CODE(S): M35.3 - Polymyalgia rheumatica (4) Insulin dependent diabetes mellitus: (5) Neuropathy due to type 2 diabetes mellitus: CODE(S): E11.40 - Type 2 diabetes mellitus with diabetic neuropathy, unspecified (6) Skin ulcer of abdomen with fat layer exposed: CODE(S): L98.492 - Non-pressure chronic ulcer of skin of other sites with fat layer exposed (7) Nonhealing nonsurgical wound with fat layer exposed: CODE(S): T14.8XXA - Other injury of unspecified body region, initial encounter (8) Type 2 diabetes mellitus without complications: CODE(S): E11.9 - Type 2 diabetes mellitus without complications QUALIFIERS: Diabetes mellitus [facility] insulin use: with [facility] use Qualified Code(s): E11.9 - Type 2 diabetes mellitus without complications; Z79.4 - extermination inspector (current) use of insulin PLAN: Plan Debridement performed today in clinic as annotated above. At home wound-care instructions: There has been improvement overall in her ulcer. Epifix #1 applied today to ulcer, rehydrated with saline and covered with wound veil and secured with steri strips. This will stay in place and an outer dressing of Aquacel Extra and ABD will be changed daily for heavy drainage. Due to the poor progression of the healing of her ulcer, advanced wound care product application with Epifix is medically necessary to heal her ulcer. Infection has been resolved and we have received insurance approval for application of Epifix to heal her abdominal ulcer. Off-loading: The patient was instructed to avoid pressure and friction on the affected areas. Reposition every 2 hours at minimum. Avoid prolonged standing and/or dangling of legs. When seated, feet should be elevated at chest level. Frequent ambulation is encouraged. Diet: Patient encouraged to increase protein intake while taking caution to avoid high carbohydrate and/or sugar intake. Labs/cultures/imaging: Wound culture 07/30/23 was positive for anearobic bacteria and Enterococcus, treated x 3 weeks with Augmentin, Cultured again and continued Enterococcus and Aneaerobic bacteria 08/27/23. Wound culture taken 10/01/23 and was positive for Proteus, Enterococcus, and MRSA and she was treated with Augmentin and Bactrim. Follow-up: Return in 2 weeks for wound care follow up. Return sooner or report to the emergency room should symptoms worsen, or new symptoms arise. Note: [employer] speech recognition tuber helper software was used to create portions of this document. Sound-alike and misspelled words, as well as other tuber helper errors may be contained in the documentation.
[2023-11-12 08:59] VITALS: BP 148/76; PULSE 95; RESP 18; TEMP 36; BMI 24.7
--- NOTE | 2023-11-12 14:06 | PN.PCM_ITS ---
History of Present Illness Date of Service: 11/12/23 Chief Complaint: abdominal wall ulcer History of Wound: Stacie is a pleasant 78 yo woman that presents to the wound healing center today for evaluation and treatment for a nonhealing ulcer of her abdominal wall that has been present for approximately 6 months. She is a poor historian due to dementia/cognitive impairment. She resides at an assisted living facility in [facility]. She reports that she has 3 sons. She is unable to tell us if she has had any abdominal surgeries or C-sections but the area where the ulcer is located has the appearance of scar tissue and is at the suprapubic area where an incision for a or panniculectomy could be located. It does have the appearance of an old incision site. No surgical history is available and she denies history. She does have diabetes and reports that she has been obese previously and weighed 260 lbs at one point but is now approx. 140 lb. It looks like she has been treated with Silvadene previously. She had been treated with Keflex. Subjective Subjective Stacie returns today for treatment of a nonhealing ulcer of her left abdominal skin fold. There has been improvement to the ulcer and the lupis-wound is much better. SNF has been dressing the ulcer with Aquacel Ag and ABD and Epifix remained in place for 2 weeks. Patient is a poor historian due to dementia. She admits improvement in pain but denies fever, chills, increased drainage or erythema. Wound culture was positive for MRSA, Enterococcus and Proteus bacteria 10/01/23. Objective Data Objective Data Vital Signs: Vital Signs Temp Pulse Resp BP 96.8 F L 95 18 148/76 H 11/12/23 08:59 11/12/23 08:59 11/12/23 08:59 11/12/23 08:59 Weight: 63.503 kg Body Mass Index (BMI) 24.7 Physical Exam Const alert, oriented x3 and no apparent distress General Appearance: cooperative and comfortable HEENT normocephalic and head/scalp atraumatic Resp normal respiratory effort Effort and Inspection: able to speak in complete sentences Cardio regular rate and regular rhythm Skin General Skin Exam: erythema and dermatitis Wounds: wounds noted Wound Narrative: as in clinical panel Psych mental status grossly normal, thought process normal, cooperative and affect normal Debridement Note Debridement Note Wound debrided: left lateral abdomen Laterality: Left Wound Grade/Stage: Stage 3 Type of Debridement: Selective debridement Anesthesia Used: 4% Lidocaine Solution and 5% Lidocaine Gel Depth: Down to and including healthy tissue and in the subcutaneous layer Percentage of wound debrided: 100 Instrument Used: 3mm curette Tissue Removed: Yellow slough, devitalized tissue Severity: Fat Layer Exposed Amount of bleeding with debridement: Mild Bleeding Controlled with: Compression and gauze Patient tolerated procedure: Patient tolerated procedure well Post-Debridement Measurements and Additional Note: Post-Debridement Measurements/Treatment - Nurse 1 - General Ulcer Assessment Start: 10/29/23 09:03 Freq: Status: Active Protocol: [email or web address] Activity Type Activity Date Activity User E-sign Co-sign Detail Recorded Client Recorded Date Recorded By Document 10/29/23 09:03 RB Desktop 10/29/23 09:05 RB Document 11/12/23 08:59 RB Desktop 11/12/23 09:00 RB 10/29/23 11/12/23 09:03 08:59 - Today's Visit Information Type of service Follow-up Visit Follow-up Visit (Physician/EXECUTIVE CHEF ASSISTANT (Physician/EXECUTIVE CHEF ASSISTANT ) ) Arrival Mode Wheelchair Wheelchair Transfer Assistance None Manual Patient Identification Verified (Name & Yes Yes ) Patient Requires Transmission-Based No Precautions Height and Weight Body Mass Index (BMI) 24.7 24.7 BMI Classification Normal Normal Vital Signs Temperature (97.8 F-99.1 F) 95.5 F L 96.8 F L Temperature Source Temporal Temporal Pulse Rate (60-100) 97 95 Pulse Location Monitor Monitor Respiratory Rate (12-18) 18 18 Respiratory rate source Observation Observation Blood Pressure (90/60-120/80) 177/72 H 148/76 H Blood Pressure Mean (mm Hg) 107 100 Source Monitor Monitor Position Semi-Fowlers Semi-Fowlers Blood Pressure Location Left Arm Left Arm History Since Last Visit- (Skip if this is Patient's initial visit) Have you changed medications since your No No last visit? Any new allergies or adverse reactions No No Had a fall/change in ADL's that may No No increase risk of falls Signs or symptoms of abuse and/or No No neglect since last visit Have you been in the hospital since your No No last visit? Has dressing in place as prescribed Yes Yes Has compression in place as prescribed No No Has offloadiing in place as prescribed No No Experienced any changes in pain level or No No management Pain Scale: 0-10 Numeric Is Patient Pain Free? Yes Yes WC - Nurse 1 - General Ulcer Measurement Start: 10/29/23 09:03 Freq: Status: Active Protocol: Activity Type Activity Date Activity User E-sign Co-sign Detail Recorded Client Recorded Date Recorded By Document 10/29/23 09:03 RB Desktop 10/29/23 09:05 RB Document 11/12/23 08:59 RB Desktop 11/12/23 09:00 RB 10/29/23 11/12/23 09:03 08:59 Wound Center Nurse 1 1. L abd fold -Combined with other wound No No -Current Size (cm) - Length 0.7 5.5 -Current Size (cm) - Width 5.5 0.5 -Current Size (cm) - Depth 0.1 0.1 -Total Square Cm 3.85 2.75 -Tunneling No No -Undermining/Tunneling No No -Circular Undermining No No -Exudate Amt Medium Medium -Exudate Type Serosanguineous Serosanguineous -Wound Margin Distinct, Distinct, Outline Outline Attached Attached -Granulation Amt Medium (34-66%) Medium (34-66%) -Granulation Quality Southside Place Southside Place -Slough/Fibrin Yes Yes -Necrosis Amt Medium (34-66%) Medium (34-66%) -Necrotic Tissue Type Adherent Slough Adherent Slough -Structure Exposed N/A N/A -Texture (Lupis-wound Skin Appearance) Assessed, Assessed, Excoriation, Scarring Rash -Moisture (Lupis-wound Skin Appearance) Assessed Assessed -Color (Lupis-wound Skin Appearance) Assessed,Rubor Assessed -Temperature (Lupis-wound Skin No Abnormality No Abnormality Appearance) (Pt Warm) (Pt Warm) -Tenderness on Palpation (Lupis-wound No No Skin Appearance) -Ulcer Cleansing Wound Cleanser Wound Cleanser -Foul Odor after Cleansing No No -Anesthetic Used 4% Lidocaine 5% Lidocaine Solution Gel PATRICIA - Nurse 2 - General Ulcer CM Notes Start: 10/29/23 09:03 Freq: Status: Active Protocol: Activity Type Activity Date Activity User E-sign Co-sign Detail Recorded Client Recorded Date Recorded By Document 10/29/23 09:18 Desktop 10/29/23 09:33 Document 11/12/23 09:30 Desktop 11/12/23 09:33 10/29/23 11/12/23 09:18 09:30 Wound Center Nurse 2 1. L ciarra fold -Time 09:18 09:30 -Correct Patient Yes Yes -Correct Side, Site, Position Yes Yes -Correct Procedure Yes Yes -Procedure Performed Yes Yes -Type of Procedure Debridement Debridement -Clinical Debridement Epidermis / Dermis -Tissue Removed Epidermis, Epidermis Subcutaneous -Post Debridement (cm) - Length 2.5 0.6 -Post Debridement (cm) - Width 0.5 1.8 -Post Debridement (cm) - Depth 0.1 0.1 -Total Square (Post) (cm) 1.25 1.08 -Area of Debridement (cm) - Length 2.5 0.6 -Area of Debridement (cm) - Width 0.5 1.8 -Total Square (Area) (cm) 1.25 1.08 -Tunneling No No -Undermining/Tunneling No No -Circular Undermining No No -Wound/Ulcer Outcome Not Healed Not Healed -Ulcer Cleansing Wound Cleanser Rinsed/ Irrigated with Saline -Foul Odor after Cleansing No No -Bioengineered Tissue No Yes -Type of Bioengineered Tissue Epifix -Expiration Date 06/18/28 -Product Lot Number [id number] -Percent Used 100 -Lot number of Saline Used [id number] -Bleeding Controlled with Pressure Pressure -Treatment Response Procedure Tolerated Well -Offloading No -Debridement - Open, 1st 20sq cm No -Debridement - Subq, 1st 20sq cm No -Apply Skin Sub - 1st 25 sq cm - Legs 1 -Epifix (per sq cm) 4 4 Pain Scale: 0-10 Numeric Is Patient Pain Free? Yes Yes - Nurse 3 - General Ulcer D/C NN Start: 10/29/23 09:03 Freq: Status: Active Protocol: Activity Type Activity Date Activity User E-sign Co-sign Detail Recorded Client Recorded Date Recorded By Document 10/29/23 09:41 MT Desktop 10/29/23 09:42 MT Document 11/12/23 09:39 KW Desktop 11/12/23 09:39 KW 10/29/23 11/12/23 09:41 09:39 Wound Care Center Nurse 3 1. L abd fold -Primary Dressing Applied Aquacel Extra Aquacel Extra -Other Dressing steri strips placed -Primary Dressing Covered/Secured with Dry Gauze, Secured with Tape -Aquacel Extra 1 1 Pain Scale: 0-10 Numeric Is Patient Pain Free? Yes Yes WC - Visit Discharge Discharge Condition Stable Stable Ambulatory Status Wheelchair Wheelchair Medication Reconcilliation completed & No No provided to patient/care provider Clinical Summary of Care Provided Yes Yes Notes: pt lives at [facility] Assessment/Plan Assessment/Plan (1) HTN (hypertension): CODE(S): I10 - Essential (primary) hypertension QUALIFIERS: Hypertension type: primary hypertension Qualified Code(s): I10 - Essential (primary) hypertension (2) Rheumatoid arthritis: CODE(S): M06.9 - Rheumatoid arthritis, unspecified QUALIFIERS: Rheumatoid arthritis location: multiple sites Rheumatoid factor presence: unspecified presence Qualified Code(s): M06.9 - Rheumatoid arthritis, unspecified (3) Polymyalgia rheumatica: CODE(S): M35.3 - Polymyalgia rheumatica (4) Insulin dependent diabetes mellitus: (5) Neuropathy due to type 2 diabetes mellitus: CODE(S): E11.40 - Type 2 diabetes mellitus with diabetic neuropathy, unspecified (6) Skin ulcer of abdomen with fat layer exposed: CODE(S): L98.492 - Non-pressure chronic ulcer of skin of other sites with fat layer exposed (7) Nonhealing nonsurgical wound with fat layer exposed: CODE(S): T14.8XXA - Other injury of unspecified body region, initial encounter (8) Type 2 diabetes mellitus without complications: CODE(S): E11.9 - Type 2 diabetes mellitus without complications QUALIFIERS: Diabetes mellitus senior living insulin use: with senior living use Qualified Code(s): E11.9 - Type 2 diabetes mellitus without complications; Z79.4 - nursing home (current) use of insulin PLAN: Plan Debridement performed today in clinic as annotated above. At home wound-care instructions: There has been improvement overall in her ulcer. Epifix #2 applied today to ulcer, rehydrated with saline and covered with wound veil and secured with steri strips. This will stay in place and an outer dressing of Aquacel Extra and ABD will be changed daily for heavy drainage. Due to the poor progression of the healing of her ulcer, advanced wound care product application with Epifix is medically necessary to heal her ulcer. Infection has been resolved and we have received insurance approval for application of Epifix to heal her abdominal ulcer. Off-loading: The patient was instructed to avoid pressure and friction on the affected areas. Reposition every 2 hours at minimum. Avoid prolonged standing and/or dangling of legs. When seated, feet should be elevated at chest level. Frequent ambulation is encouraged. Diet: Patient encouraged to increase protein intake while taking caution to avoid high carbohydrate and/or sugar intake. Labs/cultures/imaging: Wound culture 07/30/23 was positive for anearobic bacteria and Enterococcus, treated x 3 weeks with Augmentin, Cultured again and continued Enterococcus and Aneaerobic bacteria 08/27/23. Wound culture taken 10/01/23 and was positive for Proteus, Enterococcus, and MRSA and she was treated with Augmentin and Bactrim. Follow-up: Return in 2 weeks for wound care follow up. Return sooner or report to the emergency room should symptoms worsen, or new symptoms arise. Note: [employer] speech recognition nurse aide evaluator software was used to create portions of this document. Sound-alike and misspelled words, as well as other nurse aide evaluator errors may be contained in the documentation.
== END 2023-11-16 23:59 | disposition home or self-care (01) ==
LOC: WC 09:00
PROVIDERS: PCP Internal Medicine; Referring Provider Internal Medicine; Visit Provider Family Medicine
DX: E11.622 Type 2 diabetes mellitus with other skin ulcer (principal); L98.492 Non-pressure chronic ulcer of skin of other sites with fat layer exposed; M06.9 Rheumatoid arthritis, unspecified; F03.90 Unspecified dementia, unspecified severity, without behavioral disturbance, psychotic disturbance, mood disturbance, and anxiety; E11.40 Type 2 diabetes mellitus with diabetic neuropathy, unspecified; Z79.4 Long term (current) use of insulin; R41.89 Other symptoms and signs involving cognitive functions and awareness; I10 Essential (primary) hypertension; Z86.14 Personal history of Methicillin resistant Staphylococcus aureus infection
CPT/HCPCS: 15271; Q4186

== ENCOUNTER 2023-12-10 09:00 | Outpatient (RCR) | payer MEDICARE, MEDICAID, SELFPAY ==
[2023-11-17 00:16] VITALS: BP 148/76; PULSE 95; RESP 18; TEMP 36; BMI 24.7
[2023-11-26 09:08] VITALS: BP 130/64; PULSE 82; RESP 20; TEMP 35.4; BMI 24.7
--- NOTE | 2023-11-26 13:10 | PN.PCM_ITS ---
History of Present Illness Date of Service: 11/26/23 Chief Complaint: abdominal wall ulcer History of Wound: Stacie is a pleasant 78 yo woman that presents to the wound healing center today for evaluation and treatment for a nonhealing ulcer of her abdominal wall that has been present for approximately 6 months. She is a poor historian due to dementia/cognitive impairment. She resides at an assisted living facility in [facility]. She reports that she has 3 sons. She is unable to tell us if she has had any abdominal surgeries or C-sections but the area where the ulcer is located has the appearance of scar tissue and is at the suprapubic area where an incision for a or panniculectomy could be located. It does have the appearance of an old incision site. No surgical history is available and she denies history. She does have diabetes and reports that she has been obese previously and weighed 260 lbs at one point but is now approx. 140 lb. It looks like she has been treated with Silvadene previously. She had been treated with Keflex. Subjective Subjective Stacie returns today for treatment of a nonhealing ulcer of her left abdominal skin fold. There has been improvement to the ulcer and the lupis-wound is much better. SNF has been dressing the ulcer with Aquacel Ag and ABD and Epifix remained in place for 2 weeks. Patient is a poor historian due to dementia. She admits improvement in pain but denies fever, chills, increased drainage or erythema. Wound culture was positive for MRSA, Enterococcus and Proteus bacteria 10/01/23. Objective Data Objective Data Vital Signs: Vital Signs Temp Pulse Resp BP 95.8 F L 82 20 H 130/64 H 11/26/23 09:08 11/26/23 09:08 11/26/23 09:08 11/26/23 09:08 Weight: 63.503 kg Body Mass Index (BMI) 24.7 Physical Exam Const alert, oriented x3 and no apparent distress General Appearance: cooperative and comfortable HEENT normocephalic and head/scalp atraumatic Resp normal respiratory effort Effort and Inspection: able to speak in complete sentences Cardio regular rate and regular rhythm Skin General Skin Exam: erythema and dermatitis Wounds: wounds noted Wound Narrative: as in clinical panel Psych mental status grossly normal, thought process normal, cooperative and affect normal Debridement Note Debridement Note Wound debrided: left lateral abdomen Laterality: Left Wound Grade/Stage: Stage 3 Type of Debridement: Selective debridement Anesthesia Used: 4% Lidocaine Solution and 5% Lidocaine Gel Depth: Down to and including healthy tissue and in the subcutaneous layer Percentage of wound debrided: 100 Instrument Used: 3mm curette Tissue Removed: Yellow slough, devitalized tissue Severity: Fat Layer Exposed Amount of bleeding with debridement: Mild Bleeding Controlled with: Compression and gauze Patient tolerated procedure: Patient tolerated procedure well Post-Debridement Measurements and Additional Note: Post-Debridement Measurements/Treatment - Nurse 1 - General Ulcer Assessment Start: 11/26/23 08:59 Freq: Status: Active Protocol: JOSUE Activity Type Activity Date Activity User E-sign Co-sign Detail Recorded Client Recorded Date Recorded By Document 11/26/23 09:08 DL Desktop 11/26/23 09:12 DL 11/26/23 09:08 WC - Today's Visit Information Type of service Follow-up Visit (Physician/RECREATIONAL RESORT MANAGER ) Arrival Mode Wheelchair Transfer Assistance Manual Transfer Assist (Other) x2 Patient Identification Verified (Name & Yes ) Patient Requires Transmission-Based No Precautions Height and Weight Body Mass Index (BMI) 24.7 BMI Classification Normal Vital Signs Temperature (97.8 F-99.1 F) 95.8 F L Temperature Source Temporal Pulse Rate (60-100) 82 Pulse Location Monitor Respiratory Rate (12-18) 20 H Respiratory rate source Observation Blood Pressure (90/60-120/80) 130/64 H Blood Pressure Mean (mm Hg) 86 Source Monitor History Since Last Visit- (Skip if this is Patient's initial visit) Have you changed medications since your No last visit? Any new allergies or adverse reactions No Had a fall/change in ADL's that may No increase risk of falls Signs or symptoms of abuse and/or No neglect since last visit Have you been in the hospital since your No last visit? Has dressing in place as prescribed Yes Has compression in place as prescribed N/A Has offloadiing in place as prescribed N/A Experienced any changes in pain level or No management Pain Scale: 0-10 Numeric Is Patient Pain Free? Yes PATRICIA Garza Nurse 1 - General Ulcer Measurement Start: 11/26/23 08:59 Freq: Status: Active Protocol: Activity Type Activity Date Activity User E-sign Co-sign Detail Recorded Client Recorded Date Recorded By Document 11/26/23 09:08 Desktop 11/26/23 09:12 DL 11/26/23 09:08 Wound Center Nurse 1 1. L abd fold -Current Size (cm) - Length 0.8 -Current Size (cm) - Width 8.8 -Current Size (cm) - Depth 0.1 -Total Square Cm 7.04 -Exudate Amt Medium -Exudate Type Serosanguineous -Wound Margin Distinct, Outline Attached -Granulation Amt Large (67-100%) -Granulation Quality Pale,[place] -Necrosis Amt None Present (0 %) -Structure Exposed N/A -Texture (Lupis-wound Skin Appearance) Scarring -Moisture (Lupis-wound Skin Appearance) No Abnormality -Color (Lupis-wound Skin Appearance) No Abnormality -Temperature (Lupis-wound Skin No Abnormality Appearance) (Pt Warm) -Tenderness on Palpation (Lupis-wound No Skin Appearance) -Ulcer Cleansing Rinsed/ Irrigated with Saline -Foul Odor after Cleansing No -Anesthetic Used 5% Lidocaine Gel WC - Nurse 2 - General Ulcer CM Notes Start: 11/26/23 08:59 Freq: Status: Active Protocol: Activity Type Activity Date Activity User E-sign Co-sign Detail Recorded Client Recorded Date Recorded By Document 11/26/23 09:17 Desktop 11/26/23 09:32 11/26/23 09:17 Wound Center Nurse 2 -Time 09:19 -Correct Patient Yes -Correct Side, Site, Position Yes -Correct Procedure Yes -Procedure Performed Yes -Type of Procedure Debridement -Clinical Debridement Subcutaneous -Tissue Removed Subcutaneous -Post Debridement (cm) - Length 0.3 -Post Debridement (cm) - Width 2.7 -Post Debridement (cm) - Depth 0.1 -Total Square (Post) (cm) 0.81 -Area of Debridement (cm) - Length 0.3 -Area of Debridement (cm) - Width 2.7 -Total Square (Area) (cm) 0.81 -Tunneling No -Undermining/Tunneling No -Circular Undermining No -Wound/Ulcer Outcome Not Healed -Ulcer Cleansing Rinsed/ Irrigated with Saline -Bioengineered Tissue Yes -Type of Bioengineered Tissue Epifix 18mm Disc -Expiration Date 06/18/28 -Product Lot Number [id number] -Percent Used 100 -Lot number of Saline Used [id number] -Bleeding Controlled with Pressure -Treatment Response Procedure Tolerated Well -Offloading No -Debridement - Subq, 1st 20sq cm No -Epifix 18mm Disc 3 Pain Scale: 0-10 Numeric Is Patient Pain Free? Yes - Nurse 3 - General Ulcer D/C NN Start: 11/26/23 08:59 Freq: Status: Active Protocol: Activity Type Activity Date Activity User E-sign Co-sign Detail Recorded Client Recorded Date Recorded By Document 11/26/23 09:42 DL Desktop 11/26/23 09:44 DL 11/26/23 09:42 Wound Care Center Nurse 3 1. L abd fold -Ulcer Cleansing Rinsed/ Irrigated with Saline -Other Dressing Epifix -Other Covering ABD Treatment Response Procedure Tolerated Well Pain Scale: 0-10 Numeric Is Patient Pain Free? Yes WC - Visit Discharge Discharge Condition Stable Ambulatory Status Wheelchair Transportation ECT trans Notes: Dressing applied per Dr. Walsh and Lien Wren today Facility Type Skilled Nursing Care Facility Orders Sent Yes Assessment/Plan Assessment/Plan (1) HTN (hypertension): CODE(S): I10 - Essential (primary) hypertension QUALIFIERS: Hypertension type: primary hypertension Qualified Code(s): I10 - Essential (primary) hypertension (2) Rheumatoid arthritis: CODE(S): M06.9 - Rheumatoid arthritis, unspecified QUALIFIERS: Rheumatoid arthritis location: multiple sites Rheumatoid factor presence: unspecified presence Qualified Code(s): M06.9 - Rheumatoid arthritis, unspecified (3) Polymyalgia rheumatica: CODE(S): M35.3 - Polymyalgia rheumatica (4) Insulin dependent diabetes mellitus: (5) Neuropathy due to type 2 diabetes mellitus: CODE(S): E11.40 - Type 2 diabetes mellitus with diabetic neuropathy, unspecified (6) Skin ulcer of abdomen with fat layer exposed: CODE(S): L98.492 - Non-pressure chronic ulcer of skin of other sites with fat layer exposed (7) Nonhealing nonsurgical wound with fat layer exposed: CODE(S): T14.8XXA - Other injury of unspecified body region, initial encounter (8) Type 2 diabetes mellitus without complications: CODE(S): E11.9 - Type 2 diabetes mellitus without complications QUALIFIERS: Diabetes mellitus extermination inspector insulin use: with extermination inspector use Qualified Code(s): E11.9 - Type 2 diabetes mellitus without complications; Z79.4 - halfway (current) use of insulin PLAN: Plan Debridement performed today in clinic as annotated above. At home wound-care instructions: There has been improvement overall in her ulcer. Epifix #3 applied today to ulcer, rehydrated with saline and covered with wound veil and secured with steri strips. This will stay in place and an outer dressing of Aquacel Extra and ABD will be changed daily for heavy drainage. Due to the poor progression of the healing of her ulcer, advanced wound care product application with Epifix is medically necessary to heal her ulcer. Infection has been resolved and we have received insurance approval for application of Epifix to heal her abdominal ulcer. Off-loading: The patient was instructed to avoid pressure and friction on the affected areas. Reposition every 2 hours at minimum. Avoid prolonged standing and/or dangling of legs. When seated, feet should be elevated at chest level. Frequent ambulation is encouraged. Diet: Patient encouraged to increase protein intake while taking caution to avoid high carbohydrate and/or sugar intake. Labs/cultures/imaging: Wound culture 07/30/23 was positive for anearobic bacteria and Enterococcus, treated x 3 weeks with Augmentin, Cultured again and continued Enterococcus and Aneaerobic bacteria 08/27/23. Wound culture taken 10/01/23 and was positive for Proteus, Enterococcus, and MRSA and she was treated with Augmentin and Bactrim. Follow-up: Return in 2 weeks for wound care follow up. Return sooner or report to the emergency room should symptoms worsen, or new symptoms arise. Note: [employer] speech recognition mold blower software was used to create portions of this document. Sound-alike and misspelled words, as well as other mold blower errors may be contained in the documentation.
[2023-12-10 09:18] VITALS: BP 135/86; PULSE 82; RESP 18; TEMP 35.8; BMI 24.7
--- NOTE | 2023-12-10 13:59 | PCM.WC.PN ---
History of Present Illness Date of Service: 12/10/23 Chief Complaint: abdominal wall ulcer History of Wound: Stacie is a pleasant 78 yo woman that presents to the wound healing center today for evaluation and treatment for a nonhealing ulcer of her abdominal wall that has been present for approximately 6 months. She is a poor historian due to dementia/cognitive impairment. She resides at an assisted living facility in [facility]. She reports that she has 3 sons. She is unable to tell us if she has had any abdominal surgeries or C-sections but the area where the ulcer is located has the appearance of scar tissue and is at the suprapubic area where an incision for a or panniculectomy could be located. It does have the appearance of an old incision site. No surgical history is available and she denies history. She does have diabetes and reports that she has been obese previously and weighed 260 lbs at one point but is now approx. 140 lb. It looks like she has been treated with Silvadene previously. She had been treated with Keflex. Subjective Subjective Stacie returns today for treatment of a nonhealing ulcer of her left abdominal skin fold. There has been improvement to the ulcer and the lupis-wound is much better. SNF has been dressing the ulcer with Aquacel Ag and ABD and Epifix remained in place for 2 weeks. Patient is a poor historian due to dementia. She admits improvement in pain but denies fever, chills, increased drainage or erythema. Wound culture was positive for MRSA, Enterococcus and Proteus bacteria 10/01/23. Objective Data Objective Data Vital Signs: Vital Signs Temp Pulse Resp BP 96.5 F L 82 18 135/86 H 12/10/23 09:18 12/10/23 09:18 12/10/23 09:18 12/10/23 09:18 Weight: 63.503 kg Body Mass Index (BMI) 24.7 Physical Exam Const alert, oriented x3 and no apparent distress General Appearance: cooperative and comfortable HEENT normocephalic and head/scalp atraumatic Resp normal respiratory effort Effort and Inspection: able to speak in complete sentences Cardio regular rate and regular rhythm Skin General Skin Exam: erythema and dermatitis Wounds: wounds noted Wound Narrative: as in clinical panel Psych mental status grossly normal, thought process normal, cooperative and affect normal Debridement Note Debridement Note Wound debrided: left lateral abdomen Laterality: Left Wound Grade/Stage: Stage 3 Type of Debridement: Selective debridement Anesthesia Used: 4% Lidocaine Solution and 5% Lidocaine Gel Depth: Down to and including healthy tissue and in the subcutaneous layer Percentage of wound debrided: 100 Instrument Used: 3mm curette Tissue Removed: Yellow slough, devitalized tissue Severity: Fat Layer Exposed Amount of bleeding with debridement: Mild Bleeding Controlled with: Compression and gauze Patient tolerated procedure: Patient tolerated procedure well Post-Debridement Measurements and Additional Note: Post-Debridement Measurements/Treatment - Nurse 1 - General Ulcer Assessment Start: 11/26/23 08:59 Freq: Status: Active Protocol: [employer] Activity Type Activity Date Activity User E-sign Co-sign Detail Recorded Client Recorded Date Recorded By Document 11/26/23 09:08 DL Desktop 11/26/23 09:12 DL Document 12/10/23 09:18 RB [facility] wound center 12/10/23 09:20 RB 11/26/23 12/10/23 09:08 09:18 - Today's Visit Information Type of service Follow-up Visit Follow-up Visit (Physician/INVESTIGATOR OPERATOR (Physician/INVESTIGATOR OPERATOR ) ) Arrival Mode Wheelchair Wheelchair Transfer Assistance Manual Manual Transfer Assist (Other) x2 Patient Identification Verified (Name & Yes Yes ) Patient Requires Transmission-Based No No Precautions Height and Weight Body Mass Index (BMI) 24.7 24.7 BMI Classification Normal Normal Vital Signs Temperature (97.8 F-99.1 F) 95.8 F L 96.5 F L Temperature Source Temporal Temporal Pulse Rate (60-100) 82 82 Pulse Location Monitor Apical Respiratory Rate (12-18) 20 H 18 Respiratory rate source Observation Observation Blood Pressure (90/60-120/80) 130/64 H 135/86 H Blood Pressure Mean (mm Hg) 86 102 Source Monitor Monitor Position Semi-Fowlers Blood Pressure Location Left Arm History Since Last Visit- (Skip if this is Patient's initial visit) Have you changed medications since your No No last visit? Any new allergies or adverse reactions No No Had a fall/change in ADL's that may No No increase risk of falls Signs or symptoms of abuse and/or No No neglect since last visit Have you been in the hospital since your No No last visit? Has dressing in place as prescribed Yes Yes Has compression in place as prescribed N/A No Has offloadiing in place as prescribed N/A No Experienced any changes in pain level or No No management Pain Scale: 0-10 Numeric Is Patient Pain Free? Yes Yes - Nurse 1 - General Ulcer Measurement Start: 11/26/23 08:59 Freq: Status: Active Protocol: Activity Type Activity Date Activity User E-sign Co-sign Detail Recorded Client Recorded Date Recorded By Document 11/26/23 09:08 DL Desktop 11/26/23 09:12 DL Document 12/10/23 09:18 RB [facility] wound center 12/10/23 09:20 RB 11/26/23 12/10/23 09:08 09:18 Wound Center Nurse 1 1. L abd fold -Combined with other wound No -Current Size (cm) - Length 0.8 0.5 -Current Size (cm) - Width 8.8 3.5 -Current Size (cm) - Depth 0.1 0.1 -Total Square Cm 7.04 1.75 -Tunneling No -Undermining/Tunneling No -Circular Undermining No -Exudate Amt Medium Large -Exudate Type Serosanguineous Serosanguineous -Wound Margin Distinct, Distinct, Outline Outline Attached Attached -Granulation Amt Large (67-100%) Medium (34-66%) -Granulation Quality Pale,[place] -Slough/Fibrin Yes -Necrosis Amt None Present (0 Medium (34-66%) %) -Necrotic Tissue Type Adherent Slough -Structure Exposed N/A N/A -Texture (Lupis-wound Skin Appearance) Scarring Assessed -Moisture (Lupis-wound Skin Appearance) No Abnormality Assessed -Color (Lupis-wound Skin Appearance) No Abnormality Erythema -Temperature (Lupis-wound Skin No Abnormality No Abnormality Appearance) (Pt Warm) (Pt Warm) -Tenderness on Palpation (Lupis-wound No No Skin Appearance) -Ulcer Cleansing Rinsed/ Wound Cleanser Irrigated with Saline -Foul Odor after Cleansing No No -Anesthetic Used 5% Lidocaine 5% Lidocaine Gel Gel - Nurse 2 - General Ulcer CM Notes Start: 11/26/23 08:59 Freq: Status: Active Protocol: Activity Type Activity Date Activity User E-sign Co-sign Detail Recorded Client Recorded Date Recorded By Document 11/26/23 09:17 GM Desktop 11/26/23 09:32 GM Document 12/10/23 09:36 GM WC 12/10/23 09:45 11/26/23 12/10/23 09:17 09:36 Wound Center Nurse 2 1. L abd fold -Time 09:19 09:43 -Correct Patient Yes Yes -Correct Side, Site, Position Yes Yes -Correct Procedure Yes Yes -Procedure Performed Yes Yes -Type of Procedure Debridement Debridement -Clinical Debridement Subcutaneous Subcutaneous -Tissue Removed Subcutaneous Subcutaneous -Post Debridement (cm) - Length 0.3 0.2 -Post Debridement (cm) - Width 2.7 2.6 -Post Debridement (cm) - Depth 0.1 0.1 -Total Square (Post) (cm) 0.81 0.52 -Area of Debridement (cm) - Length 0.3 0.2 -Area of Debridement (cm) - Width 2.7 2.6 -Total Square (Area) (cm) 0.81 0.52 -Tunneling No No -Undermining/Tunneling No No -Circular Undermining No No -Wound/Ulcer Outcome Not Healed Not Healed -Ulcer Cleansing Rinsed/ Rinsed/ Irrigated with Irrigated with Saline Saline -Foul Odor after Cleansing No -Bioengineered Tissue Yes No -Type of Bioengineered Tissue Epifix 18mm Disc -Expiration Date 06/18/28 -Product Lot Number [id number] -Percent Used 100 -Lot number of Saline Used [id number] -Bleeding Controlled with Pressure Pressure -Treatment Response Procedure Procedure Tolerated Well Tolerated Well -Offloading No -Debridement - Subq, 1st 20sq cm No Yes -Epifix 18mm Disc 3 Pain Scale: 0-10 Numeric Is Patient Pain Free? Yes Yes - Nurse 3 - General Ulcer D/C NN Start: 11/26/23 08:59 Freq: Status: Active Protocol: Activity Type Activity Date Activity User E-sign Co-sign Detail Recorded Client Recorded Date Recorded By Document 11/26/23 09:42 DL Desktop 11/26/23 09:44 DL Document 12/10/23 09:58 GM 12/10/23 09:59 11/26/23 12/10/23 09:42 09:58 Wound Care Center Nurse 3 1. L abd fold -Ulcer Cleansing Rinsed/ Not Cleansed Irrigated with Saline -Foul Odor after Cleansing No -Primary Dressing Applied Aquacel Extra -Other Dressing Epifix -Primary Dressing Covered/Secured with Dry Gauze, Secured with Tape,Other -Other Covering ABD abd pad -Aquacel Extra 1 Treatment Response Procedure Tolerated Well Pain Scale: 0-10 Numeric Is Patient Pain Free? Yes Yes WC - Visit Discharge Discharge Condition Stable Stable Ambulatory Status Wheelchair Wheelchair Transportation ECT trans Private Auto Clinical Summary of Care Provided Yes Notes: Dressing applied per Dr. Walsh and Lien Coatess today Facility Type Nursing Home Care Facility Orders Sent Yes Assessment/Plan Assessment/Plan (1) HTN (hypertension): CODE(S): I10 - Essential (primary) hypertension QUALIFIERS: Hypertension type: primary hypertension Qualified Code(s): I10 - Essential (primary) hypertension (2) Rheumatoid arthritis: CODE(S): M06.9 - Rheumatoid arthritis, unspecified QUALIFIERS: Rheumatoid arthritis location: multiple sites Rheumatoid factor presence: unspecified presence Qualified Code(s): M06.9 - Rheumatoid arthritis, unspecified (3) Polymyalgia rheumatica: CODE(S): M35.3 - Polymyalgia rheumatica (4) Insulin dependent diabetes mellitus: (5) Neuropathy due to type 2 diabetes mellitus: CODE(S): E11.40 - Type 2 diabetes mellitus with diabetic neuropathy, unspecified (6) Skin ulcer of abdomen with fat layer exposed: CODE(S): L98.492 - Non-pressure chronic ulcer of skin of other sites with fat layer exposed (7) Nonhealing nonsurgical wound with fat layer exposed: CODE(S): T14.8XXA - Other injury of unspecified body region, initial encounter (8) Type 2 diabetes mellitus without complications: CODE(S): E11.9 - Type 2 diabetes mellitus without complications QUALIFIERS: Diabetes mellitus shelter insulin use: with shelter use Qualified Code(s): E11.9 - Type 2 diabetes mellitus without complications; Z79.4 - residential (current) use of insulin PLAN: Plan Debridement performed today in clinic as annotated above. At home wound-care instructions: There has been improvement overall in her ulcer. Epifix held today due to erythema and skin breakdown. Will continue dressing of Aquacel Extra and ABD will be changed twice daily for heavy drainage. Due to the poor progression of the healing of her ulcer, advanced wound care product application with Epifix is medically necessary to heal her ulcer. Infection has been resolved and we have received insurance approval for application of Epifix to heal her abdominal ulcer. Off-loading: The patient was instructed to avoid pressure and friction on the affected areas. Reposition every 2 hours at minimum. Avoid prolonged standing and/or dangling of legs. When seated, feet should be elevated at chest level. Frequent ambulation is encouraged. Diet: Patient encouraged to increase protein intake while taking caution to avoid high carbohydrate and/or sugar intake. Labs/cultures/imaging: Wound culture 07/30/23 was positive for anearobic bacteria and Enterococcus, treated x 3 weeks with Augmentin, Cultured again and continued Enterococcus and Aneaerobic bacteria 08/27/23. Wound culture taken 10/01/23 and was positive for Proteus, Enterococcus, and MRSA and she was treated with Augmentin and Bactrim. Wound culture taken today. Follow-up: Return in 2 weeks for wound care follow up. Return sooner or report to the emergency room should symptoms worsen, or new symptoms arise. Note: [employer] speech recognition watch and clock maker and repairer software was used to create portions of this document. Sound-alike and misspelled words, as well as other watch and clock maker and repairer errors may be contained in the documentation.
== END 2023-12-17 23:59 | disposition home or self-care (01) ==
LOC: WC 09:00
PROVIDERS: PCP Internal Medicine; Referring Provider Internal Medicine; Visit Provider Family Medicine
DX: E11.622 Type 2 diabetes mellitus with other skin ulcer (principal); L98.492 Non-pressure chronic ulcer of skin of other sites with fat layer exposed; M06.9 Rheumatoid arthritis, unspecified; F03.90 Unspecified dementia, unspecified severity, without behavioral disturbance, psychotic disturbance, mood disturbance, and anxiety; E11.40 Type 2 diabetes mellitus with diabetic neuropathy, unspecified; Z79.4 Long term (current) use of insulin; M35.3 Polymyalgia rheumatica; I10 Essential (primary) hypertension; Z86.14 Personal history of Methicillin resistant Staphylococcus aureus infection
CPT/HCPCS: 11042; 87070; 87075; 87077; 87205; Q4186

== ENCOUNTER 2024-01-07 09:00 | Outpatient (RCR) | payer MEDICARE, MEDICAID, SELFPAY ==
[2023-12-18 00:33] VITALS: BP 148/76; PULSE 95; RESP 18; TEMP 36; BMI 24.7
[2023-12-24 08:56] VITALS: BP 127/64; PULSE 94; RESP 18; BMI 24.7
--- NOTE | 2023-12-24 12:46 | PN.PCM_ITS ---
History of Present Illness Date of Service: 12/24/23 Chief Complaint: abdominal wall ulcer History of Wound: Stacie is a pleasant 78 yo woman that presents to the wound healing center today for evaluation and treatment for a nonhealing ulcer of her abdominal wall that has been present for approximately 6 months. She is a poor historian due to dementia/cognitive impairment. She resides at an assisted living facility in [facility]. She reports that she has 3 sons. She is unable to tell us if she has had any abdominal surgeries or C-sections but the area where the ulcer is located has the appearance of scar tissue and is at the suprapubic area where an incision for a or panniculectomy could be located. It does have the appearance of an old incision site. No surgical history is available and she denies history. She does have diabetes and reports that she has been obese previously and weighed 260 lbs at one point but is now approx. 140 lb. It looks like she has been treated with Silvadene previously. She had been treated with Keflex. Subjective Subjective Stacie returns today for treatment of a nonhealing ulcer of her left abdominal skin fold. There has been improvement to the ulcer and the lupis-wound is better but still erythematous. SNF has been dressing the ulcer with Aquacel Ag and ABD with Nysatin to periwound. Patient is a poor historian due to dementia. She admits improvement in pain but denies fever, chills, increased drainage or erythema. Wound culture was positive for MRSA, Enterococcus and Proteus bacteria 10/01/23. Objective Data Objective Data Vital Signs: Vital Signs Temp Pulse Resp BP O2 Del Method 96.8 F L 94 18 127/64 H Room Air 12/18/23 00:33 12/24/23 08:56 12/24/23 08:56 12/24/23 08:56 12/24/23 08:56 Oxygen Delivery Method Room Air Weight: 63.503 kg Body Mass Index (BMI) 24.7 Physical Exam Const alert, oriented x3 and no apparent distress General Appearance: cooperative and comfortable HEENT normocephalic and head/scalp atraumatic Resp normal respiratory effort Effort and Inspection: able to speak in complete sentences Cardio regular rate and regular rhythm Skin General Skin Exam: erythema and dermatitis Wounds: wounds noted Wound Narrative: as in clinical panel Psych mental status grossly normal, thought process normal, cooperative and affect normal Debridement Note Debridement Note Wound debrided: left lateral abdomen Laterality: Left Type of Debridement: Selective debridement Anesthesia Used: 4% Lidocaine Solution and 5% Lidocaine Gel Depth: Down to and including healthy tissue and in the subcutaneous layer Percentage of wound debrided: 100 Instrument Used: - (gauze) Tissue Removed: Yellow slough, devitalized tissue Severity: Fat Layer Exposed Amount of bleeding with debridement: Mild Bleeding Controlled with: Compression and gauze Patient tolerated procedure: Patient tolerated procedure well Post-Debridement Measurements and Additional Note: Post-Debridement Measurements/Treatment - Nurse 1 - General Ulcer Assessment Start: 12/24/23 08:56 Freq: Status: Active Protocol: JOSUE Activity Type Activity Date Activity User E-sign Co-sign Detail Recorded Client Recorded Date Recorded By Document 12/24/23 08:56 KW wound center 12/24/23 09:10 KW 12/24/23 08:56 WC - Today's Visit Information Type of service Follow-up Visit (Physician/ICEBOX MAN ) Arrival Mode Wheelchair Patient Identification Verified (Name & Yes ) Height and Weight Body Mass Index (BMI) 24.7 BMI Classification Normal Vital Signs Pulse Rate (60-100) 94 Pulse Location Monitor Respiratory Rate (12-18) 18 Respiratory rate source Observation Oxygen Delivery Method Room Air Blood Pressure (90/60-120/80) 127/64 H Blood Pressure Mean (mm Hg) 85 Source Monitor Position Semi-Fowlers Blood Pressure Location Left Arm History Since Last Visit- (Skip if this is Patient's initial visit) Have you changed medications since your No last visit? Any new allergies or adverse reactions No Had a fall/change in ADL's that may No increase risk of falls Signs or symptoms of abuse and/or No neglect since last visit Have you been in the hospital since your No last visit? Has dressing in place as prescribed Yes Has compression in place as prescribed N/A Has offloadiing in place as prescribed N/A Experienced any changes in pain level or No management Left Footwear Regular Shoe Right Footwear Regular Shoe Pain Scale: 0-10 Numeric Is Patient Pain Free? Yes - Nurse 1 - General Ulcer Measurement Start: 12/24/23 08:56 Freq: Status: Active Protocol: Activity Type Activity Date Activity User E-sign Co-sign Detail Recorded Client Recorded Date Recorded By Document 12/24/23 08:56 wound center 12/24/23 09:10 12/24/23 08:56 Wound Center Nurse 1 1. L abd fold -Current Size (cm) - Length 4.5 -Current Size (cm) - Width 0.2 -Current Size (cm) - Depth 0.1 -Total Square Cm 0.90 -Exudate Amt Small -Exudate Type Serosanguineous -Wound Margin Distinct, Outline Attached -Granulation Amt Large (67-100%) -Granulation Quality Red -Texture (Lupis-wound Skin Appearance) Assessed, Excoriation -Moisture (Lupis-wound Skin Appearance) Assessed -Color (Lupis-wound Skin Appearance) Assessed, Erythema -Temperature (Lupis-wound Skin No Abnormality Appearance) (Pt Warm) -Tenderness on Palpation (Lupis-wound No Skin Appearance) -Ulcer Cleansing Soap and Water -Foul Odor after Cleansing No -Anesthetic Used 5% Lidocaine Gel WC - Nurse 2 - General Ulcer CM Notes Start: 12/24/23 08:56 Freq: Status: Active Protocol: Activity Type Activity Date Activity User E-sign Co-sign Detail Recorded Client Recorded Date Recorded By Document 12/24/23 09:19 [facility] 12/24/23 09:26 12/24/23 09:19 Wound Center Nurse 2 -Time 09:19 -Correct Patient Yes -Correct Side, Site, Position Yes -Correct Procedure Yes -Procedure Performed Yes -Type of Procedure Debridement -Clinical Debridement Epidermis / Dermis -Tissue Removed Epidermis -Post Debridement (cm) - Length 0.3 -Post Debridement (cm) - Width 1.0 -Post Debridement (cm) - Depth 0.1 -Total Square (Post) (cm) 0.30 -Area of Debridement (cm) - Length 0.3 -Area of Debridement (cm) - Width 1.0 -Total Square (Area) (cm) 0.30 -Tunneling No -Undermining/Tunneling No -Circular Undermining No -Wound/Ulcer Outcome Not Healed -Ulcer Cleansing Rinsed/ Irrigated with Saline -Foul Odor after Cleansing No -Bleeding Controlled with Pressure -Treatment Response Procedure Tolerated Well -Debridement - Open, 1st 20sq cm Yes Pain Scale: 0-10 Numeric Is Patient Pain Free? Yes PATRICIA - Nurse 3 - General Ulcer D/C NN Start: 12/24/23 08:56 Freq: Status: Active Protocol: Activity Type Activity Date Activity User E-sign Co-sign Detail Recorded Client Recorded Date Recorded By Document 12/24/23 09:39 KW wound center 12/24/23 09:39 12/24/23 09:39 Wound Care Center Nurse 3 1. L abd fold -Primary Dressing Applied Aquacel Extra -Primary Dressing Covered/Secured with Dry Gauze, Secured with Tape -Aquacel Extra 1 Pain Scale: 0-10 Numeric Is Patient Pain Free? Yes WC - Visit Discharge Discharge Condition Stable Ambulatory Status Wheelchair Medication Reconcilliation completed & No provided to patient/care provider Clinical Summary of Care Provided Yes Assessment/Plan Assessment/Plan (1) HTN (hypertension): CODE(S): I10 - Essential (primary) hypertension QUALIFIERS: Hypertension type: primary hypertension Qualified Code(s): I10 - Essential (primary) hypertension (2) Rheumatoid arthritis: CODE(S): M06.9 - Rheumatoid arthritis, unspecified QUALIFIERS: Rheumatoid arthritis location: multiple sites Rheumatoid factor presence: unspecified presence Qualified Code(s): M06.9 - Rheumatoid arthritis, unspecified (3) Polymyalgia rheumatica: CODE(S): M35.3 - Polymyalgia rheumatica (4) Insulin dependent diabetes mellitus: (5) Neuropathy due to type 2 diabetes mellitus: CODE(S): E11.40 - Type 2 diabetes mellitus with diabetic neuropathy, unspecified (6) Skin ulcer of abdomen with fat layer exposed: CODE(S): L98.492 - Non-pressure chronic ulcer of skin of other sites with fat layer exposed (7) Nonhealing nonsurgical wound with fat layer exposed: CODE(S): T14.8XXA - Other injury of unspecified body region, initial encounter (8) Type 2 diabetes mellitus without complications: CODE(S): E11.9 - Type 2 diabetes mellitus without complications QUALIFIERS: Diabetes mellitus termite treater helper insulin use: with [facility]ci use Qualified Code(s): E11.9 - Type 2 diabetes mellitus without complications; Z79.4 - buttermaker continuous churn (current) use of insulin PLAN: Plan Debridement performed today in clinic as annotated above. At home wound-care instructions: There has been improvement overall in her ulcer but the periwound is still irritated. Will hold Epifix again today due to erythema and skin breakdown. Will continue dressing of Aquacel Extra and ABD will be changed twice daily for heavy drainage. Due to the poor progression of the healing of her ulcer, advanced wound care product application with Epifix is medically necessary to heal her ulcer. Infection has been resolved and we have received insurance approval for application of Epifix to heal her abdominal ulcer. Off-loading: The patient was instructed to avoid pressure and friction on the affected areas. Reposition every 2 hours at minimum. Avoid prolonged standing and/or dangling of legs. When seated, feet should be elevated at chest level. Frequent ambulation is encouraged. Diet: Patient encouraged to increase protein intake while taking caution to avoid high carbohydrate and/or sugar intake. Labs/cultures/imaging: Wound culture 07/30/23 was positive for anearobic bacteria and Enterococcus, treated x 3 weeks with Augmentin, Cultured again and continued Enterococcus and Aneaerobic bacteria 08/27/23. Wound culture taken 10/01/23 and was positive for Proteus, Enterococcus, and MRSA and she was treated with Augmentin and Bactrim. Wound culture taken today. Follow-up: Return in 2 weeks for wound care follow up. Return sooner or report to the emergency room should symptoms worsen, or new symptoms arise. Note: [employer] speech recognition felling bucking supervisor software was used to create portions of this document. Sound-alike and misspelled words, as well as other felling bucking supervisor errors may be contained in the documentation.
[2024-01-07 09:12] VITALS: BP 173/84; PULSE 98; RESP 18; TEMP 35.6; BMI 24.7
--- NOTE | 2024-01-07 12:36 | PCM.WC.PN ---
History of Present Illness Date of Service: 01/07/24 Chief Complaint: abdominal wall ulcer History of Wound: Stacie is a pleasant 78 yo woman that presents to the wound healing center today for evaluation and treatment for a nonhealing ulcer of her abdominal wall that has been present for approximately 6 months. She is a poor historian due to dementia/cognitive impairment. She resides at an assisted living facility in [facility]. She reports that she has 3 sons. She is unable to tell us if she has had any abdominal surgeries or C-sections but the area where the ulcer is located has the appearance of scar tissue and is at the suprapubic area where an incision for a or panniculectomy could be located. It does have the appearance of an old incision site. No surgical history is available and she denies history. She does have diabetes and reports that she has been obese previously and weighed 260 lbs at one point but is now approx. 140 lb. It looks like she has been treated with Silvadene previously. She had been treated with Keflex. Subjective Subjective Stacie returns today for treatment of a nonhealing ulcer of her left abdominal skin fold. Her ulcer is healed. Patient is a poor historian due to dementia. She admits improvement in pain but denies fever, chills, increased drainage or erythema. Objective Data Objective Data Vital Signs: Vital Signs Temp Pulse Resp BP O2 Del Method 96.1 F L 98 18 173/84 H Room Air 01/07/24 09:12 01/07/24 09:12 01/07/24 09:12 01/07/24 09:12 12/24/23 08:56 Oxygen Delivery Method Room Air Weight: 63.503 kg Body Mass Index (BMI) 24.7 Lab / Micro Data Micro: Microbiology 12/24/23 09:25 Ulcer, Decubitus - Abdominal Gram Stain - Final 12/24/23 09:25 Ulcer, Decubitus - Abdominal Wound Culture - Final Enterococcus faecalis Corynebacterium striatum 12/24/23 09:25 Ulcer, Decubitus - Abdominal Anaerobic Culture - Final No anaerobic bacteria isolated. Physical Exam Const alert, oriented x3 and no apparent distress General Appearance: cooperative and comfortable HEENT normocephalic and head/scalp atraumatic Resp normal respiratory effort Effort and Inspection: able to speak in complete sentences Cardio regular rate and regular rhythm Skin General Skin Exam: erythema and dermatitis Wounds: wounds noted Wound Narrative: as in clinical panel Psych mental status grossly normal, thought process normal, cooperative and affect normal Debridement Note Debridement Note Wound debrided: left lateral abdomen No debridement was completed: No debridement was completed today (ulcer healed) Post-Debridement Measurements and Additional Note: Post-Debridement Measurements/Treatment PATRICIA - Nurse 1 - General Ulcer Assessment Start: 12/24/23 08:56 Freq: Status: Active Protocol: JOSUE Activity Type Activity Date Activity User E-sign Co-sign Detail Recorded Client Recorded Date Recorded By Document 12/24/23 08:56 [facility] wound center 12/24/23 09:10 12/24/23 08:56 WC - Today's Visit Information Type of service Follow-up Visit (Physician/DISTRICT ADVISER ) Arrival Mode Wheelchair Patient Identification Verified (Name & Yes ) Height and Weight Body Mass Index (BMI) 24.7 BMI Classification Normal Vital Signs Pulse Rate (60-100) 94 Pulse Location Monitor Respiratory Rate (12-18) 18 Respiratory rate source Observation Oxygen Delivery Method Room Air Blood Pressure (90/60-120/80) 127/64 H Blood Pressure Mean (mm Hg) 85 Source Monitor Position Semi-Fowlers Blood Pressure Location Left Arm History Since Last Visit- (Skip if this is Patient's initial visit) Have you changed medications since your No last visit? Any new allergies or adverse reactions No Had a fall/change in ADL's that may No increase risk of falls Signs or symptoms of abuse and/or No neglect since last visit Have you been in the hospital since your No last visit? Has dressing in place as prescribed Yes Has compression in place as prescribed N/A Has offloadiing in place as prescribed N/A Experienced any changes in pain level or No management Left Footwear Regular Shoe Right Footwear Regular Shoe Pain Scale: 0-10 Numeric Is Patient Pain Free? Yes PATRICIA - Nurse 1 - General Ulcer Measurement Start: 12/24/23 08:56 Freq: Status: Active Protocol: Activity Type Activity Date Activity User E-sign Co-sign Detail Recorded Client Recorded Date Recorded By Document 12/24/23 08:56 [facility] wound center 12/24/23 09:10 12/24/23 08:56 Wound Center Nurse 1 1. L abd fold -Current Size (cm) - Length 4.5 -Current Size (cm) - Width 0.2 -Current Size (cm) - Depth 0.1 -Total Square Cm 0.90 -Exudate Amt Small -Exudate Type Serosanguineous -Wound Margin Distinct, Outline Attached -Granulation Amt Large (67-100%) -Granulation Quality Red -Texture (Lupis-wound Skin Appearance) Assessed, Excoriation -Moisture (Lupis-wound Skin Appearance) Assessed -Color (Lupis-wound Skin Appearance) Assessed, Erythema -Temperature (Lupis-wound Skin No Abnormality Appearance) (Pt Warm) -Tenderness on Palpation (Lupis-wound No Skin Appearance) -Ulcer Cleansing Soap and Water -Foul Odor after Cleansing No -Anesthetic Used 5% Lidocaine Gel - Nurse 2 - General Ulcer CM Notes Start: 12/24/23 08:56 Freq: Status: Active Protocol: Activity Type Activity Date Activity User E-sign Co-sign Detail Recorded Client Recorded Date Recorded By Document 12/24/23 09:19 [facility] 12/24/23 09:26 12/24/23 09:19 Wound Center Nurse 2 -Time 09:19 -Correct Patient Yes -Correct Side, Site, Position Yes -Correct Procedure Yes -Procedure Performed Yes -Type of Procedure Debridement -Clinical Debridement Epidermis / Dermis -Tissue Removed Epidermis -Post Debridement (cm) - Length 0.3 -Post Debridement (cm) - Width 1.0 -Post Debridement (cm) - Depth 0.1 -Total Square (Post) (cm) 0.30 -Area of Debridement (cm) - Length 0.3 -Area of Debridement (cm) - Width 1.0 -Total Square (Area) (cm) 0.30 -Tunneling No -Undermining/Tunneling No -Circular Undermining No -Wound/Ulcer Outcome Not Healed -Ulcer Cleansing Rinsed/ Irrigated with Saline -Foul Odor after Cleansing No -Bleeding Controlled with Pressure -Treatment Response Procedure Tolerated Well -Debridement - Open, 1st 20sq cm Yes Pain Scale: 0-10 Numeric Is Patient Pain Free? Yes - Nurse 3 - General Ulcer D/C NN Start: 12/24/23 08:56 Freq: Status: Active Protocol: Activity Type Activity Date Activity User E-sign Co-sign Detail Recorded Client Recorded Date Recorded By Document 12/24/23 09:39 wound center 12/24/23 09:39 12/24/23 09:39 Wound Care Center Nurse 3 1. L abd fold -Primary Dressing Applied Aquacel Extra -Primary Dressing Covered/Secured with Dry Gauze, Secured with Tape -Aquacel Extra 1 Pain Scale: 0-10 Numeric Is Patient Pain Free? Yes WC - Visit Discharge Discharge Condition Stable Ambulatory Status Wheelchair Medication Reconcilliation completed & No provided to patient/care provider Clinical Summary of Care Provided Yes Assessment/Plan Assessment/Plan (1) HTN (hypertension): CODE(S): I10 - Essential (primary) hypertension QUALIFIERS: Hypertension type: primary hypertension Qualified Code(s): I10 - Essential (primary) hypertension (2) Rheumatoid arthritis: CODE(S): M06.9 - Rheumatoid arthritis, unspecified QUALIFIERS: Rheumatoid arthritis location: multiple sites Rheumatoid factor presence: unspecified presence Qualified Code(s): M06.9 - Rheumatoid arthritis, unspecified (3) Polymyalgia rheumatica: CODE(S): M35.3 - Polymyalgia rheumatica (4) Insulin dependent diabetes mellitus: (5) Neuropathy due to type 2 diabetes mellitus: CODE(S): E11.40 - Type 2 diabetes mellitus with diabetic neuropathy, unspecified (6) Skin ulcer of abdomen with fat layer exposed: CODE(S): L98.492 - Non-pressure chronic ulcer of skin of other sites with fat layer exposed (7) Nonhealing nonsurgical wound with fat layer exposed: CODE(S): T14.8XXA - Other injury of unspecified body region, initial encounter (8) Type 2 diabetes mellitus without complications: CODE(S): E11.9 - Type 2 diabetes mellitus without complications QUALIFIERS: Diabetes mellitus western felt hat blocker insulin use: with western felt hat blocker use Qualified Code(s): E11.9 - Type 2 diabetes mellitus without complications; Z79.4 - wire spooler (current) use of insulin PLAN: Plan Evaluation of ulcer performed today in clinic as annotated above. At home wound-care instructions: The ulcer is healed and her surrounding skin looks great. Will cover the area with an ABD changed daily for the next 2 weeks. Off-loading: The patient was instructed to avoid pressure and friction on the affected areas. Reposition every 2 hours at minimum. Avoid prolonged standing and/or dangling of legs. When seated, feet should be elevated at chest level. Frequent ambulation is encouraged. Diet: Patient encouraged to increase protein intake while taking caution to avoid high carbohydrate and/or sugar intake. Labs/cultures/imaging: Wound culture 07/30/23 was positive for anearobic bacteria and Enterococcus, treated x 3 weeks with Augmentin, Cultured again and continued Enterococcus and Anaerobic bacteria 08/27/23. Wound culture taken 10/01/23 and was positive for Proteus, Enterococcus, and MRSA and she was treated with Augmentin and Bactrim. Wound culture was positive on 12/24/23 and she was treated with Augmentin. Follow-up: She will be discharged and we will see her back in the future if she develops any ulcers. Note: [employer] speech recognition physician compensation analyst software was used to create portions of this document. Sound-alike and misspelled words, as well as other physician compensation analyst errors may be contained in the documentation.
--- NOTE | 2024-01-10 10:37 | WC ---
PHOTO 01/07/2024 ABD
== END 2024-01-07 11:53 | disposition home or self-care (01) ==
LOC: WC 09:00
PROVIDERS: PCP Internal Medicine; Referring Provider Internal Medicine; Visit Provider Family Medicine
DX: E11.622 Type 2 diabetes mellitus with other skin ulcer (principal); L98.492 Non-pressure chronic ulcer of skin of other sites with fat layer exposed; M06.9 Rheumatoid arthritis, unspecified; F03.90 Unspecified dementia, unspecified severity, without behavioral disturbance, psychotic disturbance, mood disturbance, and anxiety; E11.40 Type 2 diabetes mellitus with diabetic neuropathy, unspecified; Z79.4 Long term (current) use of insulin; Z86.14 Personal history of Methicillin resistant Staphylococcus aureus infection; M35.3 Polymyalgia rheumatica; I10 Essential (primary) hypertension
CPT/HCPCS: 87070; 87075; 87077; 87186; 87205; 97597; 99213; G0463